=== PATIENT | female | born 2000 | race Caucasian/White ===

== ENCOUNTER 2018-11-20 09:21 | Emergency (ER) | payer SELFPAY ==
--- NOTE | 2018-11-20 09:58 | EDPHYS ---
Physician Documentation [facility] Name: Ariella Mei Age: 18 yrs Sex: Female : 2000 Arrival Date: 11/20/2018 Time: 09:23 Bed 18 Private MD: ED Physician Denis Soto HPI: 11/20 11:29 This 18 yrs old Female presents to ER via Ambulatory with complaints of Ear snw Pain. 11:29 The patient presents with pain, that is acute. The complaints affect the left ear. snw Onset: The symptoms/episode began/occurred gradually, 1 month(s) ago, and became worse yesterday, and became persistent. Associated signs and symptoms: Pertinent positives: fever. Severity of symptoms: At their worst the symptoms were moderate severe. The patient has not experienced similar symptoms in the past. The patient has not recently seen a physician. 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 - Social history:: Smoking status: . - Ebola Screening: : Patient denies travel to an Ebola-affected area in the 21 days before illness onset. ROS: 11:29 Constitutional: Negative for fever, chills, and weight loss, Eyes: Negative for injury, snw pain, redness, and discharge, Neck: Negative for injury, pain, and swelling, Cardiovascular: Negative for chest pain, palpitations, and edema, Respiratory: Negative for shortness of breath, cough, wheezing, and pleuritic chest pain, Abdomen/GI: Negative for abdominal pain, nausea, vomiting, diarrhea, and constipation, Back: Negative for injury and pain, : Negative for injury, bleeding, discharge, and swelling, MS/Extremity: Negative for injury and deformity, Skin: Negative for injury, rash, and discoloration, Neuro: Negative for headache, weakness, numbness, tingling, and seizure. 11:29 ENT: Positive for ear pain, of the left ear. Exam: 11:28 Constitutional: This is a well developed, well nourished patient who is awake, alert, snw and in no acute distress. Head/Face: Normocephalic, atraumatic. Eyes: Pupils equal round and reactive to light, extra-ocular motions intact. Lids and lashes normal. Conjunctiva and sclera are non-icteric and not injected. Cornea within normal limits. Periorbital areas with no swelling, redness, or edema. Neck: Trachea midline, no thyromegaly or masses palpated, and no cervical lymphadenopathy. Supple, full range of motion without nuchal rigidity, or vertebral point tenderness. No Meningismus. Chest/axilla: Normal chest wall appearance and motion. Nontender with no deformity. No lesions are appreciated. Cardiovascular: Regular rate and rhythm with a normal S1 and S2. No gallops, murmurs, or rubs. Normal PMI, no JVD. No pulse deficits. Respiratory: Lungs have equal breath sounds bilaterally, clear to auscultation and percussion. No rales, rhonchi or wheezes noted. No increased work of breathing, no retractions or nasal flaring. Abdomen/GI: Soft, non-tender, with normal bowel sounds. No distension or tympany. No guarding or rebound. No evidence of tenderness throughout. Back: No spinal tenderness. No costovertebral tenderness. Full range of motion. Skin: Warm, dry with normal turgor. Normal color with no rashes, no lesions, and no evidence of cellulitis. MS/ Extremity: Pulses equal, no cyanosis. Neurovascular intact. Full, normal range of motion. Neuro: Awake and alert, GCS 15, oriented to person, place, time, and situation. Cranial nerves II-XII grossly intact. Motor strength 5/5 in all extremities. Sensory grossly intact. Cerebellar exam normal. Normal gait. 11:28 ENT: External ear(s): are unremarkable, Ear canal(s): erythema, purulent discharge, that is moderate, in the left canal, swelling, TM's: not visable, because of discharge, Nose: is normal, Mouth: is normal, Posterior pharynx: is normal, erythema, that is mild, Voice: is normal. Vital Signs: 09:29 BP 122 / 65; Pulse 84; Resp 17; Temp 97.6(TE); Pulse Ox 98% on R/A; Pain 10/10; tw2 MDM: 09:41 Patient medically screened. snw 11:28 Data reviewed: vital signs, nurses notes. Data interpreted: Pulse oximetry: on room air snw is 98 %. Interpretation: normal. Counseling: I had a detailed discussion with the patient and/or guardian regarding: the historical points, exam findings, and any diagnostic results supporting the discharge/admit diagnosis, the need for outpatient follow up, to return to the emergency department if symptoms worsen or persist or if there are any questions or concerns that arise at home. Special discussion: Based on the history and exam findings, there is no indication for further emergent testing or inpatient evaluation. I discussed with the patient/guardian the need to see the ENT specialist for further evaluation of the symptoms. I discussed with the patient/guardian the need to see the primary care provider for further evaluation of the symptoms. Administered Medications: 09:59 Drug: [place] 5 mg-325 mg 1 tabs Route: PO; tw2 10:19 Follow up: Response: No adverse reaction tw2 09:59 Drug: Augmentin 875 mg Route: PO; tw2 10:20 Follow up: Response: No adverse reaction tw2 09:59 Drug: Decadron 8 mg Route: PO; tw2 10:20 Follow up: Response: No adverse reaction tw2 10:00 Drug: Cortisporin Drops 4 drops Route: Otic; Site: left ear; tw2 10:20 Follow up: Response: No adverse reaction tw2 Disposition: 12:38 Co-signature as Attending Physician, Denis Soto MD. rn Disposition: 11/20/18 09:57 Discharged to Home. Impression: Acute contact otitis externa. - Condition is Stable. - Discharge Instructions: Ibuprofen Dosage Chart, Pediatric, Otitis Externa, Heat Therapy. - Prescriptions for Polytrim 10,000 unit- 1 mg/mL Ophthalmic drops - instill 4 drop by OTIC route every 6 hours for 7 days; 1 Container. Amoxicillin 500 mg Oral Capsule - take 1 capsule by ORAL route every 8 hours for 10 days; 30 tablet. Tylenol- Codeine #3 300-30 mg Oral Tablet - take 2 tablets by ORAL route every 6 hours As needed; 20 tablet. - Medication Reconciliation Form, Thank You Letter, Antibiotic Education, Prescription Opioid Use, Work release form form. - Follow up: Private Physician; When: 2 - 3 days; Reason: Recheck today's complaints, Continuance of care, Re-evaluation by your physician. Follow up: Emergency Department; When: As needed; Reason: Worsening of condition. Signatures: Genoveva Ramos, KAREN-C DIRECTOR OF ENVIRONMENTAL SERVICES-Csnw Denis Soto MD MD rn WheatJailyn RN RN tw2 Corrections: (The following items were deleted from the chart) 10:21 09:57 11/20/2018 09:57 Discharged to Home. Impression: Acute contact otitis externa. tw2 Condition is Stable. Forms are Work release form, Medication Reconciliation Form, Thank You Letter, Antibiotic Education, Prescription Opioid Use. Follow up: Private Physician; When: 2 - 3 days; Reason: Recheck today's complaints, Continuance of care, Re-evaluation by your physician. Follow up: Emergency Department; When: As needed; Reason: Worsening of condition. snw
--- NOTE | 2018-11-20 09:58 | ER ---
Nurse's Notes [facility] Name: Ariella Mei Age: 18 yrs Sex: Female : 2000 Arrival Date: 11/20/2018 Time: 09:23 Bed 18 Private MD: Diagnosis: Acute contact otitis externa Presentation: 11/20 09:28 Presenting complaint: Patient states: i have been having LEFT ear pain for 3 weeks, i tw2 have been putting hydrogen peroxide in there and it hasnt helped. Transition of care: patient was not received from another setting of care. Onset of symptoms was November 20, 2018. Risk Assessment: Do you want to hurt yourself or someone else? Patient reports no desire to harm self or others. Initial Sepsis Screen: Does the patient meet any 2 criteria? No. Patient's initial sepsis screen is negative. Does the patient have a suspected source of infection? No. Patient's initial sepsis screen is negative. Care prior to arrival: None. 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 - Social history:: Smoking status: . - Ebola Screening: : Patient denies travel to an Ebola-affected area in the 21 days before illness onset. Screenin:36 Abuse screen: Denies threats or abuse. Nutritional screening: No deficits noted. tw2 Tuberculosis screening: No symptoms or risk factors identified. Fall Risk None identified. Assessment: 09:30 General: Appears in no apparent distress. well groomed, Behavior is calm, cooperative, tw2 appropriate for age. Pain: Complains of pain in left ear. Neuro: Level of Consciousness is awake, alert, obeys commands, Oriented to person, place, time, situation. Cardiovascular: Patient's skin is warm and dry. Respiratory: Airway is patent Respiratory effort is even, unlabored, Respiratory pattern is regular, symmetrical. GI: No signs and/or symptoms were reported involving the gastrointestinal system. : No signs and/or symptoms were reported regarding the genitourinary system. EENT: Denies drainage from ears. Derm: No signs and/or symptoms reported regarding the dermatologic system. Musculoskeletal: Range of motion: intact in all extremities. 10:20 Reassessment: Patient appears in no apparent distress at this time. No changes from tw2 previously documented assessment. Patient and/or family updated on plan of care and expected duration. Pain level reassessed. Patient is alert, oriented x 3, equal unlabored respirations, skin warm/dry/pink. Vital Signs: 09:29 BP 122 / 65; Pulse 84; Resp 17; Temp 97.6(TE); Pulse Ox 98% on R/A; Pain 10/10; tw2 ED Course: :23 Patient arrived in ED. as 09:24 Genoveva Ramos [facility]-C [facility] snw 09:24 Denis Soto MD is Attending Physician. snw 09:25 Bed in low position. Call light in reach. Adult w/ patient. Pulse ox on. NIBP on. tw2 09:28 Jailyn Wheat, NEY is Primary Nurse. tw2 09:29 Triage completed. tw2 09:30 Arm band placed on. tw2 10:20 No provider procedures requiring assistance completed. Patient did not have IV access tw2 during this emergency room visit. Administered Medications: 09:59 Drug: [place] 5 mg-325 mg 1 tabs Route: PO; tw2 10:19 Follow up: Response: No adverse reaction tw2 09:59 Drug: Augmentin 875 mg Route: PO; tw2 10:20 Follow up: Response: No adverse reaction tw2 09:59 Drug: Decadron 8 mg Route: PO; tw2 10:20 Follow up: Response: No adverse reaction tw2 10:00 Drug: Cortisporin Drops 4 drops Route: Otic; Site: left ear; tw2 10:20 Follow up: Response: No adverse reaction tw2 Outcome: 09:57 Discharge ordered by . snw 10:21 Discharged to home ambulatory, with family. tw2 10:21 Condition: stable 10:21 Discharge instructions given to patient, family, Instructed on discharge instructions, follow up and referral plans. no drinking with medication, no driving heavy equipment, medication usage, Demonstrated understanding of instructions, follow-up care, medications, Prescriptions given X 3. 10:21 Patient left the ED. tw2 Signatures: Genoveva Ramos, OVERLOCK WAISTLINE JOINER-C OVERLOCK WAISTLINE JOINER-Csnw Ena Doty Tara, RN RN tw2
[2018-11-20] MEDS ORDERED: HYDROCODONE/APAP 5/325 MG TAB ONE (10:03)
[2018-11-20] MEDS ORDERED: NEOMY/POLY/HC 1% OTIC DROPS ONE (10:03)
[2018-11-20] MEDS ORDERED: AMOX/K CLAV 875 MG TAB ONE ×2 (10:04)
[2018-11-20] MEDS ORDERED: DEXAMETHASONE 10 MG/ML VIAL ONE (10:05)
[2018-11-20 10:27] VITALS: BP 122/65; TEMP 97.6; O2SAT 98
== END 2018-11-20 10:21 | disposition home or self-care (01) ==
LOC: ER 09:21
DX: H60.532 Acute contact otitis externa, left ear (principal); D68.0 Von Willebrand disease
CPT/HCPCS: 99283; J1100

== ENCOUNTER 2018-12-19 06:56 | Emergency (ER) | payer SELFPAY ==
[2018-12-19 08:02] LABS: Absolute Lymphocytes (CBC) 1.9 K/uL (0.7-4.9); Absolute Monocytes 0.6 K/uL (0.1-1.3); Absolute Neutrophil 4.3 K/uL (1.8-8.0); Basophils % 0.5 % (0-1.3); Eosinophils % 3.5 % (0-4.4); Hematocrit 37.5 % (36.0-45.0); Lymphocytes % 26.9 % (15.3-44.8); MPV 8.7 fL (7.6-11.3); Monocytes % 8.4 % (3.3-12.3); RBC Red Blood Cell Count 4.56 M/uL (3.86-4.86)
--- NOTE | 2018-12-19 08:23 | EDPHYS ---
Physician Documentation [facility] Name: Ariella Mei Age: 18 yrs Sex: Female : 2000 Arrival Date: 12/19/2018 Time: 06:58 Bed 13 Private MD: ED Physician Yoan Stack HPI: 12/19 07:26 This 18 yrs old Female presents to ER via Ambulatory with complaints of ps1 Vaginal Bleeding. 07:35 patient states that she had a missed cycle last month and then started this morning ps1 with heavy menstruation. She has a history of VWD. She does not have PCP. States that she soaked 10-15 pads this morning since 330 am. She states that she has stopped bleeding now but is concerned because of her VWD. She does not attest to being lightheaded or short of breath. Preg negative 1+blood in UA. . 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 - Social history:: Smoking status: Patient uses tobacco products, 1 pack per week. - Ebola Screening: : Patient negative for fever greater than or equal to 101.5 degrees Fahrenheit, and additional compatible Ebola Virus Disease symptoms Patient denies exposure to infectious person Patient denies travel to an Ebola-affected area in the 21 days before illness onset No symptoms or risks identified at this time. ROS: 07:35 Constitutional: Negative for fever, chills, and weight loss, Eyes: Negative for injury, ps1 pain, redness, and discharge, Cardiovascular: Negative for chest pain, palpitations, and edema, Respiratory: Negative for shortness of breath, cough, wheezing, and pleuritic chest pain, Abdomen/GI: Negative for abdominal pain, nausea, vomiting, diarrhea, and constipation, Back: Negative for injury and pain, MS/Extremity: Negative for injury and deformity, Neuro: Negative for headache, weakness, numbness, tingling, and seizure, Psych: Negative for depression, anxiety, suicide ideation, homicidal ideation, and hallucinations. 07:35 : Positive for vaginal bleeding. Exam: 07:35 Constitutional: This is a well developed, well nourished patient who is awake, alert, ps1 and in no acute distress. Head/Face: Normocephalic, atraumatic. Eyes: Pupils equal round and reactive to light, extra-ocular motions intact. Lids and lashes normal. Conjunctiva and sclera are non-icteric and not injected. Chest/axilla: Normal chest wall appearance and motion. Nontender with no deformity. No lesions are appreciated. Cardiovascular: Regular rate and rhythm. No gallops, murmurs, or rubs. Normal PMI, no JVD. No pulse deficits. Respiratory: Lungs have equal breath sounds bilaterally, clear to auscultation and percussion. No rales, rhonchi or wheezes noted. No increased work of breathing, no retractions or nasal flaring. Skin: Warm, dry with normal turgor. Normal color with no rashes, no lesions, and no evidence of cellulitis. MS/ Extremity: Pulses equal, no cyanosis. Neurovascular intact. Full, normal range of motion. Neuro: Awake and alert, GCS 15, oriented to person, place, time, and situation. Cranial nerves II-XII grossly intact. Sensory grossly intact. Psych: Awake, alert, with orientation to person, place and time. Behavior, mood, and affect are within normal limits. Vital Signs: 07:11 BP 114 / 83; Pulse 80; Resp 16; Pulse Ox 99% on R/A; Weight 81.65 kg; Height 5 ft. 6 iw in. (167.64 cm); Pain 9/10; 08:42 BP 117 / 79; Pulse 75; Resp 14; Pulse Ox 100% ; bp 07:11 Body Mass Index 29.05 (81.65 kg, 167.64 cm) iw MDM: 07:40 Patient medically screened. ps1 08:22 Data reviewed: vital signs, nurses notes, lab test result(s), and as a result, I will ps1 discharge patient. Counseling: I had a detailed discussion with the patient and/or guardian regarding: the historical points, exam findings, and any diagnostic results supporting the discharge/admit diagnosis, the presence of at least one elevated blood pressure reading (>120/80) during this emergency department visit, lab results, the need for outpatient follow up, Hematology, to return to the emergency department if symptoms worsen or persist or if there are any questions or concerns that arise at home. ED course: Patient has stopped bleeding and has normal hemoglobin. Patient stable for discharge. Return if lightheaded or has > 10 pads in 24 hours. . 12/19 07:21 Order name: CBC with Diff; Complete Time: 08:16 ps1 12/19 07:46 Order name: Urine Dipstick--Ancillary (enter results) bd 12/19 07:21 Order name: Urine Dipstick-Ancillary (obtain specimen); Complete Time: 07:29 ps1 12/19 07:21 Order name: Urine Test (obtain specimen); Complete Time: 07:29 ps1 12/19 07:46 Order name: Urine --Ancillary (enter results) bd Administered Medications: No medications were administered Disposition: 12/19/18 08:21 Discharged to Home. Impression: Menorrhagia. - Condition is Stable. - Discharge Instructions: Menorrhagia. - Medication Reconciliation Form, Thank You Letter, Antibiotic Education, Prescription Opioid Use form. - Follow up: Private Physician; When: As needed; Reason: Further diagnostic work-up, Recheck today's complaints, Continuance of care, Re-evaluation by your physician. Follow up: Emergency Department; When: As needed; Reason: Worsening of condition, lightheaded, short of breath, continued heavy vaginal bleeding > 10 pads in next 24 hours. . - Problem is new. - Symptoms have improved. Signatures: Dispatcher [employer] EDMima Finnegan RN RN iw Peltier, Brian, RN RN bp Singer, Phillip, MD MD ps1 Corrections: (The following items were deleted from the chart) 08:44 08:21 12/19/2018 08:21 Discharged to Home. Impression: Menorrhagia. Condition is bp Stable. Forms are Medication Reconciliation Form, Thank You Letter, Antibiotic Education, Prescription Opioid Use. Follow up: Private Physician; When: As needed; Reason: Further diagnostic work-up, Recheck today's complaints, Continuance of care, Re-evaluation by your physician. Follow up: Emergency Department; When: As needed; Reason: Worsening of condition, lightheaded, short of breath, continued heavy vaginal bleeding > 10 pads in next 24 hours. . Problem is new. Symptoms have improved. ps1
--- NOTE | 2018-12-19 08:23 | ER ---
Nurse's Notes [facility] Name: Ariella Mei Age: 18 yrs Sex: Female : 2000 Arrival Date: 12/19/2018 Time: 06:58 Bed 13 Private MD: Diagnosis: Menorrhagia Presentation: 12/19 07:09 Presenting complaint: Patient states: heavy vaginal bleeding and cramping since this iw morning at 0345, LMP was late September. Transition of care: patient was not received from another setting of care. Onset of symptoms was December 19, 2018. Risk Assessment: Do you want to hurt yourself or someone else? Patient reports no desire to harm self or others. Initial Sepsis Screen: Does the patient meet any 2 criteria? No. Patient's initial sepsis screen is negative. Does the patient have a suspected source of infection? No. Patient's initial sepsis screen is negative. Care prior to arrival: None. 07:09 Method Of Arrival: Ambulatory iw 07:09 Acuity: JEFF 3 iw Triage Assessment: 07:17 General: Appears in no apparent distress. comfortable, Behavior is cooperative, bp appropriate for age, anxious. Pain: Denies pain. : Reports vaginal bleeding that is bright red, heavy flow. 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 - Social history:: Smoking status: Patient uses tobacco products, 1 pack per week. - Ebola Screening: : Patient negative for fever greater than or equal to 101.5 degrees Fahrenheit, and additional compatible Ebola Virus Disease symptoms Patient denies exposure to infectious person Patient denies travel to an Ebola-affected area in the 21 days before illness onset No symptoms or risks identified at this time. Screenin:19 Abuse screen: Denies threats or abuse. Denies injuries from another. Nutritional bp screening: No deficits noted. Tuberculosis screening: No symptoms or risk factors identified. Fall Risk None identified. Assessment: 07:18 General: Appears in no apparent distress. comfortable, Behavior is cooperative, bp appropriate for age, anxious. Pain: Denies pain. Neuro: Level of Consciousness is awake, alert, obeys commands, Oriented to person, place, time, situation, Appropriate for age. Cardiovascular: No deficits noted. Respiratory: Airway is patent Respiratory effort is even, unlabored, Respiratory pattern is regular, symmetrical. GI: No signs and/or symptoms were reported involving the gastrointestinal system. : Reports vaginal bleeding that is heavy flow. EENT: No deficits noted. Derm: No deficits noted. Musculoskeletal: Circulation, motion, and sensation intact. Range of motion: intact in all extremities. 08:42 Reassessment: PT D/C HOME AMBULATORY, DX WITH MENORRHAGIA. bp Vital Signs: 07:11 BP 114 / 83; Pulse 80; Resp 16; Pulse Ox 99% on R/A; Weight 81.65 kg; Height 5 ft. 6 iw in. (167.64 cm); Pain 9/10; 08:42 BP 117 / 79; Pulse 75; Resp 14; Pulse Ox 100% ; bp 07:11 Body Mass Index 29.05 (81.65 kg, 167.64 cm) ED Course: 06:58 Patient arrived in ED. ag3 07:08 Yoan Stack MD is Attending Physician. ps1 07:10 Triage completed. iw 07:10 Duran Nascimento, RN is Primary Nurse. bp 07:12 Arm band placed on. iw 07:19 Patient has correct armband on for positive identification. Bed in low position. Call bp light in reach. Side rails up X2. Adult w/ patient. 07:29 Urine collected: clean catch specimen, cloudy, nathaly colored. jb1 08:42 No provider procedures requiring assistance completed. Patient did not have IV access bp during this emergency room visit. Administered Medications: No medications were administered Outcome: 08:21 Discharge ordered by . ps1 08:43 Discharged to home ambulatory. bp 08:43 Condition: stable 08:43 Discharge instructions given to patient, Instructed on discharge instructions, follow up and referral plans. Demonstrated understanding of instructions, follow-up care. 08:44 Patient left the ED. bp Signatures: You Boucher jb1 Mima Sinha RN RN iw Duran Nascimento RN RN bp Yoan Stack MD MD ps1 Bee Dunn ag3
[2018-12-19 08:52] VITALS: BP 117/79; O2SAT 100
[2018-12-19 10:43] LABS: Urine Blood 1+ (NEG); Urine Glucose NEGATIVE (NEG); Urine Protein NEGATIVE (NEG); Urine pH 6.5 (5.0-7.0)
== END 2018-12-19 08:44 | disposition home or self-care (01) ==
LOC: ER 06:56
DX: N92.0 Excessive and frequent menstruation with regular cycle (principal); J45.909 Unspecified asthma, uncomplicated; F17.200 Nicotine dependence, unspecified, uncomplicated
CPT/HCPCS: 36415; 81003; 81025; 85025; 99283

== ENCOUNTER 2019-01-31 11:36 | Emergency (ER) | payer SELFPAY ==
--- NOTE | 2019-01-31 12:30 | RAD REPORT ---
EXAM DESCRIPTION: RAD - Chest Single View - 01/31/2019 12:24 pm CLINICAL HISTORY: COUGH Chest pain. COMPARISON: Chest Pa And Lat (2 Views) dated 12/23/2016; CHEST SINGLE VIEW dated 08/12/2012; CHEST PA AND LAT 2 VIEW dated 09/17/2009; CHEST PA AND LAT 2 VIEW dated 12/13/2008 FINDINGS: Portable technique limits examination quality. The lungs are grossly clear. The heart is normal in size. No displaced fractures. IMPRESSION: No acute intrathoracic process suspected.
[2019-01-31 12:32] LABS: Absolute Monocytes 0.7 K/uL (0.1-1.3); Absolute Neutrophil 6.3 K/uL (1.8-8.0); Basophils % 0.3 % (0-1.3); Eosinophils % 0.9 % (0-4.4); Hematocrit 37.2 % (36.0-45.0); Lymphocytes % 22.3 % (15.3-44.8); MPV 8.6 fL (7.6-11.3); Monocytes % 8.1 % (3.3-12.3); RBC Red Blood Cell Count 4.47 M/uL (3.86-4.86)
[2019-01-31 12:34] LABS: Urine Blood NEGATIVE (NEG); Urine Glucose NEGATIVE (NEG); Urine Protein NEGATIVE (NEG); Urine Specific Gravity 1.025 (1.005-1.030)
[2019-01-31 12:45] LABS: ALT/SGPT 13 U/L (12-78); AST/SGOT 10 U/L (15-37); Albumin 3.6 g/dL (3.4-5.0); Alkaline Phosphatase 120 U/L (45-117); BUN Blood Urea Nitrogen 12 mg/dL (7-18); Bicarbonate 24 mmol/L (21-32); Bilirubin Direct < 0.1 mg/dL (0-0.2); Bilirubin Total 0.3 mg/dL (0.2-1.0); Glucose Level 89 mg/dL (74-106); Lipase 66 U/L (73-393); Protein, Total 7.8 g/dL (6.4-8.2); Sodium Level 140 mmol/L (136-145)
--- NOTE | 2019-01-31 13:11 | EDPHYS ---
Physician Documentation [facility] Name: Ariella Mei Age: 18 yrs Sex: Female : 2000 Arrival Date: 01/31/2019 Time: 11:38 Bed 14 Private MD: ED Physician Denis Soto HPI: 01/31 12:23 This 18 yrs old Female presents to ER via Ambulatory with complaints of jr8 Vomiting, Cough. 12:23 Possible causes: unknown. The symptoms are aggravated by nothing. The symptoms are jr8 alleviated by nothing. Associated signs and symptoms: Pertinent positives: fever. Severity of symptoms: At their worst the symptoms were mild in the emergency department the symptoms are unchanged. The patient has not experienced similar symptoms in the past. The patient has not recently seen a physician. Patient stated that she has had a continued dry cough for the past month. Starting to feel better but now having vomiting and occasional fevers. 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 - Social history:: Smoking status: Patient/guardian denies using tobacco. - Ebola Screening: : Patient negative for fever greater than or equal to 101.5 degrees Fahrenheit, and additional compatible Ebola Virus Disease symptoms Patient denies exposure to infectious person Patient denies travel to an Ebola-affected area in the 21 days before illness onset. ROS: 12:23 Eyes: Negative for injury, pain, redness, and discharge, ENT: Negative for injury, jr8 pain, and discharge, Neck: Negative for injury, pain, and swelling, Cardiovascular: Negative for chest pain, palpitations, and edema, Back: Negative for injury and pain, MS/Extremity: Negative for injury and deformity, Skin: Negative for injury, rash, and discoloration, Neuro: Negative for headache, weakness, numbness, tingling, and seizure. 12:23 Constitutional: Positive for fever. 12:23 Respiratory: Positive for cough, Negative for dyspnea on exertion, shortness of breath, sputum production, wheezing. 12:23 Abdomen/GI: Positive for abdominal pain, nausea and vomiting, Negative for diarrhea, constipation, abdominal cramps, abdominal distension, anorexia, dysphagia, hematemesis, black/tarry stool, rectal pain, rectal bleeding, bowel incontinence, flatulence. Exam: 12:23 Eyes: Pupils equal round and reactive to light, extra-ocular motions intact. Lids and jr8 lashes normal. Conjunctiva and sclera are non-icteric and not injected. Cornea within normal limits. Periorbital areas with no swelling, redness, or edema. Neck: Trachea midline, no thyromegaly or masses palpated, and no cervical lymphadenopathy. Supple, full range of motion without nuchal rigidity, or vertebral point tenderness. No Meningismus. Cardiovascular: Regular rate and rhythm with a normal S1 and S2. No gallops, murmurs, or rubs. Normal PMI, no JVD. No pulse deficits. Respiratory: Lungs have equal breath sounds bilaterally, clear to auscultation and percussion. No rales, rhonchi or wheezes noted. No increased work of breathing, no retractions or nasal flaring. Back: No spinal tenderness. No costovertebral tenderness. Full range of motion. Skin: Warm, dry with normal turgor. Normal color with no rashes, no lesions, and no evidence of cellulitis. MS/ Extremity: Pulses equal, no cyanosis. Neurovascular intact. Full, normal range of motion. Neuro: Awake and alert, GCS 15, oriented to person, place, time, and situation. Cranial nerves II-XII grossly intact. Motor strength 5/5 in all extremities. Sensory grossly intact. Cerebellar exam normal. Normal gait. 12:23 ENT: External ear(s): are unremarkable, Ear canal(s): are normal, clear, TM's: are normal, no evidence of bulging, no dullness, no erythema, no fluid levels, no hemotympanum, no rupture, normal bony landmarks, normal mobility, Nose: External nose: no obvious acute abnormality, Nasal septum: is midline, Nasal mucosa: moist, Turbinates: are normal, Mouth: Lips: moist, Oral mucosa: pink and intact, moist, Gums: pink, Tongue: is moist, Posterior pharynx: Airway: patent, Tonsils: with erythema, no enlargement, no exudate, no ulcerations, Uvula: midline, non-edematous, no erythema, swelling, is not appreciated. 12:23 Abdomen/GI: Inspection: abdomen appears normal, Bowel sounds: active, all quadrants, Palpation: soft, in all quadrants, mild abdominal tenderness, in the suprapubic area and left lower quadrant, mass, is not appreciated, rebound tenderness, is not appreciated, voluntary guarding, is not appreciated, involuntary guarding, is not appreciated, no appreciated organomegaly, Indicators: McBurney's point is not tender, Rivas's sign is negative, Rovsing's sign is negative, Liver: tenderness, is not appreciated. Vital Signs: 11:54 BP 123 / 87 LA; Pulse 85; Resp 18 S; Temp 98.1(O); Pulse Ox 100% on R/A; Weight 77.11 rv kg; Height 5 ft. 6 in. (167.64 cm); Pain 0/10; 13:02 BP 105 / 77 LA Supine; Pulse 66; Resp 16 S; Pulse Ox 100% on R/A; rv 11:54 Body Mass Index 27.44 (77.11 kg, 167.64 cm) rv MDM: 11:49 Patient medically screened. [facility] 13:06 Differential diagnosis: Nonspecific abd pain, gastritis, diverticulitis, viral jr8 gastroenteritis, pneumonia, acute upper respiratory infection, , influenza. Data reviewed: vital signs, nurses notes, lab test result(s), radiologic studies, plain films. Data interpreted: Pulse oximetry: on room air is 100 %. Interpretation: normal. Counseling: I had a detailed discussion with the patient and/or guardian regarding: the historical points, exam findings, and any diagnostic results supporting the discharge/admit diagnosis, lab results, radiology results, the need for outpatient follow up, a family practitioner, to return to the emergency department if symptoms worsen or persist or if there are any questions or concerns that arise at home. ED course: Discussed with patient no acute findings on labs and imaging. VS stable. Would recommend nausea medicine for now and would give her short course of steroids for persistent cough. Patient good with this and would f/u . 01/31 11:59 Order name: Strep; Complete Time: 12:36 jr8 01/31 11:59 Order name: Basic Metabolic Panel; Complete Time: 12:49 jr8 01/31 11:59 Order name: CBC with Diff; Complete Time: 12:43 01/31 11:59 Order name: Creatinine for Radiology; Complete Time: 12:43 01/31 11:59 Order name: Hepatic Function; Complete Time: 12:49 01/31 11:59 Order name: Lipase; Complete Time: 12:49 01/31 11:59 Order name: Urine Test (obtain specimen); Complete Time: 12:09 [facility] 01/31 11:59 Order name: Urine Dipstick-Ancillary (obtain specimen); Complete Time: 12:09 01/31 11:59 Order name: XRAY Chest (1 view); Complete Time: 12:36 01/31 11:59 Order name: IV Saline Lock; Complete Time: 12:32 01/31 11:59 Order name: Labs collected and sent; Complete Time: 12:32 [facility] 01/31 12:12 Order name: Urine Dipstick--Ancillary (enter results); Complete Time: 12:36 01/31 12:12 Order name: Urine --Ancillary (enter results); Complete Time: 12:36 01/31 12:36 Order name: Throat Culture EDMS Administered Medications: No medications were administered Disposition: 17:48 Co-signature as Attending Physician, Denis Soto MD. rn Disposition: 01/31/19 13:10 Discharged to Home. Impression: Cough, Nausea. - Condition is Stable. - Discharge Instructions: Nausea, Adult, Cough, Adult, Form - Return To Work. - Prescriptions for Prednisone 20 mg Oral Tablet - take 1 tablet by ORAL route once daily for 5 days; 5 tablet. - Medication Reconciliation Form, Thank You Letter, Antibiotic Education, Prescription Opioid Use, Work release form form. - Follow up: Private Physician; When: 1 week; Reason: If symptoms return, Recheck today's complaints, Continuance of care, Re-evaluation by your physician. - Problem is new. - Symptoms have improved. Signatures: Dispatcher [employer] EDMS Denis Soto MD MD rn Roszak, Josh, PA PA jr8 Tyler Almendarez RN RN rv Corrections: (The following items were deleted from the chart) 13:22 13:10 01/31/2019 13:10 Discharged to Home. Impression: Cough; Nausea. Condition is rv Stable. Discharge Instructions: Form - Return To Work. Forms are Work release form, Medication Reconciliation Form, Thank You Letter, Antibiotic Education, Prescription Opioid Use. Follow up: Private Physician; When: 1 week; Reason: If symptoms return, Recheck today's complaints, Continuance of care, Re-evaluation by your physician. Problem is new. Symptoms have improved. jr8
--- NOTE | 2019-01-31 13:11 | ER ---
Nurse's Notes [facility] Name: Ariella Mei Age: 18 yrs Sex: Female : 2000 Arrival Date: 01/31/2019 Time: 11:38 Bed 14 Private MD: Diagnosis: Cough;Nausea Presentation: 01/31 11:51 Presenting complaint: Patient states: I HAVE A BAD COUGH FOR A MONTH NOW AND I STARTED rv THROWING UP SINCE LAST WEEK. MY COUGH IS GETTING BETTER NOW BUT I STILL THROWING UP. I HAD FEVER EARLY THIS MORNING. Transition of care: patient was not received from another setting of care. Onset of symptoms was January 31, 2019 at 06:00. Risk Assessment: Do you want to hurt yourself or someone else? Patient reports no desire to harm self or others. Initial Sepsis Screen: Does the patient meet any 2 criteria? No. Patient's initial sepsis screen is negative. Does the patient have a suspected source of infection? No. Patient's initial sepsis screen is negative. Care prior to arrival: None. 11:51 Method Of Arrival: Ambulatory rv 11:51 Acuity: JEFF 3 rv Triage Assessment: 11:55 General: Appears in no apparent distress. comfortable, Behavior is calm, cooperative. rv Pain: Denies pain. EENT: No signs and/or symptoms were reported regarding the EENT system. Neuro: Level of Consciousness is awake, alert, obeys commands, Oriented to person, place, time, situation. Cardiovascular: Capillary refill < 3 seconds. Respiratory: Airway is patent. GI: Reports nausea, vomiting. : No signs and/or symptoms were reported regarding the genitourinary system. Derm: Skin is intact. Musculoskeletal: No signs and/or symptoms reported regarding the musculoskeletal system. 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 - Social history:: Smoking status: Patient/guardian denies using tobacco. - Ebola Screening: : Patient negative for fever greater than or equal to 101.5 degrees Fahrenheit, and additional compatible Ebola Virus Disease symptoms Patient denies exposure to infectious person Patient denies travel to an Ebola-affected area in the 21 days before illness onset. Screenin:56 Abuse screen: Denies threats or abuse. Denies injuries from another. Nutritional rv screening: No deficits noted. Tuberculosis screening: No symptoms or risk factors identified. Fall Risk None identified. Assessment: 12:28 General: Appears in no apparent distress. comfortable, Behavior is calm, cooperative. rv Pain: Denies pain. Neuro: Level of Consciousness is awake, alert, obeys commands, Oriented to person, place, time, situation. Cardiovascular: Capillary refill < 3 seconds. Respiratory: Airway is patent. GI: Reports nausea, vomiting. GI: Abdomen is flat. : No signs and/or symptoms were reported regarding the genitourinary system. EENT: No signs and/or symptoms were reported regarding the EENT system. Derm: Skin is intact. Musculoskeletal: No signs and/or symptoms reported regarding the musculoskeletal system. Vital Signs: 11:54 BP 123 / 87 LA; Pulse 85; Resp 18 S; Temp 98.1(O); Pulse Ox 100% on R/A; Weight 77.11 rv kg; Height 5 ft. 6 in. (167.64 cm); Pain 0/10; 13:02 BP 105 / 77 LA Supine; Pulse 66; Resp 16 S; Pulse Ox 100% on R/A; rv 11:54 Body Mass Index 27.44 (77.11 kg, 167.64 cm) rv ED Course: 11:38 Patient arrived in ED. rg4 11:49 Tony Espinosa PA is PHCP. jr8 11:49 Denis Soto MD is Attending Physician. jr8 11:53 Triage completed. rv 11:56 Patient has correct armband on for positive identification. Bed in low position. Call rv light in reach. Side rails up X 1. Adult w/ patient. Pulse ox on. NIBP on. 11:56 Patient placed in an exam room, on a stretcher, on pulse oximetry. rv 12:15 Inserted saline lock: 22 gauge in right antecubital area, using aseptic technique. rv Blood collected. 12:24 XRAY Chest (1 view) In Process Unspecified. EDMS 13:01 Erickson, Tyler, RN is Primary Nurse. rv 13:02 No provider procedures requiring assistance completed. IV discontinued, bleeding rv controlled, No redness/swelling at site. Pressure dressing applied. 13:35 Throat Culture Sent. rv Administered Medications: No medications were administered Outcome: 13: Discharged to home ambulatory. rv 13:02 Condition: good 13:10 Discharge ordered by MD. sesay 13:22 Discharge instructions given to patient, Instructed on discharge instructions, follow rv up and referral plans. medication usage, Demonstrated understanding of instructions, follow-up care, medications, Prescriptions given X 1. 13:22 Patient left the ED. rv Signatures: Dispatcher [employer] EDMS Tony Espinosa PA PA jr8 Garcia, Rubi rg4 Tyler Almendarez, RN RN rv
[2019-01-31 13:32] VITALS: TEMP 98.1; O2SAT 100
[2019-01-31 13:33] VITALS: BP 105/77
== END 2019-01-31 13:22 | disposition home or self-care (01) ==
LOC: ER 11:36
DX: R05 Cough (principal); R11.0 Nausea
CPT/HCPCS: 36415; 71045; 80048; 80076; 81003; 81025; 83690; 85025; 87070; 87081; 99284

== ENCOUNTER 2019-03-22 16:37 | Emergency (ER) | payer SELFPAY ==
--- OUTSIDE RECORDS SUMMARY | 2019-03-22 16:39 | XMS REPORT ---
:2000 Author Organization [facility] Address [address] [place] [address] Dr. Brandt [address] [place] [id number] Care Team Providers Name Role Phone Unavailable Unavailable Unavailable Problems This patient has no known problems. Allergies, Adverse Reactions, Alerts This patient has no known allergies or adverse reactions. Medications This patient has no known medications.
--- NOTE | 2019-03-22 17:23 | RAD REPORT ---
EXAM DESCRIPTION: CT - Head Brain Wo Cont - 03/22/2019 5:17 pm CLINICAL HISTORY: left sided headache Headache, drowsiness COMPARISON: <Comparisons> TECHNIQUE: All CT scans are performed using dose optimization technique as appropriate and may inclu de automated exposure control or mA/KV adjustment according to patient size. FINDINGS: No intracranial hemorrhage, hydrocephalus or extra-axial fluid collection.No areas of brai n edema or evidence of midline shift. The paranasal sinuses and mastoids are clear. Soft tissue of the left external ear are quite thickene d. Fluid is seen within the middle and inner ear structures on the left as well. The calvarium is int act. IMPRESSION: No acute intracranial abnormality. Infection of left external, middle and inner ear structures are suspected. No mastoiditis findings.
[2019-03-22] MEDS ORDERED: NA CHLORIDE 0.9% 1,000 ML ONE (17:34)
[2019-03-22] MEDS ORDERED: MORPHINE 4 MG/ML SYR ONE (17:34)
[2019-03-22] MEDS ORDERED: ONDANSETRON 4 MG/2 ML VIAL ONE (17:34)
[2019-03-22 17:48] LABS: Absolute Neutrophil 10.1 K/uL (1.8-8.0); Basophils % 1.9 % (0-1.3); Eosinophils % 1.3 % (0-4.4); Hematocrit 39.2 % (36.0-45.0); Lymphocytes % 7.8 % (15.3-44.8); MPV 8.5 fL (7.6-11.3); Monocytes % 7.7 % (3.3-12.3); RBC Red Blood Cell Count 4.65 M/uL (3.86-4.86)
[2019-03-22 18:05] LABS: Albumin 3.5 g/dL (3.4-5.0); Bilirubin Total 0.3 mg/dL (0.2-1.0); Potassium 4.1 mmol/L (3.5-5.1); Protein, Total 8.1 g/dL (6.4-8.2)
[2019-03-22] MEDS ORDERED: CEFTRIAXONE/SWI 1gm 1 GM/10 ML SYR ONE (18:39)
[2019-03-22] MEDS ORDERED: FENTANYL CITR 100 MCG/2 ML ONE (18:56)
--- NOTE | 2019-03-22 19:03 | EDPHYS ---
Physician Documentation [facility] Name: Ariella Mei Age: 19 yrs Sex: Female : 2000 Arrival Date: 03/22/2019 Time: 16:39 Bed 18 Private MD: ED Physician Dallas Yoder HPI: 03/22 16:51 This 19 yrs old Female presents to ER via Ambulatory with complaints of jmm Headache, Neck Problem. 16:51 The patient presents with pain, swelling. Onset: The symptoms/episode began/occurred jmm gradually, 2 day(s) ago. Modifying factors: The symptoms are alleviated by nothing, the symptoms are aggravated by pulling on ears. Associated signs and symptoms: Pertinent positives: Pertinent negatives: fever. This is a 19 year old female with a history of von willebrands presents to the ED with complaints of left earache. Patient was seen at [facility] and prescribed oral and topic antibiotics. Patient states there has been no relief since beginning medication. Patient states prescribed tylenol with codeine has no helped with pain. Patient states the pain radiates to her head. . 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 - Social history:: Smoking status: Patient uses tobacco products, denies chronic smoking, but will smoke occasionally. - Ebola Screening: : No symptoms or risks identified at this time. ROS: 16:51 Constitutional: Negative for fever, chills, and weight loss. jmm 16:51 Neck: Negative for injury, pain, and swelling, Cardiovascular: Negative for chest pain, palpitations, and edema, Respiratory: Negative for shortness of breath, cough, wheezing, and pleuritic chest pain, Abdomen/GI: Negative for abdominal pain, nausea, vomiting, diarrhea, and constipation, Back: Negative for injury and pain. 16:51 ENT: Positive for ear pain. 16:51 Neuro: Positive for headache. 16:51 All other systems are negative. Exam: 16:51 Constitutional: This is a well developed, well nourished patient who is awake, alert, jmm and in no acute distress. Head/Face: atraumatic. Eyes: EOMI, no conjunctival erythema appreciated 16:51 Chest/axilla: Normal chest wall appearance and motion. Cardiovascular: Regular rate and rhythm. No edema appreciated Respiratory: Normal respirations, no respiratory distress appreciated Abdomen/GI: Non distended, soft Back: Normal ROM 16:51 ENT: TM's: not visable, because of discharge, erythema noted to the posterior auricular region. 16:51 Neck: ROM/movement: is normal, is supple. 16:51 Skin: erythema noted to the posterior auricular region. 16:51 Neuro: Orientation: is normal, Mentation: is normal, Memory: is normal, Gait: is steady. 16:51 Psych: Behavior/mood is pleasant, cooperative. Vital Signs: 16:48 BP 125 / 76; Pulse 103; Resp 18; Temp 97.8(TE); Pulse Ox 97% on R/A; Weight 77.11 kg; ph Height 5 ft. 6 in. (167.64 cm); Pain 10/10; 18:00 BP 100 / 75; Pulse 79; Resp 18; Pulse Ox 99% on R/A; em 19:20 BP 113 / 72; Pulse 85; Resp 16 S; Pulse Ox 100% on R/A; jd3 16:48 Body Mass Index 27.44 (77.11 kg, 167.64 cm) ph MDM: 16:51 Patient medically screened. [facility] 19:00 Data reviewed: vital signs, nurses notes. Counseling: I had a detailed discussion with flaca the patient and/or guardian regarding: the historical points, exam findings, and any diagnostic results supporting the discharge/admit diagnosis, lab results, radiology results, the need for outpatient follow up, to return to the emergency department if symptoms worsen or persist or if there are any questions or concerns that arise at home. 19:00 ED course: Pain is partially relieved in the ED. CT negative for mastoiditis . Patient [facility] advised to closely follow up with pcp. Ear wick was placed in the ED. Family was given strict return precautions for increased pain, fever, or any other concerning symptoms. Family and patient understood and agrees with the plan of care. . 03/22 17:02 Order name: CBC with Diff; Complete Time: 18:03 [facility] 03/22 17:02 Order name: CMP; Complete Time: 18:12 [facility] 03/22 17:02 Order name: CT Head Brain wo Cont; Complete Time: 17:42 [facility] 03/22 17:02 Order name: Saline Lock; Complete Time: 17:47 [facility] Administered Medications: 17:35 Drug: Zofran 4 mg Route: IVP; Site: right antecubital; ss 18:16 Follow up: Response: No adverse reaction; Nausea is decreased em 17:37 Drug: NS 0.9% 1000 ml Route: IV; Rate: 1 bolus; Site: right antecubital; ss 19:25 Follow up: Response: No adverse reaction; IV Status: Completed infusion; IV Intake: jd3 1000ml 17:37 Drug: morphine 2 mg Route: IVP; Site: right antecubital; ss 18:17 Follow up: Response: No adverse reaction; Pain is decreased em 17:49 Not Given (Other Intervention Used; pt request half the dosage): morphine 4 mg IVP once ss 18:25 Drug: morphine 2 mg Route: IVP; Site: right antecubital; em 19:25 Follow up: Response: No adverse reaction jd3 18:27 Drug: Rocephin - (cefTRIAXone) 1 grams Route: IVPB; Infused Over: 30 mins; Site: right tw2 antecubital; 19:00 Follow up: Response: No adverse reaction; IV Status: Completed infusion jd3 18:31 Not Given (Physician Discretion): morphine 4 mg IVP once em 18:49 Drug: fentaNYL (PF) 25 mcg Route: IVP; Site: right antecubital; ss 19:25 Follow up: Response: No adverse reaction jd3 Disposition: 03/22/19 19:01 Discharged to Home. Impression: Cellulitis, Otitis Externa, Otitis media. - Condition is Stable. - Prescriptions for Ultram 50 mg Oral Tablet - take 1 tablet by ORAL route every 6 hours As needed; 30 tablet. - Medication Reconciliation Form, Thank You Letter, Antibiotic Education, Prescription Opioid Use form. - Follow up: Lynn Card MD; When: 2 - 3 days; Reason: Recheck today's complaints, Continuance of care, Re-evaluation by your physician. Addendum: 03/26/2019 08:24 Co-signature as Attending Physician, Dallas Yoder MD I agree with the assessment and c montanez plan of care. Signatures: Dispatcher [employer] EDDallas Solis MD MD cha Mickail, Joel, PA PA jmm Munoz, Edgar, CLERICAL AIDE TEACHER CLERICAL AIDE TEACHER Grisel Shell, RN RN ss Renetta Kc RN RN Jailyn Wheat RN RN tw2 Jus Farley RN RN jd3 Corrections: (The following items were deleted from the chart) 03/22 19:27 19:01 03/22/2019 19:01 Discharged to Home. Impression: Cellulitis; Otitis Externa; jd3 Otitis media. Condition is Stable. Forms are Medication Reconciliation Form, Thank You Letter, Antibiotic Education, Prescription Opioid Use. Follow up: Lynn Card; When: 2 - 3 days; Reason: Recheck today's complaints, Continuance of care, Re-evaluation by your physician. flaca
--- NOTE | 2019-03-22 19:03 | ER ---
Nurse's Notes [facility] [place] Name: Ariella Mei Age: 19 yrs Sex: Female : 2000 Arrival Date: 03/22/2019 Time: 16:39 Bed 18 Private MD: Diagnosis: Cellulitis;Otitis Externa;Otitis media Presentation: 03/22 16:46 Presenting complaint: Patient states: L ear pain and headache x 5-6 days, seen at [place] last night and dx w/ inner, middle, and outer ear infection and prescribed Augmentin and Tylenol #3 but states that pain has gotten worse and now radiates to jaw and L side of face, denies N/V. Transition of care: patient was not received from another setting of care. Onset of symptoms was March 22, 2019. Risk Assessment: Do you want to hurt yourself or someone else? Patient reports no desire to harm self or others. Initial Sepsis Screen: Does the patient meet any 2 criteria? No. Patient's initial sepsis screen is negative. Care prior to arrival: Medication(s) given: Tylenol #3 at 1400. 16:46 Method Of Arrival: Ambulatory 16:46 Acuity: JEFF 4 ph 19:20 Initial Sepsis Screen: Does the patient have a suspected source of infection? No. jd3 Patient's initial sepsis screen is negative. Triage Assessment: 19:20 Headache History: Denies prior headaches. Pain: Pain at worst was 10 out of 10 on a jd3 pain scale. Pain began gradually, Also complains of no other associated symptoms. 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 - Social history:: Smoking status: Patient uses tobacco products, denies chronic smoking, but will smoke occasionally. - Ebola Screening: : No symptoms or risks identified at this time. Screenin:33 Abuse screen: Denies threats or abuse. Nutritional screening: No deficits noted. tw2 Tuberculosis screening: No symptoms or risk factors identified. Fall Risk None identified. Assessment: 17:30 General: Appears in no apparent distress. comfortable, Behavior is calm, cooperative, em Reports fever for 1-2 days. Pain: Complains of pain in left ear. Neuro: Level of Consciousness is awake, alert, obeys commands, Oriented to person, place, time, situation. Cardiovascular: Capillary refill < 3 seconds Patient's skin is warm and dry. Respiratory: Airway is patent Respiratory effort is even, unlabored, Respiratory pattern is regular, symmetrical, Denies cough. GI: Abdomen is flat, Reports nausea, vomiting. Derm: Skin is intact, is healthy with good turgor, Skin is pink, warm \T\ dry. Musculoskeletal: Capillary refill < 3 seconds, Range of motion: intact in all extremities. 17:45 Reassessment: The previous assessment is accurate. call light remains within reach. ss 18:01 Reassessment: provider notified. Patient states symptoms have not improved. tw2 18:55 Reassessment: Patient appears in no apparent distress at this time. Patient and/or em family updated on plan of care and expected duration. Pain level reassessed. Patient is alert, oriented x 3, equal unlabored respirations, skin warm/dry/pink. 19:10 Reassessment: Patient appears in no apparent distress at this time. Patient and/or jd3 family updated on plan of care and expected duration. Pain level reassessed. Patient is alert, oriented x 3, equal unlabored respirations, skin warm/dry/pink. Patient states feeling better. Vital Signs: 16:48 BP 125 / 76; Pulse 103; Resp 18; Temp 97.8(TE); Pulse Ox 97% on R/A; Weight 77.11 kg; ph Height 5 ft. 6 in. (167.64 cm); Pain 10/10; 18:00 BP 100 / 75; Pulse 79; Resp 18; Pulse Ox 99% on R/A; em 19:20 BP 113 / 72; Pulse 85; Resp 16 S; Pulse Ox 100% on R/A; jd3 16:48 Body Mass Index 27.44 (77.11 kg, 167.64 cm) ED Course: 16:39 Patient arrived in ED. mr 16:40 Bed in low position. Call light in reach. Adult w/ patient. tw2 16:46 Cosmo Garzon PA is PHCP. [facility] 16:46 [place] Yoder MD is Attending Physician. jmm 16:48 Triage completed. ph 16:50 Arm band placed on. ph 16:59 New Fajardo LVN is Primary Nurse. em 17:18 CT Head Brain wo Cont In Process Unspecified. EDMS 17:30 Initial lab(s) drawn, by me, sent to lab. Inserted saline lock: 22 gauge in right em antecubital area, using aseptic technique. Blood collected. 19:01 Lynn Card MD is Referral Physician. jmm 19:26 No provider procedures requiring assistance completed. IV discontinued, intact, jd3 bleeding controlled, No redness/swelling at site. Pressure dressing applied. Administered Medications: 17:35 Drug: Zofran 4 mg Route: IVP; Site: right antecubital; ss 18:16 Follow up: Response: No adverse reaction; Nausea is decreased em 17:37 Drug: NS 0.9% 1000 ml Route: IV; Rate: 1 bolus; Site: right antecubital; ss 19:25 Follow up: Response: No adverse reaction; IV Status: Completed infusion; IV Intake: jd3 1000ml 17:37 Drug: morphine 2 mg Route: IVP; Site: right antecubital; ss 18:17 Follow up: Response: No adverse reaction; Pain is decreased em 17:49 Not Given (Other Intervention Used; pt request half the dosage): morphine 4 mg IVP once ss 18:25 Drug: morphine 2 mg Route: IVP; Site: right antecubital; em 19:25 Follow up: Response: No adverse reaction jd3 18:27 Drug: Rocephin - (cefTRIAXone) 1 grams Route: IVPB; Infused Over: 30 mins; Site: right tw2 antecubital; 19:00 Follow up: Response: No adverse reaction; IV Status: Completed infusion jd3 18:31 Not Given (Physician Discretion): morphine 4 mg IVP once em 18:49 Drug: fentaNYL (PF) 25 mcg Route: IVP; Site: right antecubital; ss 19:25 Follow up: Response: No adverse reaction jd3 Intake: 19:25 IV: 1000ml; Total: 1000ml. jd3 Outcome: 19:01 Discharge ordered by . jmm 19:26 Discharged to home ambulatory, with family. jd3 19:26 Condition: stable 19:26 Discharge instructions given to patient, family, Instructed on discharge instructions, follow up and referral plans. medication usage, Demonstrated understanding of instructions, follow-up care, medications, Prescriptions given X 1. 19:27 Patient left the ED. jd3 Signatures: Dispatcher [employer] EDCosmo Benítez PA PA jmm Rivera, Mary mr Scotty, New, AXMINSTER RUG SETTER AXMINSTER RUG SETTER Grisel Shell, RN RN ss Renetta Kc RN RN Jailyn Wheat RN RN tw2 Jus Farley RN RN jd3
[2019-03-22 19:50] VITALS: TEMP 97.8
[2019-03-22 19:53] VITALS: BP 113/72; O2SAT 100
== END 2019-03-22 19:27 | disposition home or self-care (01) ==
LOC: ER 16:37
DX: H60.92 Unspecified otitis externa, left ear (principal); H66.92 Otitis media, unspecified, left ear; Z72.0 Tobacco use
CPT/HCPCS: 36415; 70450; 80053; 85025; 96361; 96365; 96375; 99284; J0696; J2405; J3010; J7030

== ENCOUNTER 2019-04-09 08:37 | Emergency (ER) | payer SELFPAY ==
--- OUTSIDE RECORDS SUMMARY | 2019-04-09 08:40 | XMS REPORT ---
:2000 [facility] Address [address] [place] [address] Dr. Brandt [address] [place] [id number] Care Team Providers Name Role Phone Unavailable Unavailable Unavailable Problems This patient has no known problems. Allergies, Adverse Reactions, Alerts This patient has no known allergies or adverse reactions. Medications This patient has no known medications.
[2019-04-09 10:13] LABS: Absolute Lymphocytes (CBC) 2.3 K/uL (0.7-4.9); Absolute Monocytes 0.7 K/uL (0.1-1.3); Absolute Neutrophil 5.7 K/uL (1.8-8.0); Basophils % 0.7 % (0-1.3); Eosinophils % 2.3 % (0-4.4); Hematocrit 37.6 % (36.0-45.0); Lymphocytes % 25.6 % (15.3-44.8); MPV 8.5 fL (7.6-11.3); Monocytes % 7.7 % (3.3-12.3); RBC Red Blood Cell Count 4.52 M/uL (3.86-4.86)
[2019-04-09 11:08] LABS: Potassium 4.1 mmol/L (3.5-5.1)
[2019-04-09 11:25] LABS: Urine Blood NEGATIVE (NEG); Urine Glucose NEGATIVE (NEG); Urine Protein NEGATIVE (NEG); Urine Specific Gravity >1.030 (1.005-1.030)
--- NOTE | 2019-04-09 12:04 | RAD REPORT ---
EXAM DESCRIPTION: US - Transvaginal OB - 04/09/2019 11:53 am CLINICAL HISTORY: with abdominal pain COMPARISON: None. FINDINGS: The uterus 9 x 4 x 5 centimeters. A gestational sac is present within the endometrium twyla suring 8 x 6 x 10 millimeters. Within this is a yolk sac. A pole is not seen 1.8 centimeter right ovarian cyst. Right ovary is normal size. Left ovary is not seen An adnexal mass is not noted. No significant free fluid is seen. IMPRESSION: Intrauterine with an estimated gestational age 5 weeks 3 days JOVITA 12/07/2019. This may be a viable in which the pole is not yet seen secondary to the early gestati on. This should be correlated clinically and with serial beta HCG levels. Follow up ultrasound in 1 w [place] recommended
--- NOTE | 2019-04-09 12:31 | ER ---
Nurse's Notes [facility] Name: Ariella Mei Age: 19 yrs Sex: Female : 2000 Arrival Date: 04/09/2019 Time: 08:43 Bed 15 Private MD: Diagnosis: Urinary tract infection, site not specified Presentation: 04/09 09:17 Presenting complaint: Patient states: intermittent lower pelvic pain, fever, denies iw pain with urination, UPT done at [facility], is approx 5 weeks , also has cough, runny nose, denies vaginal bleeding. Transition of care: patient was not received from another setting of care. Onset of symptoms was April 09, 2019. Risk Assessment: Do you want to hurt yourself or someone else? Patient reports no desire to harm self or others. Initial Sepsis Screen: Does the patient meet any 2 criteria? No. Patient's initial sepsis screen is negative. Does the patient have a suspected source of infection? No. Patient's initial sepsis screen is negative. Care prior to arrival: None. 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 - Social history:: Smoking status: Patient/guardian denies using tobacco. - Ebola Screening: : Patient negative for fever greater than or equal to 101.5 degrees Fahrenheit, and additional compatible Ebola Virus Disease symptoms Patient denies exposure to infectious person Patient denies travel to an Ebola-affected area in the 21 days before illness onset No symptoms or risks identified at this time. Screenin:25 Abuse screen: Denies threats or abuse. Nutritional screening: No deficits noted. rb1 Tuberculosis screening: No symptoms or risk factors identified. Fall Risk None identified. Assessment: 09:25 General: Appears in no apparent distress. comfortable, Behavior is calm, cooperative, rb1 Reports fever for. Pain: Complains of pain in suprapubic area Pain currently is 5 out of 10 on a pain scale. Quality of pain is described as crampy. Neuro: Level of Consciousness is awake, alert, obeys commands, Oriented to person, place, time, situation. Cardiovascular: Capillary refill < 3 seconds is brisk in bilateral fingers. Respiratory: Airway is patent Respiratory effort is even, unlabored, Respiratory pattern is regular, symmetrical. GI: Bowel sounds present X 4 quads. Abd is soft X 4 quads. : Denies burning with urination. : Denies vaginal bleeding. Derm: Skin is pink, warm \T\ dry. Musculoskeletal: No deficits noted. 09:25 Respiratory: Reports cough that is. EENT: Reports nasal discharge that is watery. rb1 10:15 Reassessment: Patient appears in no apparent distress at this time. No changes from rb1 previously documented assessment. Family at bedside. 11:00 Reassessment: Left a voicemail for [facility] letting them know that Dr. Barnett gave the ok to rb1 do the US now. 11:15 Reassessment: Patient appears in no apparent distress at this time. Patient and/or rb1 family updated on plan of care and expected duration. Pain level reassessed. Patient is alert, oriented x 3, equal unlabored respirations, skin warm/dry/pink. Mother at bedside. Patient denies pain at this time. 11:20 Reassessment: Called US again to see if they are coming for the pt. They will be rb1 bringing a pt. back and will take this pt. at that time. 11:28 Reassessment: Pt. is going to US. rb1 12:15 Reassessment: Patient appears in no apparent distress at this time. No changes from rb1 previously documented assessment. Informed Dr. Barnett that the pt. needs to be at work at 1500 and is wanting to leave as soon as possible. 12:55 Reassessment: Patient appears in no apparent distress at this time. Patient and/or rb1 family updated on plan of care and expected duration. Pain level reassessed. Patient is alert, oriented x 3, equal unlabored respirations, skin warm/dry/pink. Patient denies pain at this time. Vital Signs: 09:19 BP 137 / 69; Pulse 81; Resp 16; Pulse Ox 100% on R/A; Weight 84.82 kg; Height 5 ft. 6 iw in. (167.64 cm); Pain 0/10; 10:15 BP 114 / 76; Pulse 78; Resp 16; Temp 98.1(TE); Pulse Ox 98% on R/A; Pain 4/10; rb1 11:03 BP 115 / 72; Pulse 80; Resp 17; Temp 97.8(TE); Pulse Ox 99% on R/A; Pain 0/10; rb1 11:28 rb1 12:00 BP 103 / 88; Pulse 83; Resp 16; Temp 97.9(TE); Pulse Ox 100% on R/A; Pain 0/10; rb1 12:55 BP 103 / 88; Pulse 78; Resp 16; Temp 98.0(TE); Pulse Ox 100% ; Pain 0/10; rb1 09:19 Body Mass Index 30.18 (84.82 kg, 167.64 cm) iw 11:28 pt. went to US. rb1 ED Course: 08:43 Patient arrived in ED. mr 09:19 Triage completed. iw 09:20 Arm band placed on. iw 09:25 Patient has correct armband on for positive identification. rb1 09:31 Rickey Barnett MD is Attending Physician. tw4 09:32 Cathy Casper, RN is Primary Nurse. rb1 09:55 Inserted saline lock: 22 gauge in right antecubital area, using aseptic technique. rb1 Blood collected. 11:52 Ultrasound completed. Patient tolerated well. Patient moved back from ultrasound. aa4 11:54 Transvaginal OB In Process Unspecified. EDMS 12:56 No provider procedures requiring assistance completed. IV discontinued, intact, rb1 bleeding controlled, No redness/swelling at site. Pressure dressing applied. Administered Medications: No medications were administered Outcome: 12:30 Discharge ordered by . tw4 12:56 Discharged to home ambulatory, with family. rb1 12:56 Condition: stable 12:56 Discharge instructions given to patient, Instructed on discharge instructions, follow up and referral plans. medication usage, Demonstrated understanding of instructions, follow-up care, medications, Prescriptions given X 1. 12:57 Patient left the ED. rb1 Signatures: Dispatcher [employer] [facility] Barb Scanlon Mima Sinha RN RN iw Marcela Lofton aa4 Cathy Casper, NEY RN rb1 Rickey Barnett MD MD tw4 Corrections: (The following items were deleted from the chart) 11:28 11:00 Reassessment: Pt. is going to US. rb1 rb1
--- NOTE | 2019-04-09 12:31 | EDPHYS ---
Physician Documentation [facility] Name: Ariella Mei Age: 19 yrs Sex: Female : 2000 Arrival Date: 04/09/2019 Time: 08:43 Bed 15 Private MD: ED Physician Rickey Barnett HPI: 04/09 13:54 This 19 yrs old Female presents to ER via Ambulatory with complaints of 6wks tw4 , Abdominal Cramping, Cough. 13:54 The patient presents to the emergency department with abdominal pain, of the suprapubic tw4 area. The estimated gestational age is 8 weeks. course: care: none. Previous pregnancies: the patient has never been . The patient has not experienced similar symptoms in the past. 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 - Social history:: Smoking status: Patient/guardian denies using tobacco. - Ebola Screening: : Patient negative for fever greater than or equal to 101.5 degrees Fahrenheit, and additional compatible Ebola Virus Disease symptoms Patient denies exposure to infectious person Patient denies travel to an Ebola-affected area in the 21 days before illness onset No symptoms or risks identified at this time. ROS: 13:54 Constitutional: Negative for fever, chills, and weight loss, Eyes: Negative for injury, tw4 pain, redness, and discharge, Cardiovascular: Negative for chest pain, palpitations, and edema, Respiratory: Negative for shortness of breath, cough, wheezing, and pleuritic chest pain, Back: Negative for injury and pain, MS/Extremity: Negative for injury and deformity, Skin: Negative for injury, rash, and discoloration. 13:54 : Negative for injury, bleeding, discharge, and swelling. 13:54 Abdomen/GI: Positive for abdominal pain, Negative for nausea and vomiting. 13:54 : Exam: 13:54 Constitutional: This is a well developed, well nourished patient who is awake, alert, tw4 and in no acute distress. Head/Face: Normocephalic, atraumatic. Chest/axilla: Normal chest wall appearance and motion. Nontender with no deformity. No lesions are appreciated. Cardiovascular: Regular rate and rhythm with a normal S1 and S2. No gallops, murmurs, or rubs. Normal PMI, no JVD. No pulse deficits. Respiratory: Lungs have equal breath sounds bilaterally, clear to auscultation and percussion. No rales, rhonchi or wheezes noted. No increased work of breathing, no retractions or nasal flaring. Back: No spinal tenderness. No costovertebral tenderness. Full range of motion. MS/ Extremity: Pulses equal, no cyanosis. Neurovascular intact. Full, normal range of motion. Neuro: Awake and alert, GCS 15, oriented to person, place, time, and situation. Cranial nerves II-XII grossly intact. Motor strength 5/5 in all extremities. Sensory grossly intact. Cerebellar exam normal. Normal gait. 13:54 Abdomen/GI: Inspection: abdomen appears normal, Bowel sounds: normal, Palpation: mild abdominal tenderness, in the epigastric area. Vital Signs: 09:19 BP 137 / 69; Pulse 81; Resp 16; Pulse Ox 100% on R/A; Weight 84.82 kg; Height 5 ft. 6 iw in. (167.64 cm); Pain 0/10; 10:15 BP 114 / 76; Pulse 78; Resp 16; Temp 98.1(TE); Pulse Ox 98% on R/A; Pain 4/10; rb1 11:03 BP 115 / 72; Pulse 80; Resp 17; Temp 97.8(TE); Pulse Ox 99% on R/A; Pain 0/10; rb1 11:28 rb1 12:00 BP 103 / 88; Pulse 83; Resp 16; Temp 97.9(TE); Pulse Ox 100% on R/A; Pain 0/10; rb1 12:55 BP 103 / 88; Pulse 78; Resp 16; Temp 98.0(TE); Pulse Ox 100% ; Pain 0/10; rb1 09:19 Body Mass Index 30.18 (84.82 kg, 167.64 cm) iw 11:28 pt. went to [facility]. rb1 MDM: 09:31 Patient medically screened. tw4 13:54 Data reviewed: vital signs, nurses notes. Counseling: I had a detailed discussion with [facility] the patient and/or guardian regarding: the historical points, exam findings, and any diagnostic results supporting the discharge/admit diagnosis. Special discussion: I discussed with the patient/guardian in detail that at this point there is no indication for admission to the hospital. It is understood, however, that if the symptoms persist or worsen the patient needs to return immediately for re-evaluation. 04/09 09:32 Order name: Quantitative Hcg; Complete Time: 12:29 [facility] 04/09 09:32 Order name: Abo/rh Typing; Complete Time: 12:29 [facility] 04/09 09:32 Order name: Basic Metabolic Panel; Complete Time: 12:29 [facility] 04/09 09:32 Order name: CBC with Diff; Complete Time: 12:29 [facility] 04/09 10:51 Order name: Urine Dipstick--Ancillary (enter results); Complete Time: 12:29 04/09 10:51 Order name: Urine --Ancillary (enter results); Complete Time: 12:29 04/09 09:32 Order name: IV Saline Lock; Complete Time: 10:33 [facility] 04/09 09:32 Order name: Labs collected and sent; Complete Time: 10:33 [facility] 04/09 09:53 Order name: Transvaginal OB; Complete Time: 12:29 [facility] 04/09 10:54 Order name: Urine Culture rb1 04/09 10:54 Order name: Urine Microscopic Only rb1 04/09 12:30 Order name: ABO/RH no charge [facility] 04/09 09:32 Order name: NPO; Complete Time: 10:33 [facility] 04/09 09:32 Order name: Urine Dipstick-Ancillary (obtain specimen); Complete Time: 10:56 tw4 Administered Medications: No medications were administered Disposition: 04/09/19 12:30 Discharged to Home. Impression: Urinary tract infection, site not specified. - Condition is Stable. - Discharge Instructions: Urinary Tract Infection, Adult, and Urinary Tract Infection. - Prescriptions for Macrobid 100 mg Oral Capsule - take 1 capsule by ORAL route every 12 hours for 10 days; 20 capsule. - Medication Reconciliation Form, Thank You Letter, Antibiotic Education, Prescription Opioid Use form. - Follow up: Private Physician; When: Upon discharge from the Emergency Department; Reason: If symptoms return, Recheck today's complaints, Continuance of care. - Problem is new. - Symptoms have improved. Signatures: Dispatcher [employer] [facility] Mima Sinha, RN RN iw Cathy Casper, RN RN rb1 Rickey Barnett MD MD tw4 Corrections: (The following items were deleted from the chart) 09:50 09:36 OB Complete+US.RAD.BRZ ordered. [facility] EDNC 09:53 09:50 OB Limited ordered. [facility] 12:57 12:30 04/09/2019 12:30 Discharged to Home. Impression: Urinary tract infection, site rb1 not specified. Condition is Stable. Forms are Medication Reconciliation Form, Thank You Letter, Antibiotic Education, Prescription Opioid Use. Follow up: Private Physician; When: Upon discharge from the Emergency Department; Reason: If symptoms return, Recheck today's complaints, Continuance of care. Problem is new. Symptoms have improved. tw4
[2019-04-09 13:07] VITALS: BP 103/88; O2SAT 100
[2019-04-09 13:08] VITALS: TEMP 98
[2019-04-09 13:27] LABS: Urine Bacteria 20-50 /HPF (<20); Urine Culture Reflex Order NOT NEEDED; Urine RBC <5 /HPF (NONE SEEN)
== END 2019-04-09 12:57 | disposition home or self-care (01) ==
LOC: ER 08:37
DX: O23.41 Unspecified infection of urinary tract in pregnancy, first trimester (principal); Z3A.08 8 weeks gestation of pregnancy
CPT/HCPCS: 36415; 76817; 80048; 81003; 81015; 81025; 84702; 85025; 86900; 86901; 87086; 87088; 99284

== ENCOUNTER 2019-04-11 13:45 | Emergency (ER) | payer SELFPAY ==
--- OUTSIDE RECORDS SUMMARY | 2019-04-11 13:57 | XMS REPORT ---
:2000 [facility] Address [address] [place] [address] Dr. Brandt [address] [place] [id number] Care Team Providers Name Role Phone Unavailable Unavailable Unavailable Problems This patient has no known problems. Allergies, Adverse Reactions, Alerts This patient has no known allergies or adverse reactions. Medications This patient has no known medications.
[2019-04-11 14:36] LABS: Urine Blood NEGATIVE (NEG); Urine Glucose NEGATIVE (NEG); Urine Protein NEGATIVE (NEG); Urine Specific Gravity 1.015 (1.005-1.030)
[2019-04-11 15:11] LABS: Absolute Lymphocytes (CBC) 2.5 K/uL (0.7-4.9); Absolute Monocytes 0.8 K/uL (0.1-1.3); Absolute Neutrophil 6.6 K/uL (1.8-8.0); Basophils % 0.6 % (0-1.3); Hematocrit 36.7 % (36.0-45.0); Lymphocytes % 24.9 % (15.3-44.8); MPV 8.5 fL (7.6-11.3); Monocytes % 7.6 % (3.3-12.3); RBC Red Blood Cell Count 4.44 M/uL (3.86-4.86)
[2019-04-11] MEDS ORDERED: ACETAMINOPHEN 500 MG TAB ONE (15:11)
[2019-04-11] MEDS ORDERED: NA CHLORIDE 0.9% 1,000 ML ONE (15:11)
[2019-04-11 15:25] LABS: Potassium 3.9 mmol/L (3.5-5.1)
--- NOTE | 2019-04-11 15:57 | ER ---
Nurse's Notes [facility] Name: Ariella Mei Age: 19 yrs Sex: Female : 2000 Arrival Date: 04/11/2019 Time: 13:48 Bed 26 Private MD: Diagnosis: Lower abdominal pain, unspecified Presentation: 04/11 13:55 Presenting complaint: Patient states: dx 3 days ago here, c/o abdominal pain, ch "unnormal pain" super low in my stomach, fevers all day long, took tylenol at 0600. fever t max 102.4vomiting and productive cough as well. dry cough for 3 months. Transition of care: patient was not received from another setting of care. Onset of symptoms was April 04, 2019. Risk Assessment: Do you want to hurt yourself or someone else? Patient reports no desire to harm self or others. Initial Sepsis Screen: Does the patient meet any 2 criteria? No. Patient's initial sepsis screen is negative. Does the patient have a suspected source of infection? No. Patient's initial sepsis screen is negative. Care prior to arrival: None. 13:55 Method Of Arrival: Ambulatory 13:55 Acuity: JEFF 3 Triage Assessment: 13:57 General: Appears in no apparent distress. comfortable, Behavior is calm, cooperative, ch appropriate for age. Pain: Complains of pain in abdomen and pelvis Pain currently is 6 out of 10 on a pain scale. GI: Reports lower abdominal pain, nausea, vomiting. [employer] WORKER: 13:57 LMP 02/27/2019 Historical: - Allergies: 13:57 NKDA; - Home Meds: 13:57 None [Active]; - PMHx: 13:57 Asthma; bleeding disorder; Von Willebrand disease; - PSHx: 13:57 Knee surgery; bone extraction- bone tumor; - Immunization history:: Adult Immunizations up to date. - Social history:: Smoking status: Patient/guardian denies using tobacco, Patient/guardian denies using alcohol, street drugs. - Ebola Screening: : Patient negative for fever greater than or equal to 101.5 degrees Fahrenheit, and additional compatible Ebola Virus Disease symptoms Patient denies exposure to infectious person Patient denies travel to an Ebola-affected area in the 21 days before illness onset No symptoms or risks identified at this time. Screenin:18 Abuse screen: Denies threats or abuse. Denies injuries from another. Nutritional ca1 screening: No deficits noted. Tuberculosis screening: No symptoms or risk factors identified. Fall Risk None identified. Assessment: 14:18 General: Appears in no apparent distress. comfortable, Behavior is calm, cooperative, ca1 appropriate for age. General: Reports fever for 12-24 hours. Pain: Complains of pain in suprapubic area Pain does not radiate. Pain currently is 6 out of 10 on a pain scale. at worst was 10 out of 10 on a pain scale. Quality of pain is described as crampy, stabbing, Pain began 2-3 days ago. Is intermittent. Neuro: Level of Consciousness is awake, alert, obeys commands, Oriented to person, place, time, situation. Cardiovascular: Heart tones S1 S2 present Capillary refill < 3 seconds Patient's skin is warm and dry. Respiratory: Airway is patent Respiratory effort is even, unlabored, Respiratory pattern is regular, symmetrical, Breath sounds are clear bilaterally. Respiratory: Reports cough that is productive. GI: Abdomen is round non-distended, Bowel sounds present X 4 quads. Abd is soft X 4 quads Abdomen is tender to palpation in suprapubic area, right lower quadrant and left lower quadrant Reports nausea, vomiting. : No deficits noted. No signs and/or symptoms were reported regarding the genitourinary system. EENT: Reports nasal congestion since for months now. Used to take Zyrtec prior to knowledge of . Derm: Skin is intact, is healthy with good turgor, Skin is pink, warm \\T\\ dry. Musculoskeletal: Circulation, motion, and sensation intact. Capillary refill < 3 seconds, Range of motion: intact in all extremities. 15:13 Reassessment: Patient appears in no apparent distress at this time. Patient and/or ca1 family updated on plan of care and expected duration. Pain level reassessed. Patient is alert, oriented x 3, equal unlabored respirations, skin warm/dry/pink. 16:29 Reassessment: Patient appears in no apparent distress at this time. Patient and/or em family updated on plan of care and expected duration. Pain level reassessed. Patient is alert, oriented x 3, equal unlabored respirations, skin warm/dry/pink. Vital Signs: 13:57 BP 138 / 71; Pulse 88; Resp 16; Temp 97.9; Pulse Ox 98% ; Weight 81.65 kg; Height 5 ft. ch 6 in. (167.64 cm); Pain 5/10; 15:13 BP 99 / 65; Pulse 80; Resp 17 S; Pulse Ox 100% on R/A; ca1 16:29 BP 108 / 66; Pulse 82; Resp 18; Pulse Ox 100% on R/A; em 13:57 Body Mass Index 29.05 (81.65 kg, 167.64 cm) ED Course: 13:48 Patient arrived in ED. mr 13:57 Triage completed. ch 13:57 Arm band placed on left wrist. Patient placed in an exam room, on a stretcher. ch 14:08 Frances Graf, NEY is Primary Nurse. ca1 14:18 Tony Espinosa PA is PHCP. jr8 14:18 Patient has correct armband on for positive identification. Placed in gown. Bed in low ca1 position. Call light in reach. Side rails up X 1. Pulse ox on. NIBP on. Warm blanket given. 14:18 No provider procedures requiring assistance completed. ca1 14:19 Dallas Yoder MD is Attending Physician. jr8 14:57 Initial lab(s) drawn, by me, sent to lab. Inserted saline lock: 20 gauge in right lt1 antecubital area, using aseptic technique. Missed attempt(s): 22 gauge in left antecubital area. 16:28 IV discontinued, intact, bleeding controlled, No redness/swelling at site. Pressure em dressing applied. Administered Medications: 14:57 Drug: NS 0.9% 1000 ml Route: IV; Rate: 1000 ml; Site: right antecubital; ca1 16:29 Follow up: IV Status: Completed infusion; IV Intake: 1000ml em 14:57 Drug: Tylenol 1000 mg Route: PO; ca1 16:30 Follow up: Response: No adverse reaction em Intake: 16:29 IV: 1000ml; Total: 1000ml. em Outcome: 15:56 Discharge ordered by . jr8 16:28 Discharged to home ambulatory, with family. em 16:28 Condition: good 16:28 Discharge instructions given to patient, family, Instructed on discharge instructions, follow up and referral plans. Demonstrated understanding of instructions, follow-up care. 16:30 Patient left the ED. em Signatures: Connie Pena, RN RN Scanlon, [facility] mr [place], [place], INFORMATION AND REFERRAL DIRECTOR INFORMATION AND REFERRAL DIRECTOR em Tony Espinosa, ABHISHEK WEISS jr8 Frances Graf RN RN [facility] Radha Vaca lt1
--- NOTE | 2019-04-11 15:57 | EDPHYS ---
Physician Documentation [facility] Name: Ariella Mei Age: 19 yrs Sex: Female : 2000 Arrival Date: 04/11/2019 Time: 13:48 Bed 26 Private MD: ED Physician Dallas Yoder HPI: 04/11 15:25 This 19 yrs old Female presents to ER via Ambulatory with complaints of jr8 Abdominal Pain, 6 wks . 15:25 The patient presents with abdominal pain in the lower abdomen. Onset: The jr8 symptoms/episode began/occurred gradually, 3 day(s) ago. The symptoms do not radiate. Associated signs and symptoms: none. The symptoms are described as burning, dull. Modifying factors: The symptoms are alleviated by nothing, the symptoms are aggravated by nothing. Severity of pain: At its worst the pain was mild in the emergency department the pain is unchanged. The patient has not experienced similar symptoms in the past. The patient has been recently seen by a physician:. Patient stated that she is about 6 weeks . Stated that she was seen a few days ago for similar symptoms. Has not been able to get antibiotics yet due to the pharmacy not having it on hand. Was diagnosed with UTI. Ultrasound completed along with blood work. Early IUP noted without any other acute finding. Stated that she has also had cough for past three months and has not been able to get rid of it . 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 - Social history:: Smoking status: Patient/guardian denies using tobacco, Patient/guardian denies using alcohol, street drugs. - Ebola Screening: : Patient negative for fever greater than or equal to 101.5 degrees Fahrenheit, and additional compatible Ebola Virus Disease symptoms Patient denies exposure to infectious person Patient denies travel to an Ebola-affected area in the 21 days before illness onset No symptoms or risks identified at this time. ROS: 15:25 Eyes: Negative for injury, pain, redness, and discharge, ENT: Negative for injury, jr8 pain, and discharge, Neck: Negative for injury, pain, and swelling, Cardiovascular: Negative for chest pain, palpitations, and edema, Abdomen/GI: Negative for abdominal pain, nausea, vomiting, diarrhea, and constipation, Back: Negative for injury and pain, MS/Extremity: Negative for injury and deformity, Skin: Negative for injury, rash, and discoloration, Neuro: Negative for headache, weakness, numbness, tingling, and seizure. 15:25 Respiratory: Positive for cough, Negative for dyspnea on exertion, shortness of breath, sputum production, wheezing. 15:25 : Positive for pelvic pain, Negative for vaginal bleeding, vaginal discharge, vaginal itching. Exam: 15:25 Eyes: Pupils equal round and reactive to light, extra-ocular motions intact. Lids and jr8 lashes normal. Conjunctiva and sclera are non-icteric and not injected. Cornea within normal limits. Periorbital areas with no swelling, redness, or edema. ENT: Nares patent. No nasal discharge, no septal abnormalities noted. Tympanic membranes are normal and external auditory canals are clear. Oropharynx with no redness, swelling, or masses, exudates, or evidence of obstruction, uvula midline. Mucous membranes moist. Neck: Trachea midline, no thyromegaly or masses palpated, and no cervical lymphadenopathy. Supple, full range of motion without nuchal rigidity, or vertebral point tenderness. No Meningismus. Cardiovascular: Regular rate and rhythm with a normal S1 and S2. No gallops, murmurs, or rubs. Normal PMI, no JVD. No pulse deficits. Respiratory: Lungs have equal breath sounds bilaterally, clear to auscultation and percussion. No rales, rhonchi or wheezes noted. No increased work of breathing, no retractions or nasal flaring. Back: No spinal tenderness. No costovertebral tenderness. Full range of motion. Skin: Warm, dry with normal turgor. Normal color with no rashes, no lesions, and no evidence of cellulitis. MS/ Extremity: Pulses equal, no cyanosis. Neurovascular intact. Full, normal range of motion. Neuro: Awake and alert, GCS 15, oriented to person, place, time, and situation. Cranial nerves II-XII grossly intact. Motor strength 5/5 in all extremities. Sensory grossly intact. Cerebellar exam normal. Normal gait. 15:25 Abdomen/GI: Inspection: abdomen appears normal, Bowel sounds: active, all quadrants, Palpation: soft, in all quadrants, mild abdominal tenderness, in the suprapubic area, mass, is not appreciated, rebound tenderness, is not appreciated, voluntary guarding, is not appreciated, involuntary guarding, is not appreciated, no appreciated organomegaly, Indicators: McBurney's point is not tender, Rivas's sign is negative, Rovsing's sign is negative, Liver: tenderness, is not appreciated. Vital Signs: 13:57 BP 138 / 71; Pulse 88; Resp 16; Temp 97.9; Pulse Ox 98% ; Weight 81.65 kg; Height 5 ft. ch 6 in. (167.64 cm); Pain 5/10; 15:13 BP 99 / 65; Pulse 80; Resp 17 S; Pulse Ox 100% on R/A; ca1 16:29 BP 108 / 66; Pulse 82; Resp 18; Pulse Ox 100% on R/A; em 13:57 Body Mass Index 29.05 (81.65 kg, 167.64 cm) ch MDM: 14:20 Patient medically screened. tez 15:54 Data reviewed: vital signs, nurses notes, old medical records, lab test result(s), and jr8 as a result, I will discharge patient. Data interpreted: Pulse oximetry: on room air is 100 %. Interpretation: normal. Counseling: I had a detailed discussion with the patient and/or guardian regarding: the historical points, exam findings, and any diagnostic results supporting the discharge/admit diagnosis, lab results, radiology results, the need for outpatient follow up, an OB/Gyne specialist, to return to the emergency department if symptoms worsen or persist or if there are any questions or concerns that arise at home. Response to treatment: the patient's symptoms have resolved after treatment, patient is well hydrated. 15:56 Differential diagnosis: appendicitis, diverticulitis, Ectopic , non-specific jr8 abd pain, Ovarian Torsion, Pyelonephritis, Tubal Ovarian Abcess, Ureterolithiasis, urinary tract infection, broad ligament pain. 04/11 14:31 Order name: Urine Dipstick--Ancillary (enter results); Complete Time: 14:39 ms 04/11 14:31 Order name: Urine --Ancillary (enter results); Complete Time: 14:39 ms 04/11 14:37 Order name: CBC with Diff; Complete Time: 15:17 jr8 04/11 14:37 Order name: Basic Metabolic Panel; Complete Time: 15:28 jr8 04/11 14:37 Order name: IV; Complete Time: 14:53 jr8 Administered Medications: 14:57 Drug: NS 0.9% 1000 ml Route: IV; Rate: 1000 ml; Site: right antecubital; ca1 16:29 Follow up: IV Status: Completed infusion; IV Intake: 1000ml em 14:57 Drug: Tylenol 1000 mg Route: PO; ca1 16:30 Follow up: Response: No adverse reaction em Disposition: 04/11/19 15:56 Discharged to Home. Impression: Lower abdominal pain, unspecified. - Condition is Stable. - Discharge Instructions: Abdominal Pain, Adult, Abdominal Pain During . - Medication Reconciliation Form, Thank You Letter, Antibiotic Education, Prescription Opioid Use form. - Follow up: Private Physician; When: 2 - 3 days; Reason: Recheck today's complaints, Continuance of care, Re-evaluation by your physician. - Problem is new. - Symptoms have improved. Addendum: 04/15/2019 09:15 Co-signature as Attending Physician, Dallas Yoder MD I agree with the assessment and c montanez plan of care. Signatures: Dispatcher [employer] Connie Mendiola, RN Dallas Johnson ch, MD MD cha Munoz, Edgar, APPLICATION SERVICES MANAGER APPLICATION SERVICES MANAGER em Tony Espinosa, PA PA jr8 Frances Graf RN RN ca1 Corrections: (The following items were deleted from the chart) 04/11 16:30 15:56 04/11/2019 15:56 Discharged to Home. Impression: Lower abdominal pain, em unspecified. Condition is Stable. Forms are Medication Reconciliation Form, Thank You Letter, Antibiotic Education, Prescription Opioid Use. Follow up: Private Physician; When: 2 - 3 days; Reason: Recheck today's complaints, Continuance of care, Re-evaluation by your physician. Problem is new. Symptoms have improved. jr8
[2019-04-11 17:17] VITALS: TEMP 97.9
[2019-04-11 17:19] VITALS: O2SAT 100
[2019-04-11 17:20] VITALS: BP 108/66
== END 2019-04-11 16:30 | disposition home or self-care (01) ==
LOC: ER 13:45
DX: O26.891 Other specified pregnancy related conditions, first trimester (principal); R10.9 Unspecified abdominal pain; O99.511 Diseases of the respiratory system complicating pregnancy, first trimester; J45.909 Unspecified asthma, uncomplicated; Z3A.01 Less than 8 weeks gestation of pregnancy
CPT/HCPCS: 36415; 80048; 81003; 81025; 85025; 96360; 96361; 99284; J7030

== ENCOUNTER 2019-05-17 12:34 | Emergency (ER) | payer OTHER ==
--- OUTSIDE RECORDS SUMMARY | 2019-05-17 12:37 | XMS REPORT ---
:2000 [facility] Address [address] [place] [address] Care Team Providers Name Role Phone Unavailable Unavailable Unavailable Payers Payer Name Policy Type Policy Number Effective Date Expiration Date Problems This patient has no known problems. Allergies, Adverse Reactions, Alerts Allergy Allergy Status Severity Reaction(s) Onset Inactive Treating Comments Name Type Date Date Clinician No Known DA Active U 2019-04 Allergies - 00:00:0 0 No Known DA Active U 2016-03 Allergies - 00:00:0 0 Medications This patient has no known medications. Results Test Description Test Time Test Comments Text Results Atomic Results Result Comments GLUBED 2019-05-01 14:27:00 Test Item Value Reference Range Comments GLUBED (test code=GLUBED) 79 mg/dL 65-110 PROTHROMBIN [id number] 14:20:00 Test Item Value Reference Range Comments PROTHROMBIN TIME PATIENT (test code=PTP) 12.6 secs 10.4-12.4 THROMBOPLASTIN TIME [id number] 14:20:00 Test Item Value Reference Range Comments THROMBOPLASTIN TIME PARTIAL (test code=PTT) 29.8 secs 22-38 COMPREHENSIVE METABOLIC [id number] 14:09:00 Test Item Value Reference Range Comments SODIUM (test code=NA) 135 mEq/L 135-145 POTASSIUM (test code=K) 4.1 mEq/L 3.5-5.0 CHLORIDE (test code=CL) 102 mEq/L 100-115 CARBON DIOXIDE (test code=CO2) 25 mEq/L 22-31 ANION GAP (test code=GAP) 11.70 10-20 GLUCOSE (test code=GLU) 86 mg/dL 65-110 BLOOD UREA NITROGEN (test code=BUN) 9 mg/dL 7-18 GLOMERULAR FILTRATION RATE (test code=GFR) 106 ml/min >60 CREATININE (test code=CREAT) 0.7 mg/dL 0.5-1.0 TOTAL PROTEIN (test code=PROT) 7.3 gm/dL 6.3-8.2 ALBUMIN (test code=ALB) 3.5 gm/dL 3.4-4.8 CALCIUM (test code=CA) 8.8 mg/dL 8.4-10.2 BILIRUBIN TOTAL (test code=BILT) 0.2 mg/dL 0.2-1.0 SGOT/AST (test code=AST) 12 units/L 15-37 SGPT/ALT (test code=ALT) 15 units/L 12-78 ALKALINE PHOSPHATASE TOTAL (test code=ALKP) 79 units/L 46-116 CREATINE KINASE (CK)2019-05-01 14:09:00 Test Item Value Reference Range Comments CREATINE KINASE (CK) (test code=CK) 50 Units/L 26-192 [id number] 14:09:00 Test Item Value Reference Range Comments TROPONIN-I (test code=TROPI) <0.017 ng/mL <0.056 UA RFLX MICR CULT IF [id number] 13:52:00 Test Item Value Reference Range Comments UA COLOR (test code=COLU) YELLOW YELLOW UA APPEARANCE (test code=APPU) Slightly-Cloudy CLEAR UA GLUCOSE DIPSTICK (test code=DGLUU) NEGATIVE NEG UA BILIRUBIN DIPSTICK (test code=BILU) NEGATIVE NEG UA KETONE DIPSTICK (test code=KETU) NEGATIVE NEG UA SPECIFIC GRAVITY (test code=SGU) 1.012 1.001-1.035 UA BLOOD DIPSTICK (test code=MARY) NEG NEG UA PH DIPSTICK (test code=PREMA) 8.0 5-9 UA PROTEIN DIPSTICK (test code=PROU) NEGATIVE NEG UA UROBILINIOGEN DIPSTICK (test code=URO) NEGATIVE mg/dL NEG UA NITRITE DIPSTICK (test code=ANDREZ) NEG NEG UA LEUKOCYTE ESTERASE DIPSTICK (test NEG NEG code=LEUU) UA WBC (test code=WBCU) 0-2 #/hpf NONE SEEN UA RBC (test code=RBCU) 0-2 #/hpf NONE SEEN UA EPITHELIAL CELLS (test code=EPIU) RARE #/HPF RARE-FEW UA MUCUS (test code=MUCU) RARE NONE SEEN Indication for culture: Dysuria/FrequencyCBC W/AUTO [id number] 13:46:00 Test Item Value Reference Range Comments WHITE BLOOD CELL (test code=WBC) 8.8 K/mm3 6.6-12.1 RED BLOOD CELL (test code=RBC) 3.99 M/mm3 3.45-5.01 HEMOGLOBIN (test code=HGB) 11.2 g/dL 10.7-13.9 HEMATOCRIT (test code=HCT) 34.3 % 32.1-42.1 MEAN CELL VOLUME (test code=MCV) 86 fL 84.1-94.8 MEAN CELL HGB (test code=MCH) 28.1 pg 27-35 MEAN CELL HGB CONCETRATION (test code=MCHC) 32.7 gm/dL 32.2-34.1 RED CELL DISTRIBUTION WIDTH (test code=RDW) 17.3 % 12.4-16.5 PLATELET COUNT (test code=PLT) 329 K/mm3 133-385 IMMATURE PLATELET FRACTION (test code=IPF) 0.0 % 0.0-10.8 MEAN PLATELET VOLUME (test code=MPV) 10.5 fl 9.1-12.7 NEUTROPHIL % (test code=NT%) 61.7 % 56.5-79.4 LYMPHOCYTE % (test code=LY%) 27.5 % 14.3-34.3 MONOCYTE % (test code=MO%) 7.5 % 5.1-10.4 EOSINOPHIL % (test code=EO%) 2.6 % 0.1-3.0 BASOPHIL % (test code=BA%) 0.5 % 0.1-1.0 NEUTROPHIL # (test code=NT#) 5.4 K/mm3 LYMPHOCYTE # (test code=LY#) 2.4 K/mm3 MONOCYTE # (test code=MO#) 0.7 K/mm3 EOSINOPHIL # (test code=EO#) 0.23 K/mm3 BASOPHIL # (test code=BA#) 0.0 K/mm3 RBC MORPHOLOGY REQUIRED (test code=RBCM) NORMAL NORMAL PLATELET MORPHOLOGY REQUIRED (test code=PLTMR) NORMAL NORMAL - CT HEAD/BRAIN W/O [id number] 13:33:00 Patient Name: YUMIKO TERAN Unit No: [id number] EXAMS: CPT CODE : [id number] CT HEAD/BRAIN W/O CONT 57755 CT HEAD WITHOUT CONTRAST: 05/01/2019 COMPARISON: None CLINICAL HISTORY : fall One or more of the following dose techniques were utilized; automated exposure control, adjustment of the mA and/or kV according to patient size, and /or utilization of iterative reconstruction technique. DLP: 641.50 mGy-cm. Examination was performed on an emergency basis. The ventricles were normal in size, shape and position. No evidence of extra-axial fluid collection or midline shift. No areas of abnormal attenuation or acute intracranial hemorrhage were identified.Small amount of fluid/mucosal thickening identified in the posterior left maxillary sinus. No acute calvarial abnormality was seen. CONCLUSION: No evidence of acute intracranial abnormality. at 1333 Reported and signed by: Doe Serrano MD CC: Susan Fajardo MD; [facility] Technologist: RT [place], CT CTDI: 40.09 DLP: 641.50 Trnscrbd D/ (1403) [email or web address] [facility] NAME: YUMIKO TERAN SCRANTON Radiology Department PHYS: CANAL.02 - Susan Fajardo MD [address] : 2000 AGE: 19 SEX: F [place], [place] [address] LOC: FAidanERS PHONE #: EXAM DATE: 05/01/2019 STATUS: REG ER FAX #: [phone] RAD NO: Page 1 Signed Report 1 Patient Name: YUMIKO TERAN Unit No: [id number] EXAMS: CPT CODE: [id number] CT HEAD/BRAIN W/O CONT 11845 < Continued> Orig Print D/T: S: 05/01/2019 (1336) [facility] NAME: YUMIKO TERAN SCRANTON Radiology Department PHYS: Susan Mackey MD [address] : 1999 AGE: 19SEX: F [place], [place] [address] LOC: [email or web address].ERS PHONE #: [phone] EXAM DATE: 05/01/2019 STATUS: REG ER FAX #: [phone] RAD NO: Page 2 Signed Report 1- XR CHEST 1 [id number] 13:05:00 Patient Name: YUMIKO TERAN Unit No: [id number] EXAMS: CPT CODE: [id number] XR CHEST 1 V 55605 CHEST 1 VIEW: 05/01/2019 COMPARISON: NONE CLINICAL HISTORY: WEAKNESS FINDINGS: The cardiovascular silhouette is normal in size. No infiltrates or pulmonary edema is present. No pleural effusions are seen. IMPRESSION: No acute pulmonary disease. Electronically Signed by Doe Serrano MD on 12/2018 at 1305 Reported and signed by: Doe Serrano MD CC: Susan Fajardo MD; Marcelina Browneman Technologist: RT Nithya Trnscrbd D/ (1305)[id number] Orig Print D/T: S: 05/01/2019 (1309) [facility] NAME: YUMIKO TEARN SYBIL Radiology Department PHYS: VIOLET.Susan Leblanc MD [address] : 2000 AGE: 19 SEX: F [place], [place] [address] LOC: Miko.ERS PHONE #: [phone] EXAM DATE: 05/01/2019 STATUS: REG ER FAX #: [phone] RAD NO: Page 1 Signed Report
[2019-05-17] MEDS ORDERED: IPRATROPIUM BROM 0.5MG/2.5ML ONE (14:32)
[2019-05-17] MEDS ORDERED: ALBUTEROL 2.5 MG/3 ML NEB SOL ONE (14:32)
[2019-05-17] MEDS ORDERED: predniSONE 20 MG TAB ONE ×2 (14:39→14:41)
--- NOTE | 2019-05-17 15:21 | EDPHYS ---
Physician Documentation [facility] Name: Ariella Mei Age: 19 yrs Sex: Female : 2000 Arrival Date: 05/17/2019 Time: 12:35 Bed 30 Private MD: ED Physician Jose Miguel Mcclure HPI: 05/17 15:18 This 19 yrs old Female presents to ER via Wheelchair with complaints of gs Shortness Of Breath. 15:18 Onset: The symptoms/episode began/occurred 1 week(s) ago, and became worse and became gs persistent. Duration: The symptoms are continuous. The patient's shortness of breath is aggravated by coughing, exertion, is alleviated by inhaler. Associated signs and symptoms: Pertinent positives: non-productive cough, Pertinent negatives: chest pain, fever, hemoptysis. Severity of symptoms: At their worst the symptoms were severe in the emergency department the symptoms are unchanged. The patient has experienced similar episodes in the past, multiple times. 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 - Social history:: Smoking status: Patient/guardian denies using tobacco. - Ebola Screening: : No symptoms or risks identified at this time. ROS: 15:18 All other systems are negative. gs Exam: 15:18 Head/Face: Normocephalic, atraumatic. Eyes: Pupils equal round and reactive to light, gs extra-ocular motions intact. Lids and lashes normal. Conjunctiva and sclera are non-icteric and not injected. Cornea within normal limits. Periorbital areas with no swelling, redness, or edema. ENT: Nares patent. No nasal discharge, no septal abnormalities noted. Tympanic membranes are normal and external auditory canals are clear. Oropharynx with no redness, swelling, or masses, exudates, or evidence of obstruction, uvula midline. Mucous membranes moist. Neck: Trachea midline, no thyromegaly or masses palpated, and no cervical lymphadenopathy. Supple, full range of motion without nuchal rigidity, or vertebral point tenderness. No Meningismus. Chest/axilla: Normal chest wall appearance and motion. Nontender with no deformity. No lesions are appreciated. Cardiovascular: Regular rate and rhythm with a normal S1 and S2. No gallops, murmurs, or rubs. Normal PMI, no JVD. No pulse deficits. Abdomen/GI: Soft, non-tender, with normal bowel sounds. No distension or tympany. No guarding or rebound. No evidence of tenderness throughout. Back: No spinal tenderness. No costovertebral tenderness. Full range of motion. Skin: Warm, dry with normal turgor. Normal color with no rashes, no lesions, and no evidence of cellulitis. MS/ Extremity: Pulses equal, no cyanosis. Neurovascular intact. Full, normal range of motion. Neuro: Awake and alert, GCS 15, oriented to person, place, time, and situation. Cranial nerves II-XII grossly intact. Motor strength 5/5 in all extremities. Sensory grossly intact. Cerebellar exam normal. Normal gait. 15:18 Constitutional: The patient appears alert, awake. 15:18 Respiratory: the patient does not display signs of respiratory distress, Respirations: normal, no use of accessory muscles, no grunting, no retractions, Breath sounds: decreased breath sounds, that are moderate, are located in both bases. Vital Signs: 12:41 BP 118 / 57; Pulse 100; Resp 18 S; Temp 98.9(O); Pulse Ox 100% on R/A; Weight 84.37 kg aa5 (R); Height 5 ft. 6 in. (167.64 cm) (R); Pain 3/10; 14:00 BP 111 / 58; Pulse 87; Resp 20 S; Pulse Ox 98% on R/A; ca1 14:37 BP 102 / 63; Pulse 99; Resp 16 S; Temp 98.7(O); Pulse Ox 100% on R/A; ca1 15:31 BP 107 / 69; Pulse 99; Resp 16 S; Temp 98.5(O); Pulse Ox 100% on R/A; ca1 12:41 Body Mass Index 30.02 (84.37 kg, 167.64 cm) aa5 MDM: 14:05 Patient medically screened. 15:18 Differential diagnosis: asthma, Bronchitis reactive airway disease. Data reviewed: vital signs, nurses notes. Counseling: I had a detailed discussion with the patient and/or guardian regarding: the historical points, exam findings, and any diagnostic results supporting the discharge/admit diagnosis, the need for outpatient follow up. 05/17 13:01 Order name: EKG; Complete Time: 13:02 ms 05/17 13:01 Order name: EKG - Nurse/Tech; Complete Time: 13:01 ms Administered Medications: 14:15 Drug: Albuterol 2.5 mg Route: Inhalation; ca1 14:15 Drug: AtroVENT Aerosol 0.5 mg Route: Inhalation; ca1 14:19 Drug: predniSONE 40 mg Route: PO; ca1 15:33 Follow up: Response: No adverse reaction; Marked relief of symptoms ca1 Disposition: 05/17/19 15:20 Discharged to Home. Impression: Acute bronchitis, Acute bronchospasm. - Condition is Stable. - Discharge Instructions: Acute Bronchitis, Adult, Bronchospasm, Adult. - Prescriptions for Prednisone 20 mg Oral Tablet - take 2 tablet by ORAL route once daily for 5 days; 10 tablet. Albuterol Sulfate 90 mcg/actuation Inhalation - inhale 1-2 puff by INHALATION route every 4-6 hours; 1 Inhaler. - Medication Reconciliation Form, Thank You Letter, Antibiotic Education, Prescription Opioid Use form. - Follow up: Private Physician; When: 2 - 3 days; Reason: Re-evaluation by your physician. Signatures: Janay Tavares ms, Audri, RN RN aa5 Jose Miguel Mcclure MD MD gs Acsara, NEY Daniels RN ca1 Corrections: (The following items were deleted from the chart) 15:32 15:20 05/17/2019 15:20 Discharged to Home. Impression: Acute bronchitis; Acute ca1 bronchospasm. Condition is Stable. Forms are Medication Reconciliation Form, Thank You Letter, Antibiotic Education, Prescription Opioid Use. Follow up: Private Physician; When: 2 - 3 days; Reason: Re-evaluation by your physician. nir
--- NOTE | 2019-05-17 15:21 | ER ---
Nurse's Notes [facility] Name: Ariella Mei Age: 19 yrs Sex: Female : 2000 Arrival Date: 05/17/2019 Time: 12:35 Bed 30 Private MD: Diagnosis: Acute bronchitis;Acute bronchospasm Presentation: 05/17 12:37 Presenting complaint: Patient states: "My breathing problem started a few days ago so aa5 my doctor called me in an inhaler but I took it almost 3 hours ago and it hasn't helped". Pt states "my chest hurts when I breath". Pt reports being 11 weeks . 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 Transition of care: patient was not received from another setting of care. Onset of symptoms was April 2019. Risk Assessment: Do you want to hurt yourself or someone else? Patient reports no desire to harm self or others. Initial Sepsis Screen: Does the patient meet any 2 criteria? No. Patient's initial sepsis screen is negative. Does the patient have a suspected source of infection? No. Patient's initial sepsis screen is negative. Care prior to arrival: None. 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 - Social history:: Smoking status: Patient/guardian denies using tobacco. - Ebola Screening: : No symptoms or risks identified at this time. Screenin:10 Abuse screen: Denies threats or abuse. Denies injuries from another. Nutritional ca1 screening: No deficits noted. Tuberculosis screening: No symptoms or risk factors identified. 13:10 Fall Risk None identified. ca1 Assessment: 13:10 General: Appears in no apparent distress. comfortable, Behavior is calm, cooperative, ca1 appropriate for age. Pain: Complains of pain in chest Pain does not radiate. Pain currently is 2 out of 10 on a pain scale. Quality of pain is described as tightness Pain began 1 day ago. Is intermittent. Neuro: Level of Consciousness is awake, alert, obeys commands, Oriented to person, place, time, situation. Cardiovascular: Heart tones S1 S2 present Capillary refill < 3 seconds Patient's skin is warm and dry. Pulses are all present. Edema is absent. Rhythm is sinus rhythm. Respiratory: Reports cough that is non-productive, dry, since 6 months ago Airway is patent Respiratory effort is even, unlabored, Respiratory pattern is regular, symmetrical, Breath sounds are clear bilaterally. GI: Abdomen is round non-distended, Bowel sounds present X 4 quads. Abd is soft and non tender X 4 quads. : No deficits noted. No signs and/or symptoms were reported regarding the genitourinary system. EENT: Reports nasal congestion. Derm: Skin is intact, is healthy with good turgor, Skin is pink, warm \\T\\ dry. Musculoskeletal: Circulation, motion, and sensation intact. Capillary refill < 3 seconds, Range of motion: intact in all extremities. 14:37 Reassessment: Patient appears in no apparent distress at this time. Patient and/or ca1 family updated on plan of care and expected duration. Pain level reassessed. Patient is alert, oriented x 3, equal unlabored respirations, skin warm/dry/pink. 15:31 Reassessment: Patient appears in no apparent distress at this time. Patient is alert, ca1 oriented x 3, equal unlabored respirations, skin warm/dry/pink. Patient states feeling better. Vital Signs: 12:41 BP 118 / 57; Pulse 100; Resp 18 S; Temp 98.9(O); Pulse Ox 100% on R/A; Weight 84.37 kg aa5 (R); Height 5 ft. 6 in. (167.64 cm) (R); Pain 3/10; 14:00 BP 111 / 58; Pulse 87; Resp 20 S; Pulse Ox 98% on R/A; ca1 14:37 BP 102 / 63; Pulse 99; Resp 16 S; Temp 98.7(O); Pulse Ox 100% on R/A; ca1 15:31 BP 107 / 69; Pulse 99; Resp 16 S; Temp 98.5(O); Pulse Ox 100% on R/A; ca1 12:41 Body Mass Index 30.02 (84.37 kg, 167.64 cm) aa5 ED Course: 12:35 Patient arrived in ED. rg4 12:37 Arm band placed on. aa5 12:39 Triage completed. aa5 12:40 EKG completed in triage. Results shown to MD. aa5 13:10 Patient has correct armband on for positive identification. Placed in gown. Bed in low ca1 position. Call light in reach. Side rails up X 1. pvc monitor on. Pulse ox on. NIBP on. Warm blanket given. 13:10 No provider procedures requiring assistance completed. Patient maintains SpO2 ca1 saturation greater than 95% on room air. 13:11 Frances Graf, NEY is Primary Nurse. ca1 13:15 Jose Mgiuel Mcclure MD is Attending Physician. 15:32 Patient did not have IV access during this emergency room visit. ca1 Administered Medications: 14:15 Drug: Albuterol 2.5 mg Route: Inhalation; ca1 14:15 Drug: AtroVENT Aerosol 0.5 mg Route: Inhalation; ca1 14:19 Drug: predniSONE 40 mg Route: PO; ca1 15:33 Follow up: Response: No adverse reaction; Marked relief of symptoms ca1 Outcome: 15:20 Discharge ordered by MD. 15:32 Discharged to home ambulatory. ca1 15:32 Condition: stable 15:32 Discharge instructions given to patient, Instructed on discharge instructions, follow up and referral plans. medication usage, Demonstrated understanding of instructions, follow-up care, medications, Prescriptions given X 2. 15:32 Patient left the ED. ca1 Signatures: Omaira Ham RN RN aa5 Karen Henriquez rg4 Jose Miguel Mcclure MD MD Frances Graf RN RN ca1 Corrections: (The following items were deleted from the chart) 12:39 12:37 Presenting complaint: Patient states: "My breathing problem started a few days aa5 ago so my doctor called me in an inhaler but I took it almost 3 hours ago and it hasn't helped". Pt states "my chest hurts when I breath" aa5 12:41 12:37 Presenting complaint: Patient states: "My breathing problem started a few days aa5 ago so my doctor called me in an inhaler but I took it almost 3 hours ago and it hasn't helped". Pt states "my chest hurts when I breath". Pt reports being 11 weeks . aa5
[2019-05-17 16:22] VITALS: O2SAT 100
[2019-05-17 16:23] VITALS: BP 107/69; TEMP 98.5
--- NOTE | 2019-05-18 09:37 | EKG ---
Test Date: 2019-05-17 Test Time: 12:39:31 Registration Clerk: JONH MEASUREMENT RESULTS: Intervals: Rate: 97 MS: 114 QRSD: 78 QT: 340 QTc: 431 [place]: P: 72 MS: 114 QRS: 81 T: 42 INTERPRETIVE STATEMENTS: Normal sinus rhythm Normal ECG No previous ECG available for comparison Electronically Signed On 05-18-19 09:35:53 CDT by Cordell Lau
== END 2019-05-17 15:32 | disposition home or self-care (01) ==
LOC: ER 12:34
DX: J20.9 Acute bronchitis, unspecified (principal)
CPT/HCPCS: 93005; 99285; J7512

== ENCOUNTER 2020-07-22 11:57 | Emergency (ER) | payer OTHER ==
--- OUTSIDE RECORDS SUMMARY | 2020-07-22 12:15 | XMS REPORT | Continuity of Care Document ---
:2000 Author Organization [facility] t Address [address] [place] [address] Care Team Providers Name Role Phone Leonora RN, L Attending Clinician Unavailable Payers Payer Name Policy Type Policy Number Effective Date Expiration Date S ource Problems This patient has no known problems. Allergies, Adverse Reactions, Alerts Allergy Allergy Status Severity Reaction(s) Onset Inactive Treating Comm ents Source Name Type Date Date Clinician No Known DA Active U 2019-1 [facility] 0-18 [facility] 00:[facility]: e 00 [facility] No Known DA Active U 2019-0 [facility] 00 [facility] No Known DA Active U 2016-0 [facility] 6[facility] 00 [facility] Medications This patient has no known medications. Procedures This patient has no known procedures. Encounters Start End Encounter Admission Attending Care Care Encounter Source Date/Time Date/Time Type Type Clinicians Facility Department ID 2019-11-27 2019-11-27 Transition Leonora Sammi [id number] 00:00:00 00:00:00 of Care Mery Hunter [id number] [place] [id number] Results Test Description Test Time Test Comments Results Result Comments Source [facility] FACTOR PANEL 2019-12-16 14:36:00 Test Item Value Reference Range Interpretation Comme nts PLATELET COUNT (test code = 312 x10 3/uL 130-408 PLT) THROMBOPLASTIN TIME PARTIAL 25 SECONDS 25-37 (test code = PTT) VW FACTOR ACTIVITY (test code 194 % () Patient's blood type: O = VWACT) Reference range specific for blood types:Typ e O: 40-126%Types A, B, and AB: 4 9-163% FACTOR VIII (test code = FAC8) 330 % 50-200 H FACTOR VIII ANTIGEN (test code 218 % () Patient's blood type: O = FAC8AG) Reference range specific for blood types:Typ e O: 42-141%Types A, B, and AB: 6 6-176% RISTOCETIN 0.5 MG (test code = 2 % 0-10 RIS0.5) RISTOCETIN 1.5MG (test code = 65 % 59-93 RIS1.5) VON WILLERBRAND INTERPRETATION SEE COMMENT () NO EVIDENCE of von Willebrand's (test code = VWFINT) disease . This interpretationis based on the te st results. To differentiate b etween the types of vWD, a vWF a ntigen,vWF activity and a Factor VIII activity should be performed.If all three value s are within the normal range, v WD andHeomphilia A may be exclud ed. If at least one parameter i sabnormally low, it is necessary to calculate ratiosvWF:ACT/v WF:Ag and FVIII/vWF:Ag. U sing 0.7 as a cutoff, ifboth ratios are equal to or >0.7, vWD type 1 may bediagnosed. If the vWF:ACT/vWF:Ag is <0.7, types 2A. 2B or 2Mmay be diagnosed. Additional test ing such as RistocetinInduc ed Platelet Aggregation, Mu ltimeric Analysis andBinding Assa ys are required for differentia tion of vWD.Also, when the FVIII/ vWF:Ag is <0.7, a type 2N or Hemo philiaA may be diagnosed and a FVIII Binding assay is necess dave todiscriminate. Conversely, vWF is an acute pha se reactant that rises duringphy sical stress, , hemo rrhage, acute infection,estro gen therapy, and exercise. IS PATIENT ON ANTICOAGULANTS ? NIS PATIENT ON ANTICOAGULANTS ? NDIAGNOSIS: INDUCTIONIS PATIENT ON ANTICOAGULANTS ? NDIAGNOSIS: INDUCTIONIS PATIENT ON ANTICOAGULANTS ? NDIAGNOSIS: INDUCTIONIS PATIENT ONANTICOAGULANTS ? NDIAGNOSIS: INDUCTIONIS PATIENT ON ANTICOAGULANTS ? NDIAGNOSIS: INDUCTIONCBC W/AUTO DIFF 2019-11-15 05:15:00 Test Item Value Reference Range Interpretation Comments WHITE BLOOD CELL (test 17.2 K/mm3 6.6-12.1 H Resul ts verified by code = WBC) repeat analysis RED BLOOD CELL (test 3.30 M/mm3 3.45-5.01 L code = RBC) HEMOGLOBIN (test code = 9.5 g/dL 10.7-13.9 L HGB) HEMATOCRIT (test code = 30.0 % 32.1-42.1 L HCT) MEAN CELL VOLUME (test 91 fL 84.1-94.8 N code = MCV) MEAN CELL HGB (test code 28.8 pg 27-35 N = MCH) MEAN CELL HGB 31.7 gm/dL 32.2-34.1 L CONCETRATION (test code = MCHC) RED CELL DISTRIBUTION 13.8 % 12.4-16.5 N WIDTH (test code = RDW) PLATELET COUNT (test 276 K/mm3 133-385 N code = PLT) IMMATURE PLATELET 0.0 % 0.0-10.8 N FRACTION (test code = IPF) MEAN PLATELET VOLUME 11.5 fl 9.1-12.7 N (test code = MPV) NEUTROPHIL % (test code 78.3 % 56.5-79.4 N = NT%) LYMPHOCYTE % (test code 12.3 % 14.3-34.3 L = LY%) MONOCYTE % (test code = 8.3 % 5.1-10.4 N MO%) EOSINOPHIL % (test code 0.4 % 0.1-3.0 N = EO%) BASOPHIL % (test code = 0.2 % 0.1-1.0 N BA%) NEUTROPHIL # (test code 13.5 K/mm3 = NT#) LYMPHOCYTE # (test code 2.1 K/mm3 = LY#) MONOCYTE # (test code = 1.4 K/mm3 MO#) EOSINOPHIL # (test code 0.07 K/mm3 = EO#) BASOPHIL # (test code = 0.0 K/mm3 BA#) RBC MORPHOLOGY REQUIRED NORMAL NORMAL (test code = RBCM) PLATELET MORPHOLOGY NORMAL NORMAL REQUIRED (test code = PLTMR) AG HEPATITIS B [id number] 16:07:00 Test Item Value Reference Range Interpretation Comments AG HEPATITIS B SURFACE (test code NONREACTIVE NONREACTIVE = HBSAG) IS CONSENT FORM SIGNED FOR HIV TESTING? KELSY HEPATITIS C [id number] 16:07:00 Test Item Value Reference Range Interpretation Comments AB HEPATITIS C (test code = NONREACTIVE NONREACTIVE HCVAB) SIGNAL TO CUTOFF (test code = 0.02 <0.80 N CUTOFF) IS CONSENT FORM SIGNED FOR HIV TESTING? KELSY [id number] 16:07:00 Test Item Value Reference Range Interpretation Comments AB TREPONEMA (test code = TREPAB) NONREACTIVE NONREACTIVE IS CONSENT FORM SIGNED FOR HIV TESTING? KELSY HIV 1 16:07:00 Test Item Value Reference Range Interpretation Comments AB HIV 1 2 Nonreactive NonReactive It is recognize d that (test code = currently avail able [id number]) assays for thed etection of antibodies t o HIV-1 and/or HIV-2 ma y notdetect all i nfected individuals. A negative test result boss snot exclude the pos sibility of exposure to or infection withH IV. HIV antibodies may be undetectable in some stages ofthe in fection and in some cli nical conditions. IS CONSENT FORM SIGNED FOR HIV TESTING? KELSY HIV 1 16:06:00 Test Item Value Reference Range Interpretation Comments AB HIV 1 2 Nonreactive NonReactive It is recognize d that (test code = currently avail able [id number]) assays for thed etection of antibodies t o HIV-1 and/or HIV-2 ma y notdetect all i nfected individuals. A negative test result boss snot exclude the pos sibility of exposure to or infection withH IV. HIV antibodies may be undetectable in some stages ofthe in fection and in some cli nical conditions. IS CONSENT FORM SIGNED FOR HIV TESTING? YVONWILLIBRAND FACTOR [id number] 10:18:00 Test Item Value Reference Range Interpretation Comments PLATELET COUNT (test 312 x10 3/uL 130-408 code = PLT) THROMBOPLASTIN TIME 25 SECONDS 25-37 PARTIAL (test code = PTT) PLATELET FUNCTION ANALYSIS (test code = PFA) VW FACTOR ACTIVITY 194 % () Patient's blood type: (test code = VWACT) O Refere nce range specific for bl ood types:Type O: 40-126%Types A, B, and AB: 49-163% PFA COLLAGEN/ADP (test code = COLADP) RISTOCETIN COFACTOR (test code = RIST) FACTOR VIII (test 330 % 50-200 H code = FAC8) FACTOR VIII ANTIGEN 218 % () Patient' s blood type: (test code = FAC8AG) O Refer ence range specific for bl ood types:Type O: 42-141%Types A, B, and AB: 66-176% RISTOCETIN 0.5 MG 2 % 0-10 (test code = RIS0.5) RISTOCETIN 1.5MG 65 % 59-93 (test code = RIS1.5) VON WILLERBRAND SEE COMMENT () NO EVIDENCE of von INTERPRETATION (test Willebr and's disease. code = VWFINT) This interpre tationis based on the te st results. To differentiate b etween the types of vW D, a vWF antigen,vWF activity and a Factor VIII activity s hould be performed.If all three values ar e within the norm al range, vWD andHeomphilia A may be excluded. If at least one parameter isabnormally lo w, it is necessary to calculate ratiosvWF:ACT/v WF:Ag and FVIII/vWF:A g. Using 0.7 as a cutoff, ifboth ratios a re equal to or >0. 7, vWD type 1 may bediagnosed. If the vWF:ACT/vWF:Ag is <0.7, types 2A. 2B or 2Mmay be diagno sed. Additional test ing such as RistocetinInduc ed Platelet Aggreg ation, Multimeric Anal ysis andBinding Assa ys are required for differentiation of vWD.Also, when the FVIII/vWF:Ag is <0.7, a type 2N or HemophiliaA may be diagnosed and a FVIII Binding assay i s necessary todiscriminate. Conversely, vWF is an acute phase sammie ctant that rises duringphysical stress, , hemo rrhage, acute infection,estro gen therapy, and ex ercise. IS PATIENT ON ANTICOAGULANTS ? NIS PATIENT ON ANTICOAGULANTS ? NDIAGNOSIS: INDUCTIONIS PATIENT ON ANTICOAGULANTS ? NDIAGNOSIS: INDUCTIONIS PATIENT ON ANTICOAGULANTS ? NDIAGNOSIS: INDUCTIONIS PATIENT ONANTICOAGULANTS ? NDIAGNOSIS: INDUCTIONIS PATIENT ON ANTICOAGULANTS ? NDIAGNOSIS: INDUCTIONVONWILLIBRAND FACTOR [id number] 10:15:00 Test Item Value Reference Range Interpretation Comments PLATELET COUNT (test 312 x10 3/uL 130-408 code = PLT) THROMBOPLASTIN TIME PARTIAL (test code = PTT) PLATELET FUNCTION ANALYSIS (test code = PFA) VW FACTOR ACTIVITY 194 % () Patient's blood (test code = VWACT) type: O Reference range specific for blood types:Typ e O: 40-126%Types A, B, and AB: 49-1 63% PFA COLLAGEN/ADP (test code = COLADP) RISTOCETIN COFACTOR (test code = RIST) FACTOR VIII (test code 330 % 50-200 H = FAC8) FACTOR VIII ANTIGEN 218 % () Patient' s blood (test code = FAC8AG) type: O Reference range specific for blood types:Typ e O: 42-141%Types A, B, and AB: 66-1 76% RISTOCETIN 0.5 MG (test 2 % 0-10 code = RIS0.5) RISTOCETIN 1.5MG (test 65 % 59-93 code = RIS1.5) VON WILLERBRAND INTERPRETATION (test code = VWFINT) IS PATIENT ON ANTICOAGULANTS ? NIS PATIENT ON ANTICOAGULANTS ? NDIAGNOSIS: INDUCTIONIS PATIENT ON ANTICOAGULANTS ? NDIAGNOSIS: INDUCTIONIS PATIENT ON ANTICOAGULANTS ? NDIAGNOSIS: INDUCTIONIS PATIENT ONANTICOAGULANTS ? NDIAGNOSIS: INDUCTIONVONWILLIBRAND FACTOR [id number] 10:14:00 Test Item Value Reference Range Interpretation Comments PLATELET COUNT (test code = PLT) 312 x10 3/uL 130-408 THROMBOPLASTIN TIME PARTIAL (test code = PTT) PLATELET FUNCTION ANALYSIS (test code = PFA) VW FACTOR ACTIVITY (test code = % VWACT) PFA COLLAGEN/ADP (test code = COLADP) RISTOCETIN COFACTOR (test code = RIST) FACTOR VIII (test code = FAC8) 330 % 50-200 H FACTOR VIII ANTIGEN (test code = FAC8AG) RISTOCETIN 0.5 MG (test code = 2 % 0-10 RIS0.5) RISTOCETIN 1.5MG (test code = 65 % 59-93 RIS1.5) VON WILLERBRAND INTERPRETATION (test code = VWFINT) IS PATIENT ON ANTICOAGULANTS ? NIS PATIENT ON ANTICOAGULANTS ? NDIAGNOSIS: INDUCTIONIS PATIENT ON ANTICOAGULANTS ? NDIAGNOSIS: INDUCTIONIS PATIENT ON ANTICOAGULANTS ? NDIAGNOSIS: INDUCTIONVONWILLIBRAND FACTOR [id number] 09:38:00 Test Item Value Reference Range Interpretation Comments PLATELET COUNT (test code = PLT) 312 x10 3/uL 130-408 THROMBOPLASTIN TIME PARTIAL (test code = PTT) PLATELET FUNCTION ANALYSIS (test code = PFA) VW FACTOR ACTIVITY (test code = % VWACT) PFA COLLAGEN/ADP (test code = COLADP) RISTOCETIN COFACTOR (test code = RIST) FACTOR VIII (test code = FAC8) FACTOR VIII ANTIGEN (test code = FAC8AG) RISTOCETIN 0.5 MG (test code = 2 % 0-10 RIS0.5) RISTOCETIN 1.5MG (test code = 65 % 59-93 RIS1.5) VON WILLERBRAND INTERPRETATION (test code = VWFINT) IS PATIENT ON ANTICOAGULANTS ? NIS PATIENT ON ANTICOAGULANTS ? NDIAGNOSIS: INDUCTIONIS PATIENT ON ANTICOAGULANTS ? NDIAGNOSIS: INDUCTIONVONWILLIBRAND FACTOR [id number] 09:16:00 Test Item Value Reference Range Interpretation Comments PLATELET COUNT (test code = PLT) 312 x10 3/uL 130-408 THROMBOPLASTIN TIME PARTIAL (test code = PTT) PLATELET FUNCTION ANALYSIS (test code = PFA) VW FACTOR ACTIVITY (test code = % VWACT) PFA COLLAGEN/ADP (test code = COLADP) RISTOCETIN COFACTOR (test code = RIST) FACTOR VIII (test code = FAC8) FACTOR VIII ANTIGEN (test code = FAC8AG) RISTOCETIN 0.5 MG (test code = RIS0.5) RISTOCETIN 1.5MG (test code = RIS1.5) VON WILLERBRAND INTERPRETATION (test code = VWFINT) IS PATIENT ON ANTICOAGULANTS ? NIS PATIENT ON ANTICOAGULANTS ? NDIAGNOSIS: INDUCTIONPROTHROMBIN [id number] 03:12:00 Test Item Value Reference Range Interpretation Comments PROTHROMBIN TIME PATIENT (test code 11.0 secs 10.4-12.4 N = PTP) THROMBOPLASTIN TIME [id number] 03:12:00 Test Item Value Reference Range Interpretation Comments THROMBOPLASTIN TIME PARTIAL (test 27.1 secs 22-38 N code = PTT) [id number] 03:12:00 Test Item Value Reference Range Interpretation Comments FIBRINOGEN (test code = FIB) 708 mg/dL 309-518 H CBC W/AUTO [id number] 21:07:00 Test Item Value Reference Range Interpretation Comments WHITE BLOOD CELL (test code = WBC) 11.5 K/mm3 6.6-12.1 N RED BLOOD CELL (test code = RBC) 3.31 M/mm3 3.45-5.01 L HEMOGLOBIN (test code = HGB) 9.4 g/dL 10.7-13.9 L HEMATOCRIT (test code = HCT) 29.5 % 32.1-42.1 L MEAN CELL VOLUME (test code = MCV) 89 fL 84.1-94.8 N MEAN CELL HGB (test code = MCH) 28.4 pg 27-35 N MEAN CELL HGB CONCETRATION (test 31.9 gm/dL 32.2-34.1 L code = MCHC) RED CELL DISTRIBUTION WIDTH (test 13.9 % 12.4-16.5 N code = RDW) PLATELET COUNT (test code = PLT) 306 K/mm3 133-385 N IMMATURE PLATELET FRACTION (test 0.0 % 0.0-10.8 N code = IPF) MEAN PLATELET VOLUME (test code = 11.0 fl 9.1-12.7 N MPV) NEUTROPHIL % (test code = NT%) 63.5 % 56.5-79.4 N LYMPHOCYTE % (test code = LY%) 24.7 % 14.3-34.3 N MONOCYTE % (test code = MO%) 8.3 % 5.1-10.4 N EOSINOPHIL % (test code = EO%) 2.4 % 0.1-3.0 N BASOPHIL % (test code = BA%) 0.3 % 0.1-1.0 N NEUTROPHIL # (test code = NT#) 7.3 K/mm3 LYMPHOCYTE # (test code = LY#) 2.8 K/mm3 MONOCYTE # (test code = MO#) 1.0 K/mm3 EOSINOPHIL # (test code = EO#) 0.28 K/mm3 BASOPHIL # (test code = BA#) 0.0 K/mm3 RBC MORPHOLOGY REQUIRED (test code NORMAL NORMAL = RBCM) PLATELET MORPHOLOGY REQUIRED (test NORMAL NORMAL code = PLTMR) AG HEPATITIS B [id number] 19:20:00 Test Item Value Reference Range Interpretation Comments AG HEPATITIS B SURFACE (test code NONREACTIVE NONREACTIVE = HBSAG) IS CONSENT FORM SIGNED FOR HIV TESTING? YAB HEPATITIS C [id number] 19:20:00 Test Item Value Reference Range Interpretation Comments AB HEPATITIS C (test code = NONREACTIVE NONREACTIVE HCVAB) SIGNAL TO CUTOFF (test code = 0.02 <0.80 N CUTOFF) IS CONSENT FORM SIGNED FOR HIV TESTING? YAB [id number] 19:20:00 Test Item Value Reference Range Interpretation Comments AB TREPONEMA (test code = TREPAB) NONREACTIVE NONREACTIVE IS CONSENT FORM SIGNED FOR HIV TESTING? YAB HIV 1 19:20:00 Test Item Value Reference Range Interpretation Comments AB HIV 1 2 (test code = [id number]) NONREACTIVE IS CONSENT FORM SIGNED FOR HIV TESTING? YAG HEPATITIS B [id number] 18:55:00 Test Item Value Reference Range Interpretation Comments AG HEPATITIS B SURFACE (test code NONREACTIVE NONREACTIVE = HBSAG) IS CONSENT FORM SIGNED FOR HIV TESTING? YAB HEPATITIS C [id number] 18:55:00 Test Item Value Reference Range Interpretation Comments AB HEPATITIS C (test code = HCVAB) NONREACTIVE SIGNAL TO CUTOFF (test code = CUTOFF) <0.80 IS CONSENT FORM SIGNED FOR HIV TESTING? YAB [id number] 18:55:00 Test Item Value Reference Range Interpretation Comments AB TREPONEMA (test code = TREPAB) NONREACTIVE NONREACTIVE IS CONSENT FORM SIGNED FOR HIV TESTING? YAB HIV 1 18:55:00 Test Item Value Reference Range Interpretation Comments AB HIV 1 2 (test code = MTI95PC) NONREACTIVE IS CONSENT FORM SIGNED FOR HIV TESTING? YCBC W/AUTO [id number] 18:14:00 Test Item Value Reference Range Interpretation Comments WHITE BLOOD CELL (test code = WBC) 11.0 K/mm3 6.6-12.1 N RED BLOOD CELL (test code = RBC) 3.38 M/mm3 3.45-5.01 L HEMOGLOBIN (test code = HGB) 9.6 g/dL 10.7-13.9 L HEMATOCRIT (test code = HCT) 30.2 % 32.1-42.1 L MEAN CELL VOLUME (test code = MCV) 89 fL 84.1-94.8 N MEAN CELL HGB (test code = MCH) 28.4 pg 27-35 N MEAN CELL HGB CONCETRATION (test 31.8 gm/dL 32.2-34.1 L code = MCHC) RED CELL DISTRIBUTION WIDTH (test 13.9 % 12.4-16.5 N code = RDW) PLATELET COUNT (test code = PLT) 300 K/mm3 133-385 N IMMATURE PLATELET FRACTION (test 0.0 % 0.0-10.8 N code = IPF) MEAN PLATELET VOLUME (test code = 11.2 fl 9.1-12.7 N MPV) NEUTROPHIL % (test code = NT%) 68.4 % 56.5-79.4 N LYMPHOCYTE % (test code = LY%) 20.8 % 14.3-34.3 N MONOCYTE % (test code = MO%) 7.9 % 5.1-10.4 N EOSINOPHIL % (test code = EO%) 2.0 % 0.1-3.0 N BASOPHIL % (test code = BA%) 0.4 % 0.1-1.0 N NEUTROPHIL # (test code = NT#) 7.5 K/mm3 LYMPHOCYTE # (test code = LY#) 2.3 K/mm3 MONOCYTE # (test code = MO#) 0.9 K/mm3 EOSINOPHIL # (test code = EO#) 0.22 K/mm3 BASOPHIL # (test code = BA#) 0.0 K/mm3 RBC MORPHOLOGY REQUIRED (test code NORMAL NORMAL = RBCM) PLATELET MORPHOLOGY REQUIRED (test NORMAL NORMAL code = PLTMR) [id number] 13:24:00 Test Item Value Reference Range Interpretation Comments FIBRONECTIN NEGATIVE Among symp tomatic (test code = FFN) women, ender vated levels (>0.05 ug/mL) o ffFN between 24 week s and 34 weeks, 6 days i ndicate increasedrisk o f delivery in <= 7 or <= 14 days from samplecollectio n. Similarly, eva g asymptomatic wo men, elevated levels of fFNbetween 22 w eeks and 30 weeks, 6 day s indicate increa sedrisk of delivery in <= 34 weeks, 6 days o f gestation. - US [id number] 11:54:00 Patient Name: YUMIKO TERAN Unit No: [id number] EXAMS: CPT CODE: [id number] [place] LTD [address] [facility] [address] [place], [place] [address] LIMITED OBSTETRICAL ULTRASOUND REPORT Pat. Name: YUMIKO TERAN Pat. No: [id number] Study Date: 10/07/2019 11:11am , Age: 05 2000, 19 Pregnancies: 1 LMP: Unknown GA Selected: 31w5d (From Known E) JOVITA:12/04/2019 Referring MD: BONNIE SIDHU Inspector Watch Assembly: Jenniffer Vaca RDMS CPT4: USPREGLTD Admitting MD: BONNIE SIDHU Hist/Ind: 2ND SCAN: CX LENGHT AND HUA Cervical Length: 2.3 cm Heart Rate: 130 bpm Amniotic Fluid Index: 11.4cm (08.7- 24.1) Q1: 2.7cm Q2: 2.5cm Q3: 2.9cm Q4: 3.3cm MATERNAL ANATOMY Ovaries LxHxW (cm) Right 2.5 x 1.8 x 2.0 Vol: 4.7ccLeft 2.5 x 1.8 x 1.6 Vol: 3.8cc CLINICAL SUMMARY Type of Gestation: Taylor Intrauterine in vertex presentation. motion and organs seen: heart motion seen Placental location: Anterior Placental maturity :Grade 2 There is no evidence of placenta previa. Amniotic fluid volume is normal. Uterus and adnexa: No significant abnormality is seen. Cervix length 2.3 cm TL. Tamela Soriano M.D. Electronic Signature 10/07/2019 11:54am at 1154 Reported and signed by: Tamela Soriano MD [facility] NAME: YUMIKO TERAN SYBIL Radiology Department PHYS: Bonnie Garg DO [address] : 2000 AGE: 19 SEX: F [place], [place] [address] LOC: QuentinDOMINIC PHONE #: [phone] EXAM DATE: 10/07/2019 STATUS: REG ER FAX #: [phone] RAD NO: Page 1 Signed Report (CONTINUED) Patient Name: YUMIKO TERAN Unit No: [id number] EXAMS: CPT CODE: [id number] US [id number] <Continued> CC: Bonnie Sidhu DO Technologist: Jenniffer Vaca RDMS Probe: Trnscrbd D/ (115) t.ROBLESR.NMG Orig Print D/T: S: 10/07/2019 (1154) [facility] NAME: YUMIKO TERAN Radiology Department PHYS: Bonnie Garg DO [address] : 2000 AGE: 19 SEX: F [place] [address] LOC: QuentinDOMINIC PHONE #: [phone] EXAM DATE: 10/07/2019 STATUS: REG ER FAX #: [phone] RAD NO: Page 2 Signed Report Patient Name: YUMIKO TERAN Unit No: [id number] EXAMS: CPT CODE: [id number] [place] LTD [address] <Continued> [facility] NAME: YUMIKO TERAN SYBIL Radiology Department PHYS: Bonnie Garg DO [address] : 2000 AGE: 19 SEX: F [place] [address] LOC: QuentinDOMINIC PHONE #: [phone] EXAM DATE: 10/07/2019 STATUS: REG ER FAX #: [phone] RAD NO: Page 3 Signed Report- US LTD 2019-08-16 21:34:00 Patient Name: YUMIKO TERAN Unit No: [id number] EXAMS: CPT CODE: [id number] [place] LTD [address] ULTRASOUND; LIMITED EVALUATION: HISTORY: Second trimester with decreased movement. Vaginal bleeding. Evaluate placenta. COMPARISON EXAMS: None available. TECHNIQUE: Sonographic evaluation was performed using high resolution B-mode, pulse and colorDoppler imaging. FINDINGS: A single living fetus is identified in cephalic presentation with cardiac activity documented at 137 bpm. The placenta is positioned anteriorly, is grade 1, with no evidence of placenta previa or marginal extra chorionic fluid collections. Amniotic fluid volume issubjectively normal. The cervix is closed and measures 4.2 cm in length. IMPRESSION: 1. Single living intrauterine gestation. 2. Anterior placenta without evidence of placenta previa or subchorionic fluid collections. SL:01 at 2134 Reported and signed by: Franklin Loius MD CC: Bonnie Sidhu DO Technologist: Manuela Dougherty RDMS Probe: Trnscrbd D/ (2133) IvetteAJJ Orig Print D/T: S: 08/16/2019 (2136) [facility] NAME: YUMIKO TERAN SYBIL Radiology Department PHYS: Bonnie Garg DO [address] : 2000 AGE: 19 SEX: F [place], [place] [address]IEIL NO: [id number] LOC: QuentinDOMINIC PHONE #: [phone] EXAM DATE: 08/16/2019 STATUS: REG ER FAX #: [phone] RAD NO: Page 1 Signed Report Patient Name: YUMIKO TERAN Unit No: [id number] EXAMS: CPT CODE: [id number] LTD [address] <Continued> [facility] NAME: YUMIKO TERAN Radiology Department PHYS: Bonnie Garg DO [address] : 2000 AGE: 19 SEX: F [place], [place] [address] LOC: QuentinDOMINIC PHONE #: [phone] EXAM DATE: 08/16/2019 STATUS: REG ER FAX #:[phone] RAD NO: Page 2 Signed [id number] 14:27:00 Test Item Value Reference Range Interpretation Comments GLUBED (test code = GLUBED) 79 mg/dL 65-110 N PROTHROMBIN [id number] 14:20:00 Test Item Value Reference Range Interpretation Comments PROTHROMBIN TIME PATIENT (test code 12.6 secs 10.4-12.4 H = PTP) THROMBOPLASTIN TIME [id number] 14:20:00 Test Item Value Reference Range Interpretation Comments THROMBOPLASTIN TIME PARTIAL (test 29.8 secs 22-38 N code = PTT) COMPREHENSIVE METABOLIC [id number] 14:09:00 Test Item Value Reference Range Interpretation Comments SODIUM (test code = NA) 135 mEq/L 135-145 N POTASSIUM (test code = K) 4.1 mEq/L 3.5-5.0 N CHLORIDE (test code = CL) 102 mEq/L 100-115 N CARBON DIOXIDE (test code = CO2) 25 mEq/L 22-31 N ANION GAP (test code = GAP) 11.70 10-20 N GLUCOSE (test code = GLU) 86 mg/dL 65-110 N BLOOD UREA NITROGEN (test code = 9 mg/dL 7-18 N BUN) GLOMERULAR FILTRATION RATE (test 106 ml/min >60 N code = GFR) CREATININE (test code = CREAT) 0.7 mg/dL 0.5-1.0 N TOTAL PROTEIN (test code = PROT) 7.3 gm/dL 6.3-8.2 N ALBUMIN (test code = ALB) 3.5 gm/dL 3.4-4.8 N CALCIUM (test code = CA) 8.8 mg/dL 8.4-10.2 N BILIRUBIN TOTAL (test code = BILT) 0.2 mg/dL 0.2-1.0 N SGOT/AST (test code = AST) 12 units/L 15-37 L SGPT/ALT (test code = ALT) 15 units/L 12-78 N ALKALINE PHOSPHATASE TOTAL (test 79 units/L 46-116 N code = ALKP) CREATINE KINASE (CK)2019-05-01 14:09:00 Test Item Value Reference Range Interpretation Comments CREATINE KINASE (CK) (test code = 50 Units/L 26-192 N CK) [id number] 14:09:00 Test Item Value Reference Range Interpretation Comments TROPONIN-I (test code = TROPI) <0.017 ng/mL <0.056 N UA RFLX MICR CULT IF [id number] 13:52:00 Test Item Value Reference Range Interpretation Comments UA COLOR (test code = COLU) YELLOW YELLOW UA APPEARANCE (test code = Slightly-Cloudy CLEAR APPU) UA GLUCOSE DIPSTICK (test NEGATIVE NEG code = DGLUU) UA BILIRUBIN DIPSTICK (test NEGATIVE NEG code = BILU) UA KETONE DIPSTICK (test code NEGATIVE NEG = KETU) UA SPECIFIC GRAVITY (test 1.012 1.001-1.035 N code = SGU) UA BLOOD DIPSTICK (test code NEG NEG = MARY) UA PH DIPSTICK (test code = 8.0 5-9 PREMA) UA PROTEIN DIPSTICK (test NEGATIVE NEG code = PROU) UA UROBILINIOGEN DIPSTICK NEGATIVE mg/dL NEG (test code = URO) UA NITRITE DIPSTICK (test NEG NEG code = ANDREZ) UA LEUKOCYTE ESTERASE NEG NEG DIPSTICK (test code = LEUU) UA WBC (test code = WBCU) 0-2 #/hpf NONE SEEN UA RBC (test code = RBCU) 0-2 #/hpf NONE SEEN UA EPITHELIAL CELLS (test RARE #/HPF RARE-FEW code = EPIU) UA MUCUS (test code = MUCU) RARE NONE SEEN Indication for culture: Dysuria/FrequencyCBC W/AUTO [id number] 13:46:00 Test Item Value Reference Range Interpretation Comments WHITE BLOOD CELL (test code = WBC) 8.8 K/mm3 6.6-12.1 N RED BLOOD CELL (test code = RBC) 3.99 M/mm3 3.45-5.01 N HEMOGLOBIN (test code = HGB) 11.2 g/dL 10.7-13.9 N HEMATOCRIT (test code = HCT) 34.3 % 32.1-42.1 N MEAN CELL VOLUME (test code = MCV) 86 fL 84.1-94.8 N MEAN CELL HGB (test code = MCH) 28.1 pg 27-35 N MEAN CELL HGB CONCETRATION (test 32.7 gm/dL 32.2-34.1 N code = MCHC) RED CELL DISTRIBUTION WIDTH (test 17.3 % 12.4-16.5 H code = RDW) PLATELET COUNT (test code = PLT) 329 K/mm3 133-385 N IMMATURE PLATELET FRACTION (test 0.0 % 0.0-10.8 N code = IPF) MEAN PLATELET VOLUME (test code = 10.5 fl 9.1-12.7 N MPV) NEUTROPHIL % (test code = NT%) 61.7 % 56.5-79.4 N LYMPHOCYTE % (test code = LY%) 27.5 % 14.3-34.3 N MONOCYTE % (test code = MO%) 7.5 % 5.1-10.4 N EOSINOPHIL % (test code = EO%) 2.6 % 0.1-3.0 N BASOPHIL % (test code = BA%) 0.5 % 0.1-1.0 N NEUTROPHIL # (test code = NT#) 5.4 K/mm3 LYMPHOCYTE # (test code = LY#) 2.4 K/mm3 MONOCYTE # (test code = MO#) 0.7 K/mm3 EOSINOPHIL # (test code = EO#) 0.23 K/mm3 BASOPHIL # (test code = BA#) 0.0 K/mm3 RBC MORPHOLOGY REQUIRED (test code NORMAL NORMAL = RBCM) PLATELET MORPHOLOGY REQUIRED (test NORMAL NORMAL code = PLTMR) - CT HEAD/BRAIN W/O [id number] 13:33:00 Patient Name: YUMIKO TERAN Unit No: [id number] EXAMS: CPT CODE: [id number] CT HEAD/BRAIN W/O CONT 86812 CT HEAD WITHOUT CONTRAST: 05/01/2019 COMPARISON: None CLINICAL HISTORY: fall One or more of the following dose techniques were utilized; automated exposure control, adjustment of the mA and/or kV according to patient size, and/or utilization of iterative reconstruction technique. DLP: 641.50 [...] Doe Serrano MD CC: Susan Fajardo MD; [facility] Technologist: RT [place], CT CTDI: 40.09 DLP: 641.50 Trnscrbd D/ (1333) [id number] [facility] NAME: YUMIKO TERAN [place] Radiology Department PHYS: CANALAidan Susan Pryor MD [address] : 2000 AGE: 19 SEX: F [place], [place] [address] LOC: F.ERS PHONE #: [phone] EXAM DATE: 05/01/2019 STATUS: REG ER FAX #: [phone] RAD NO: Page 1 Signed Report 1 Patient Name: YUMIKO TERAN Unit No: [id number] EXAMS: CPT CODE: [id number] CT HEAD/BRAIN W/O CONT 13846 <Continued> Orig Print D/T: S: 05/01/2019 (1336) [facility] NAME: YUMIKO TERAN [place] Radiology Department PHYS: CANAL.Susan Leblanc MD [address] : 2000 AGE: 19SEX: F [place] [address] LOC: F.ERS PHONE #: EXAM DATE: 05/01/2019 STATUS: REG ER FAX #: [phone] RAD NO: Page 2 Signed Report 1- XR CHEST 1 [id number] 13:05:00 Patient Name: YUMIKO TERAN Unit No: [id number] EXAMS: CPT CODE: [id number] XR CHEST 1 V 14074 CHEST 1 VIEW: 05/01/2019 COMPARISON: NONE CLINICAL HISTORY: WEAKNESS FINDINGS: The cardiovascular silhouette is normal in size. No infiltrates or pulmonary edema is present. No pleural effusions are seen. IMPRESSION: No acute pulmonary disease. at 1305 Reported and signed by: Doe Serrano MD CC: Susan Fajardo MD; [facility] Technologist: RT Nithya Trnscrbd D/ ([id number])[id number] Orig Print D/T: S: 05/01/2019 (1309) [facility] NAME: YUMIKO TERAN SYBIL Radiology Department PHYS: CANAL.Susan Leblanc MD [address] : 2000 AGE: 19 SEX: F [place], [place] [address] LOC: F.ERS PHONE #: [phone] EXAM DATE: 05/01/2019 STATUS: REG ER FAX #: [phone] RAD NO: Page 1 Signed Report
--- NOTE | 2020-07-22 13:05 | RAD REPORT ---
EXAM DESCRIPTION: RAD - Chest Single View - 07/22/2020 12:58 pm CLINICAL HISTORY: Congestion;Cough Chest pain. COMPARISON: Chest Single View dated 01/31/2019; Chest Pa And Lat (2 Views) dated 12/23/2016; CHEST SING LE VIEW dated 08/12/2012 FINDINGS: Portable technique limits examination quality. The lungs are grossly clear. The heart is normal in size. No displaced fractures. IMPRESSION: No acute intrathoracic process suspected.
--- NOTE | 2020-07-22 13:30 | ER ---
Nurse's Notes [facility] Name: Ariella Mei Age: 20 yrs Sex: Female : 2000 Arrival Date: 07/22/2020 Time: 12:00 Bed 16 Private MD: Diagnosis: Acute upper respiratory infection, unspecified Presentation: 07/22 12:07 Chief complaint: Patient states: Fever, cough and congestion, fatigue, abdominal ca1 cramps, N/V/diarrhea, headache, can't taste much x 4 days. Coronavirus screen: Client denies travel out of the [place] in the last 14 days. congestion, cough unrelated to allergies, diarrhea, fatigue, fever, headache, nausea, runny nose, sore throat, loss of taste or smell, vomiting. Client presents with at least one sign or symptom that may indicate coronavirus-19. Standard/surgical mask placed on the client. Provider contacted for isolation considerations. Ebola Screen: Patient negative for fever greater than or equal to 101.5 degrees Fahrenheit, and additional compatible Ebola Virus Disease symptoms Patient denies exposure to infectious person. Patient denies travel to an Ebola-affected area in the 21 days before illness onset. No symptoms or risks identified at this time. Initial Sepsis Screen: Does the patient meet any 2 criteria? No. Patient's initial sepsis screen is negative. Does the patient have a suspected source of infection? No. Patient's initial sepsis screen is negative. Risk Assessment: Do you want to hurt yourself or someone else? Patient reports no desire to harm self or others. Onset of symptoms was July 22, 2020. 12:07 Method Of Arrival: Ambulatory ca1 12:07 Acuity: JEFF 4 ca1 STAFF PSYCHIATRIST: 12:26 LMP 07/08/2020 ca1 Historical: - Allergies: 12:26 NKDA; ca1 - Home Meds: 12:26 None [Active]; ca1 - PMHx: 12:26 Asthma; Von Willebrand disease; bleeding disorder; ca1 - PSHx: 12:26 Knee surgery; bone extraction- bone tumor; ca1 - Immunization history:: Adult Immunizations up to date. - Social history:: Smoking status: Reported history of juuling and/or vaping. Screenin:47 Abuse screen: Denies threats or abuse. Nutritional screening: No deficits noted. ll2 Tuberculosis screening: No symptoms or risk factors identified. Fall Risk None identified. Assessment: 12:32 General: Appears in no apparent distress. Behavior is calm, cooperative, appropriate ll2 for age. Pain: Complains of pain in throat Pain currently is 7 out of 10 on a pain scale. Quality of pain is described as tender, Pain began 2-3 days ago. Neuro: Level of Consciousness is awake, alert, obeys commands, Oriented to person, place, time, situation. Cardiovascular: Capillary refill < 3 seconds Patient's skin is warm and dry. Respiratory: Airway is patent Respiratory effort is even, unlabored, Breath sounds are clear bilaterally. GI: No signs and/or symptoms were reported involving the gastrointestinal system. : No signs and/or symptoms were reported regarding the genitourinary system. EENT: Throat is pink. Derm: Skin is intact, is healthy with good turgor, Skin is dry, Skin is pink, warm \T\ dry. Skin temperature is warm. Musculoskeletal: Circulation, motion, and sensation intact. Range of motion: intact in all extremities. 12:37 Reassessment: pt states she has had a sore throat and runny nose for the past 3-4 days. ll2 13:18 Reassessment: Patient and/or family updated on plan of care and expected duration. Pain ll2 level reassessed. Patient is alert, oriented x 3, equal unlabored respirations, skin warm/dry/pink. Vital Signs: 12:07 BP 129 / 73; Pulse 106; Resp 19; Temp 98.3(O); Pulse Ox 100% on R/A; Weight 86.18 kg ca1 (R); Height 5 ft. 6 in. (167.64 cm) (R); Pain 7/10; 12:43 BP 126 / 94; Pulse 95; Resp 16; Pulse Ox 97% on R/A; Pain 7/10; ll2 12:07 Body Mass Index 30.67 (86.18 kg, 167.64 cm) ca1 ED Course: 12:00 Patient arrived in ED. ag5 12:01 Mendy Banks FNP-C is [facility]. kb 12:01 Gianluca Davidson MD is Attending Physician. kb 12:06 Mena Sears RN is Primary Nurse. ll2 12:25 Triage completed. ca1 12:26 Arm band placed on right wrist. ca1 12:43 Flu and/or RSV swab sent to lab. Strep swab sent to lab. ll2 12:47 No provider procedures requiring assistance completed. ll2 12:58 Chest Single View XRAY In Process Unspecified. EDMS 13:49 Patient has correct armband on for positive identification. Bed in low position. Call ll2 light in reach. Side rails up X 1. 13:49 Patient did not have IV access during this emergency room visit. ll2 Administered Medications: No medications were administered Outcome: 13:30 Discharge ordered by . reid 13:49 Discharged to home ambulatory. ll2 13:49 Condition: stable 13:49 Discharge instructions given to patient, Instructed on discharge instructions, follow up and referral plans. Demonstrated understanding of instructions, follow-up care. 13:49 Patient left the ED. ll2 Addendum: 07/24/2020 14:23 Addendum: COVID-19 Result: Negative result given to RN to notify pt. Contacted by: missy Johnson RN . Notified pt of negative COVID 19 swab results. Pt advised that even with a negative test result they should remain in isolation until symptom free for 3 days without medication. Pt also advised to return to the ED for worsening symptoms. Signatures: Dispatcher [employer] EDNV Mendy Banks, SHOPPING INVESTIGATOR-C SHOPPING INVESTIGATOR-Lynn Serra, Frances Boland RN, RN RN ca1 Kiara Mansfield ag5 Mena Sears RN RN ll2
--- NOTE | 2020-07-22 13:31 | EDPHYS ---
Physician Documentation [facility] Name: Ariella Mei Age: 20 yrs Sex: Female : 2000 Arrival Date: 07/22/2020 Time: 12:00 Bed 16 Private MD: ED Physician Gianluca Davidson HPI: 07/22 13:38 This 20 yrs old Female presents to ER via Ambulatory with complaints of kb Fever, Sore Throat, Runny Nose, Shortness Of Breath. 13:38 Pt reports fever, cough, congestion, sore throat, headache, malaise and diarrhea for 4 kb days. . 13:38 The patient or guardian reports cough, that is intermittent, described as mild, with no kb sputum, flu symptoms, low-grade fever, myalgias. Onset: The symptoms/episode began/occurred 4 day(s) ago. Severity of symptoms: At their worst the symptoms were mild, moderate, in the emergency department the symptoms are unchanged. Modifying factors: The symptoms are alleviated by nothing, the symptoms are aggravated by nothing. Associated signs and symptoms: Pertinent positives: diarrhea, fever, rhinorrhea, sore throat. The patient has not experienced similar symptoms in the past. The patient has not recently seen a physician. 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 - Social history:: Smoking status: Reported history of juuling and/or vaping. ROS: 13:37 Cardiovascular: Negative for chest pain, palpitations, and edema, Back: Negative for kb injury and pain, MS/Extremity: Negative for injury and deformity, Skin: Negative for injury, rash, and discoloration. 13:37 Constitutional: Positive for body aches, chills, fatigue, fever, malaise. 13:37 ENT: Positive for rhinorrhea, sinus congestion, sore throat. 13:37 Respiratory: Positive for cough, Negative for dyspnea on exertion, hemoptysis, orthopnea, pleurisy, shortness of breath, sputum production, wheezing. 13:37 Abdomen/GI: Positive for diarrhea, Negative for abdominal pain, nausea and vomiting. 13:37 Neuro: Positive for headache. Exam: 13:38 Constitutional: This is a well developed, well nourished patient who is awake, alert, kb and in no acute distress. Head/Face: Normocephalic, atraumatic. ENT: Nares patent. No nasal discharge, no septal abnormalities noted. Tympanic membranes are normal and external auditory canals are clear. Oropharynx with no redness, swelling, or masses, exudates, or evidence of obstruction, uvula midline. Mucous membranes moist. Neck: Trachea midline, no thyromegaly or masses palpated, and no cervical lymphadenopathy. Supple, full range of motion without nuchal rigidity, or vertebral point tenderness. No Meningismus. Chest/axilla: Normal chest wall appearance and motion. Nontender with no deformity. No lesions are appreciated. Cardiovascular: Regular rate and rhythm with a normal S1 and S2. No gallops, murmurs, or rubs. Normal PMI, no JVD. No pulse deficits. Respiratory: Lungs have equal breath sounds bilaterally, clear to auscultation and percussion. No rales, rhonchi or wheezes noted. No increased work of breathing, no retractions or nasal flaring. Abdomen/GI: Soft, non-tender, with normal bowel sounds. No distension or tympany. No guarding or rebound. No evidence of tenderness throughout. Skin: Warm, dry with normal turgor. Normal color with no rashes, no lesions, and no evidence of cellulitis. MS/ Extremity: Pulses equal, no cyanosis. Neurovascular intact. Full, normal range of motion. Neuro: Awake and alert, GCS 15, oriented to person, place, time, and situation. Cranial nerves II-XII grossly intact. Motor strength 5/5 in all extremities. Sensory grossly intact. Cerebellar exam normal. Normal gait. Vital Signs: 12:07 BP 129 / 73; Pulse 106; Resp 19; Temp 98.3(O); Pulse Ox 100% on R/A; Weight 86.18 kg ca1 (R); Height 5 ft. 6 in. (167.64 cm) (R); Pain 7/10; 12:43 BP 126 / 94; Pulse 95; Resp 16; Pulse Ox 97% on R/A; Pain 7/10; ll2 12:07 Body Mass Index 30.67 (86.18 kg, 167.64 cm) ca1 MDM: 12:06 Patient medically screened. kb 13:36 Data reviewed: vital signs, nurses notes. Data interpreted: Pulse oximetry: on room air kb is 97 %. Interpretation: normal. Counseling: I had a detailed discussion with the patient and/or guardian regarding: the historical points, exam findings, and any diagnostic results supporting the discharge/admit diagnosis, lab results, radiology results, the need for outpatient follow up, a family practitioner, to return to the emergency department if symptoms worsen or persist or if there are any questions or concerns that arise at home. 07/22 12:24 Order name: Flu; Complete Time: 13:18 kb 07/22 12:24 Order name: Strep; Complete Time: 13:18 kb 07/22 12:24 Order name: Chest Single View XRAY; Complete Time: 13:07 kb 07/22 13:14 Order name: Throat Culture EDTN 07/22 13:26 Order name: COVID-19 kb Administered Medications: No medications were administered Disposition: 14:41 Co-signature as Attending Physician, Gianluca Davidson MD I agree with the assessment and kdr plan of care. Disposition: 07/22/20 13:30 Discharged to Home. Impression: Acute upper respiratory infection, unspecified. - Condition is Stable. - Discharge Instructions: Viral Respiratory Infection, Ltlf-Kz-Peey, COVID-19. - Medication Reconciliation Form, Thank You Letter, Antibiotic Education, Prescription Opioid Use form. - Follow up: Emergency Department; When: As needed; Reason: Worsening of condition. Follow up: Private Physician; When: 2 - 3 days; Reason: Recheck today's complaints, Continuance of care, Re-evaluation by your physician. Signatures: Dispatcher [employer] EDTN Mendy Banks, KATE JONES-Gianluca Berger MD MD [facility] Frances Graf RN RN ca1 Mena Sears RN RN ll2 Corrections: (The following items were deleted from the chart) 13:49 13:30 07/22/2020 13:30 Discharged to Home. Impression: Acute upper respiratory ll2 infection, unspecified. Condition is Stable. Discharge Instructions: Viral Respiratory Infection, Mrpv-Rz-Khtn, COVID-19. Forms are Medication Reconciliation Form, Thank You Letter, Antibiotic Education, Prescription Opioid Use. Follow up: Emergency Department; When: As needed; Reason: Worsening of condition. Follow up: Private Physician; When: 2 - 3 days; Reason: Recheck today's complaints, Continuance of care, Re-evaluation by your physician. kb
[2020-07-22 13:57] VITALS: TEMP 98.3
[2020-07-22 13:58] VITALS: BP 126/94; O2SAT 97
== END 2020-07-22 13:49 | disposition home or self-care (01) ==
LOC: ER 11:57
DX: J06.9 Acute upper respiratory infection, unspecified (principal); Z20.828 Contact with and (suspected) exposure to other viral communicable diseases; D68.0 Von Willebrand disease; Z87.891 Personal history of nicotine dependence
CPT/HCPCS: 87070; 87081; 87804 ×2; 71045; 99283; U0002

== ENCOUNTER 2024-02-19 11:51 | Emergency (ER) | payer OTHER ==
--- OUTSIDE RECORDS SUMMARY | 2024-02-19 11:57 | XMS REPORT | Continuity of Care Document ---
Author Name Unknown Address [address] [facility]. [address] [place] [address] [facility] Address [address] [facility] [address] [place] [address] Care Team Providers Care Animation Artist Name Role Phone Pcp, Patient Does Not Have A Primary Care Physic cindy Bonnie Kaba Attending Clinician Unavailable MARILYN SANDOVAL Attending Clinician Unavailable DEANDRE RAMIREZ Attending Clinician Unavail able Jaime GRAVES, Marilyn Attending Clinician [phone] Anna Aparicio CNM Attending Clinician [phone] Doctor Unassigned, [place] Attending Clinician U navailable [facility]ending [facility]ician Chitra vailajaycee Ramirez Deandre LIMA Attending Clinician + Kendra BREWSTER, Dahlia Singletary Attending Clinician Unavailab SUKHI Day Attending Clinician Unavailable Isaac Mcmanus MD Attending Clinician [phone] EbSukhi Grullon Attending Clinician [phone] SAW OSHEA Attending Clinician Unavailable Saw Contreras Attending Clinician [phone] Elodia Kay Attending Clinician [phone] BING GONZALEZ Attending Clinician Micaela Lea RN, Mery Hay Attending Clinician Unavail able Juli JONES, Gianluca Singletary Attending Clinician [phone] Josué Bello MD Attending Clinician [phone] UNKNOWN Attending Clinician Unavailable Sanjeev JONES, Brooke Attending Clinician [phone] HteaBonnie Admitting Clinician Unavailable Josué Bello MD Admitting Clinician [phone] Payers Payer Name Policy Type Policy Number Effective Date Expirati on Date Source [employer] [id number] 2019 00:00:00 Problems Condition Name Condition Details Condition Category Status Onset Date Resolution Date Last Treatment Date Treating Clinician Comments Source Complicate d UTI (urinary tract infection) Complicate d UTI (urinary tract infection) Disease Active 11-26 00:00: 00 [facility] examinatio n or test, positive result examinatio n or test, positive result Disease Active 04-23 00:00: 00 Overview: Formattin g of this note might be different from the original. 04/09/19 - HCG of 4,443; pelvic US on that day revealed an intrauter ine gestation al sac and yolk sac, measuring 5.3 weeks. No pole was seen. There was a 1.8 cm right ovarian cyst and the left ovary was not seen.04/22 - Single live IUP of 6 weeks and 6 days size confirmed with approxima te JOVITA of 12/10/2019 . [facility] Von Willebrand disease Von Willebrand disease Disease Active 06-27 00:00: 00 [facility] Vaginitis and vulvovagin itis, unspecifie d Vaginitis and vulvovagin itis, unspecifie d Disease Active 02-02 00:00: 00 Overview: Formattin g of this note might be different from the original. 04/19/19 - BV positive. [facility] Allergies, Adverse Reactions, Alerts Allergy Name Allergy Type Status Severity Reaction(s) Onset Date Inactive Date Treating Clinician Comments Source No Known Allergie s DA Active U 2018-10 00:00: 00 [facility] No Known Allergie s DA Active U 2018-1 0-18 00:00: 00 [facility] No Known Allergie s DA Active U 0 7-03 00:00: 00 [facility] Nsaids (Non-Krzysztof roidal Anti-Inf lammator y Drug) Propensi ty to adverse reaction s Active Other - See comments 02-08 00:00: 00 Coag problem [facility] NSAIDS (NON-KRZYSZTOF ROIDAL ANTI-INF LAMMATOR Y DRUG) Drug Class Active Other-Cmnt 02-08 00:00: 00 [facility] Nsaids (Non-Krzysztof roidal Anti-Inf lammator y Drug) Propensi ty to adverse reaction s Active Other - See comments 02-08 00:00: 00 Coag problem [facility] Aspirin Propensi ty to adverse reaction s Active Other - See comments 06-30 00:00: 00 Pt has coag problem [facility] ASPIRIN DRUG INGREDI Active Other-Cmnt 06-30 00:00: 00 [facility] No Known Allergie s DA Active U 608 00:00: 00 [facility] Social History Social Habit Start Date Stop Date Quantity Comments Source ASSERTION 2019-03-13 00:00:00 [facility] History of tobacco use Cigarette Smoker [facility] Exposure to SARS-CoV-2 (event) Yes [facility] Gender identity [facility] Sexual orientation U [facility] Alcohol intake 2023-06-19 00:00:00 2023-06-19 00:00:00 Current drinker of alcohol (finding) [facility] Tobacco Comment 2023-06-19 00:00:00 2023-06-19 00:00:00 Daily vaping Smokes cigarettes some days x 4 years [facility] Tobacco use and exposure 2023-06-19 00:00:00 2023-06-19 00:00:00 User of smokeless tobacco [facility] History of Social function 2023-06-19 00:00:00 2023-06-19 00:00:00 [facility] Alcohol Comment 2023-06-19 00:00:00 2023-06-19 00:00:00 rarely [facility] History SDOH Financial 2019-11-26 00:00:00 2019-11-26 00:00:00 5 [facility] History SDOH Food Worry 2019-11-26 00:00:00 2019-11-26 00:00:00 1 [facility] History SDOH Food Scarcity 2019-11-26 00:00:00 2019-11-26 00:00:00 1 [facility] History SDOH Transport Med 2019-11-26 00:00:00 2019-11-26 00:00:00 2 [facility] History SDOH Transport Non-Med 2019-11-26 00:00:00 2019-11-26 00:00:00 2 [facility] Sex Assigned At 2000 00:00:00 2000 00:00:00 [facility] Smoking Status Start Date Stop Date Source Occasional tobacco smoker 2023-06-19 00:00:00 [facility] Ex-smoker 2019-04-15 00:00:00 2019-04-15 00:00:00 [facility] Medications Ordered Medication Name Filled Medication Name Start Date Stop Date Current Medication? Ordering Clinician Indication Dosage Frequency Signature (SIG) Comments Components Source vit calc,iron,f olic ( VITAMIN ORAL) 06-19 09:23: 05 Yes Take by mouth. Indication s: not taking [facility] ibuprofen 600 mg tablet 06-19 09:23: 05 Yes 600mg Take 1 tablet by mouth every 8 (eight) hours as needed. [facility] aspirin 81 mg Cap 06-19 09:23: 05 Yes Take by mouth. [facility] ondansetron (ZOFRAN ODT) 4 mg disintegrat ing tablet 05-28 00:00: 00 Yes [id number] 4mg Take 1 tablet by mouth every 8 (eight) hours as needed for Nausea and Vomiting (N/V). [facility] benzonatate 100 mg capsule 05-28 00:00: 00 Yes [id number] 100mg Take 1 capsule by mouth 3 (three) times daily as needed for Cough. [facility] vit calc,iron,f olic ( VITAMIN ORAL) 11-26 19:45: 07 Yes Take by mouth. Indication s: not taking [facility] ibuprofen 600 mg tablet 11-26 19:45: 07 Yes 600mg Take 600 mg by mouth every 8 (eight) hours as needed. [facility] cefTRIAXone (ROCEPHIN) 1,000 mg in NaCl 0.9% (NS) 50 mL MINI-BAG 11-26 17:00: 00 Yes 1000mg 1,000 mg, IV Piggyback, Q12H ABX, First dose on Mon11/26/19 at 1100, Until Discontinu ed, 50 mL
Reas on for Anti-Infec tive: Documented Infection< br>Documen kingsley Infection Site: Urine
D uration of Therapy: 7 days [facility] vit calc,iron,f olic ( VITAMIN ORAL) 11-26 13:45: 07 Yes Take by mouth. Indication s: not taking [facility] ibuprofen 600 mg tablet 11-26 13:45: 07 Yes 600mg Take 600 mg by mouth every 8 (eight) hours as needed. [facility] NaCl 0.9% (NS) IV infusion 1,000 mL 11-26 08:15: 00 Yes 1000mL at 100 mL/hr, IV Infusion, CONTINUOUS , Starting Mon11/26/19 at 0215, Until Discontinu ed, Routine [facility] dicyclomine (BENTYL) capsule 20 mg 11-26 07:45: 00 Yes 20mg 20 mg, Oral, TID, First dose on Mon11/26/19 at 0145, Until Discontinu ed, Routine [facility] ketorolac (TORADOL) injection 30 mg 11-26 07:38: 40 11-26 17:50 :00 No 30mg 30 mg, Slow IV Push, Q8HPRN, 2 doses, Starting Mon11/26/19 at 0138, Until Discontinu ed, Routine, Pain (scale 7-10)
F aculty member approving [facility] acetaminoph [facility] (TYLENOL) tablet 650 mg 11-26 07:38: 24 Yes 650mg 650 mg, Oral, Q8HPRN, Starting Mon11/26/19 at 0138, Until Discontinu ed, Routine, Pain (scale 1-3), Pain (scale 4-6) [facility] ibuprofen (IBU) tablet 600 mg 11-26 07:38: 16 Yes 600mg 600 mg, Oral, Q8HPRN, Starting Mon11/26/19 at 013, Until Discontinu ed, Routine, Pain (scale 1-3), Pain (scale 4-6) [facility] cefTRIAXone (ROCEPHIN) 1,000 mg in NaCl 0.9% (NS) 50 mL MINI-BAG 11-26 07:30: 00 11-26 07:17 :00 No 1000mg 1,000 mg, IV Piggyback, ONCE, 1 dose, Mon11/26/19 at 0130, 50 mL
Reas on for Anti-Infec tive: Documented Infection< br>Documen kingsley Infection Site: Urine
D uration of Therapy: 7 days [facility] fluticasone propion-alexandr meterol (ADVAIR) 250-50 mcg/dose inhalation disk 1 Puff 11-26 07:15: 00 Yes 1{puff} 1 Puff, Inhalation , Q12H, First dose on Mon11/26/19 at 0115, Until Discontinu ed, Routine
Use approved by (Faculty and pager): ADC PROVIDER [facility] lactobacill us acidophilus (ACIDOPHILL US) 25 million cell -100 mg captab 1 tablet 11-26 07:15: 00 Yes 1{tbl} 1 tablet, Oral, BID, First dose on Mon11/26/19 at 0115, Until Discontinu ed, Routine [facility] albuterol (PROVENTIL) 2.5 mg /3 mL (0.083 %) nebulizer solution 2.5 mg 11-26 07:10: 01 Yes 2.5mg 2.5 mg, Inhalation , Q6HPRN, Starting Mon11/26/19 at 0110, Until Discontinu ed, Routine, Shortness of Breath, Wheezing, Bronchospa sm [facility] ondansetron (ZOFRAN (PF)) injection 4 mg 11-26 07:07: 37 Yes 4mg 4 mg, Slow IV Push, Q6HPRN, Starting Mon11/26/19 at 0107, Until Discontinu ed, Routine, Nausea and Vomiting (N/V) [facility] iohexol (OMNIPAQUE 350 BULK-150 mL) injection 120 mL 11-26 05:15: 00 11-26 04:57 :00 No 120mL 120 mL, Intravenou s, ONCE, 1 dose, 11/25/19 at 2315, Routine [facility] NaCl 0.9% (NS) bolus infusion 500 mL 11-26 05:15: 00 11-26 07:03 :00 No 500mL at 999 mL/hr, 500 mL, IV Infusion, ONCE, 1 dose, 11/25/19 at 2315, STAT [facility] NaCl 0.9% (NS) bolus infusion 1,000 mL 11-26 03:45: 00 11-26 06:52 :00 No 1000mL at 999 mL/hr, 1,000 mL, IV Infusion, ONCE, 1 dose, Mon11/25/19 at 2145, BAHMAN [facility] traMADol 50 mg tablet 11-26 00:00: 00 Yes [id number] 50mg Take 1 tablet by mouth every 6 (six) hours as needed for Pain (scale 7-10). [facility] cefdinir 300 mg capsule 11-26 00:00: 00 12-04 05:59 :00 No [id number] 600mg Take 2 capsules by mouth daily for 7 days. [facility] NaCl 0.9% (NS) bolus infusion 1,000 mL 06-12 04:00: 00 06-12 05:14 :00 No 1000mL at 999 mL/hr, 1,000 mL, IV Infusion, ONCE, 1 dose, Mon06/11/19 at 2300, STAT [facility] proMETHazin e (PHENERGAN) 12.5 mg in NaCl 0.9% (NS) 50 mL piggyback 06-12 04:00: 00 06-12 02:58 :00 No 12.5mg 12.5 mg, IV Piggyback, ONCE, 1 dose, Mon06/11/19 at 2300, 50 mL [facility] proMETHazin e (PHENERGAN) 25 mg suppository 06-11 00:00: 00 Yes [id number] 25mg Insert 1 Suppositor y into rectum every 6 (six) hours as needed for Nausea and Vomiting (N/V). [facility] vit calc,iron,f olic ( VITAMIN ORAL) 04-15 15:47: 19 Yes Take by mouth. [facility] Immunizations Ordered Immunization Name Filled Immunization Name Date Status Comments Source HPV 2015-07-02 00:00:00 Completed [facility] HPV 2015-07-02 00:00:00 Completed [facility] HPV 2015-07-02 00:00:00 Completed [facility] HPV 2015-07-02 00:00:00 Completed [facility] HPV 2015-07-02 00:00:00 Completed [facility] HPV 2015-07-02 00:00:00 Completed [facility] HPV 2015-07-02 00:00:00 Completed [facility] HPV 2015-07-02 00:00:00 Completed [facility] HPV 2015-07-02 00:00:00 Completed [facility] HPV 2015-07-02 00:00:00 Completed [facility] HPV 2015-07-02 00:00:00 Completed [facility] HPV 2015-07-02 00:00:00 Completed [facility] HPV 2015-07-02 00:00:00 Completed [facility] HPV 2015-07-02 00:00:00 Completed [facility] HPV 2015-07-02 00:00:00 Completed [facility] HPV 2015-07-02 00:00:00 Completed [facility] HPV 2015-07-02 00:00:00 Completed [facility] HEPATITIS A 2015-01-28 00:00:00 Completed [facility] HPV 2015-01-28 00:00:00 Completed [facility] Meningococcal Vaccine 2015-01-28 00:00:00 Completed [facility] HEPATITIS A 2015-01-28 00:00:00 Completed [facility] HPV 2015-01-28 00:00:00 Completed [facility] Meningococcal Vaccine 2015-01-28 00:00:00 Completed [facility] HEPATITIS A 2015-01-28 00:00:00 Completed [facility] HPV 2015-01-28 00:00:00 Completed [facility] Meningococcal Vaccine 2015-01-28 00:00:00 Completed [facility] HEPATITIS A 2015-01-28 00:00:00 Completed [facility] HPV 2015-01-28 00:00:00 Completed [facility] Meningococcal Vaccine 2015-01-28 00:00:00 Completed [facility] HEPATITIS A 2015-01-28 00:00:00 Completed [facility] HPV 2015-01-28 00:00:00 Completed [facility] Meningococcal Vaccine 2015-01-28 00:00:00 Completed [facility] HEPATITIS A 2015-01-28 00:00:00 Completed [facility] HPV 2015-01-28 00:00:00 Completed [facility] Meningococcal Vaccine 2015-01-28 00:00:00 Completed [facility] HEPATITIS A 2015-01-28 00:00:00 Completed [facility] HPV 2015-01-28 00:00:00 Completed [facility] Meningococcal Vaccine 2015-01-28 00:00:00 Completed [facility] HEPATITIS A 2015-01-28 00:00:00 Completed [facility] HEPATITIS A 2015-01-28 00:00:00 Completed [facility] HPV 2015-01-28 00:00:00 Completed [facility] Meningococcal Vaccine 2015-01-28 00:00:00 Completed [facility] HPV 2015-01-28 00:00:00 Completed [facility] Meningococcal Vaccine 2015-01-28 00:00:00 Completed [facility] HEPATITIS A 2015-01-28 00:00:00 Completed [facility] HPV 2015-01-28 00:00:00 Completed [facility] Meningococcal Vaccine 2015-01-28 00:00:00 Completed [facility] HEPATITIS A 2015-01-28 00:00:00 Completed [facility] HPV 2015-01-28 00:00:00 Completed [facility] Meningococcal Vaccine 2015-01-28 00:00:00 Completed [facility] HEPATITIS A 2015-01-28 00:00:00 Completed [facility] HPV 2015-01-28 00:00:00 Completed [facility] Meningococcal Vaccine 2015-01-28 00:00:00 Completed [facility] HEPATITIS A 2015-01-28 00:00:00 Completed [facility] HPV 2015-01-28 00:00:00 Completed [facility] Meningococcal Vaccine 2015-01-28 00:00:00 Completed [facility] HEPATITIS A 2015-01-28 00:00:00 Completed [facility] HPV 2015-01-28 00:00:00 Completed [facility] Meningococcal Vaccine 2015-01-28 00:00:00 Completed [facility] HEPATITIS A 2015-01-28 00:00:00 Completed [facility] HPV 2015-01-28 00:00:00 Completed [facility] Meningococcal Vaccine 2015-01-28 00:00:00 Completed [facility] HEPATITIS A 2015-01-28 00:00:00 Completed [facility] HPV 2015-01-28 00:00:00 Completed [facility] Meningococcal Vaccine 2015-01-28 00:00:00 Completed [facility] HEPATITIS A 2015-01-28 00:00:00 Completed [facility] HPV 2015-01-28 00:00:00 Completed [facility] Meningococcal Vaccine 2015-01-28 00:00:00 Completed [facility] Tdap 2010-06-07 00:00:00 Completed [facility] HEPATITIS A 2010-06-07 00:00:00 Completed [facility] HPV 2010-06-07 00:00:00 Completed [facility] Meningococcal Vaccine 2010-06-07 00:00:00 Completed [facility] Varicella (varivax)(chicken pox) 2010-06-07 00:00:00 Completed [facility] Tdap 2010-06-07 00:00:00 Completed [facility] HEPATITIS A 2010-06-07 00:00:00 Completed [facility] HPV 2010-06-07 00:00:00 Completed [facility] Meningococcal Vaccine 2010-06-07 00:00:00 Completed [facility] Varicella (varivax)(chicken pox) 2010-06-07 00:00:00 Completed [facility] Tdap 2010-06-07 00:00:00 Completed [facility] HEPATITIS A 2010-06-07 00:00:00 Completed [facility] HPV 2010-06-07 00:00:00 Completed [facility] Meningococcal Vaccine 2010-06-07 00:00:00 Completed [facility] Varicella (varivax)(chicken pox) 2010-06-07 00:00:00 Completed [facility] TDAP 2010-06-07 00:00:00 Completed [facility] HEPATITIS A 2010-06-07 00:00:00 Completed [facility] HPV 2010-06-07 00:00:00 Completed [facility] Meningococcal Vaccine 2010-06-07 00:00:00 Completed [facility] Varicella (varivax)(chicken pox) 2010-06-07 00:00:00 Completed [facility] TDAP 2010-06-07 00:00:00 Completed [facility] HEPATITIS A 2010-06-07 00:00:00 Completed [facility] Tdap 2010-06-07 00:00:00 Completed [facility] HPV 2010-06-07 00:00:00 Completed [facility] Meningococcal Vaccine 2010-06-07 00:00:00 Completed [facility] Varicella (varivax)(chicken pox) 2010-06-07 00:00:00 Completed [facility] TDAP 2010-06-07 00:00:00 Completed [facility] HEPATITIS A 2010-06-07 00:00:00 Completed [facility] HPV 2010-06-07 00:00:00 Completed [facility] Meningococcal Vaccine 2010-06-07 00:00:00 Completed [facility] Varicella (varivax)(chicken pox) 2010-06-07 00:00:00 Completed [facility] TDAP 2010-06-07 00:00:00 Completed [facility] HEPATITIS A 2010-06-07 00:00:00 Completed [facility] HEPATITIS A 2010-06-07 00:00:00 Completed [facility] HPV 2010-06-07 00:00:00 Completed [facility] Meningococcal Vaccine 2010-06-07 00:00:00 Completed [facility] Varicella (varivax)(chicken pox) 2010-06-07 00:00:00 Completed [facility] TDAP 2010-06-07 00:00:00 Completed [facility] HEPATITIS A 2010-06-07 00:00:00 Completed [facility] HPV 2010-06-07 00:00:00 Completed [facility] HPV 2010-06-07 00:00:00 Completed [facility] Meningococcal Vaccine 2010-06-07 00:00:00 Completed [facility] Varicella (varivax)(chicken pox) 2010-06-07 00:00:00 Completed [facility] Meningococcal Vaccine 2010-06-07 00:00:00 Completed [facility] TDAP 2010-06-07 00:00:00 Completed [facility] HEPATITIS A 2010-06-07 00:00:00 Completed [facility] HPV 2010-06-07 00:00:00 Completed [facility] Meningococcal Vaccine 2010-06-07 00:00:00 Completed [facility] Varicella (varivax)(chicken pox) 2010-06-07 00:00:00 Completed [facility] TDAP 2010-06-07 00:00:00 Completed [facility] HEPATITIS A 2010-06-07 00:00:00 Completed [facility] HPV 2010-06-07 00:00:00 Completed [facility] Meningococcal Vaccine 2010-06-07 00:00:00 Completed [facility] Varicella (varivax)(chicken pox) 2010-06-07 00:00:00 Completed [facility] TDAP 2010-06-07 00:00:00 Completed [facility] Varicella (varivax)(chicken pox) 2010-06-07 00:00:00 Completed [facility] HEPATITIS A 2010-06-07 00:00:00 Completed [facility] HPV 2010-06-07 00:00:00 Completed [facility] Meningococcal Vaccine 2010-06-07 00:00:00 Completed [facility] Varicella (varivax)(chicken pox) 2010-06-07 00:00:00 Completed [facility] TDAP 2010-06-07 00:00:00 Completed [facility] HEPATITIS A 2010-06-07 00:00:00 Completed [facility] HPV 2010-06-07 00:00:00 Completed [facility] Meningococcal Vaccine 2010-06-07 00:00:00 Completed [facility] Varicella (varivax)(chicken pox) 2010-06-07 00:00:00 Completed [facility] TDAP 2010-06-07 00:00:00 Completed [facility] HEPATITIS A 2010-06-07 00:00:00 Completed [facility] HPV 2010-06-07 00:00:00 Completed [facility] Meningococcal Vaccine 2010-06-07 00:00:00 Completed [facility] Varicella (varivax)(chicken pox) 2010-06-07 00:00:00 Completed [facility] TDAP 2010-06-07 00:00:00 Completed [facility] HEPATITIS A 2010-06-07 00:00:00 Completed [facility] HPV 2010-06-07 00:00:00 Completed [facility] Meningococcal Vaccine 2010-06-07 00:00:00 Completed [facility] Varicella (varivax)(chicken pox) 2010-06-07 00:00:00 Completed [facility] TDAP 2010-06-07 00:00:00 Completed [facility] HEPATITIS A 2010-06-07 00:00:00 Completed [facility] HPV 2010-06-07 00:00:00 Completed [facility] Meningococcal Vaccine 2010-06-07 00:00:00 Completed [facility] Varicella (varivax)(chicken pox) 2010-06-07 00:00:00 Completed [facility] TDAP 2010-06-07 00:00:00 Completed [facility] HEPATITIS A 2010-06-07 00:00:00 Completed [facility] HPV 2010-06-07 00:00:00 Completed [facility] Meningococcal Vaccine 2010-06-07 00:00:00 Completed [facility] Varicella (varivax)(chicken pox) 2010-06-07 00:00:00 Completed [facility] Influenza Virus Vaccine Nasal 2009-07-20 00:00:00 Completed [facility] Influenza Virus Vaccine Nasal 2009-07-20 00:00:00 Completed [facility] Influenza Virus Vaccine Nasal 2009-07-20 00:00:00 Completed [facility] Influenza Virus Vaccine Nasal 2009-07-20 00:00:00 Completed [facility] Influenza Virus Vaccine Nasal 2009-07-20 00:00:00 Completed [facility] Influenza Virus Vaccine Nasal 2009-07-20 00:00:00 Completed [facility] Influenza Virus Vaccine Nasal 2009-07-20 00:00:00 Completed [facility] Influenza Virus Vaccine Nasal 2009-07-20 00:00:00 Completed [facility] Influenza Virus Vaccine Nasal 2009-07-20 00:00:00 Completed [facility] Influenza Virus Vaccine Nasal 2009-07-20 00:00:00 Completed [facility] Influenza Virus Vaccine Nasal 2009-07-20 00:00:00 Completed [facility] Influenza Virus Vaccine Nasal 2009-07-20 00:00:00 Completed [facility] Influenza Virus Vaccine Nasal 2009-07-20 00:00:00 Completed [facility] Influenza Virus Vaccine Nasal 2009-07-20 00:00:00 Completed [facility] Influenza Virus Vaccine Nasal 2009-07-20 00:00:00 Completed [facility] Influenza Virus Vaccine Nasal 2009-07-20 00:00:00 Completed [facility] Influenza Virus Vaccine Nasal 2009-07-20 00:00:00 Completed [facility] DTAP 2002-07-29 00:00:00 Completed [facility] MMR 2002-07-29 00:00:00 Completed [facility] Polio (IPV/OPV) 2002-07-29 00:00:00 Completed [facility] DTAP 2002-07-29 00:00:00 Completed [facility] MMR 2002-07-29 00:00:00 Completed [facility] Polio (IPV/OPV) 2002-07-29 00:00:00 Completed [facility] DTAP 2002-07-29 00:00:00 Completed [facility] MMR 2002-07-29 00:00:00 Completed [facility] Polio (IPV/OPV) 2002-07-29 00:00:00 Completed [facility] DTAP 2002-07-29 00:00:00 Completed [facility] MMR 2002-07-29 00:00:00 Completed [facility] Polio (IPV/OPV) 2002-07-29 00:00:00 Completed [facility] DTAP 2002-07-29 00:00:00 Completed [facility] MMR 2002-07-29 00:00:00 Completed [facility] Polio (IPV/OPV) 2002-07-29 00:00:00 Completed [facility] DTAP 2002-07-29 00:00:00 Completed [facility] MMR 2002-07-29 00:00:00 Completed [facility] DTAP 2002-07-29 00:00:00 Completed [facility] Polio (IPV/OPV) 2002-07-29 00:00:00 Completed [facility] DTAP 2002-07-29 00:00:00 Completed [facility] MMR 2002-07-29 00:00:00 Completed [facility] Polio (IPV/OPV) 2002-07-29 00:00:00 Completed [facility] DTAP 2002-07-29 00:00:00 Completed [facility] MMR 2002-07-29 00:00:00 Completed [facility] Polio (IPV/OPV) 2002-07-29 00:00:00 Completed [facility] DTAP 2002-07-29 00:00:00 Completed [facility] MMR 2002-07-29 00:00:00 Completed [facility] MMR 2002-07-29 00:00:00 Completed [facility] Polio (IPV/OPV) 2002-07-29 00:00:00 Completed [facility] DTAP 2002-07-29 00:00:00 Completed [facility] MMR 2002-07-29 00:00:00 Completed [facility] Polio (IPV/OPV) 2002-07-29 00:00:00 Completed [facility] Polio (IPV/OPV) 2002-07-29 00:00:00 Completed [facility] DTAP 2002-07-29 00:00:00 Completed [facility] MMR 2002-07-29 00:00:00 Completed [facility] Polio (IPV/OPV) 2002-07-29 00:00:00 Completed [facility] DTAP 2002-07-29 00:00:00 Completed [facility] MMR 2002-07-29 00:00:00 Completed [facility] Polio (IPV/OPV) 2002-07-29 00:00:00 Completed [facility] DTAP 2002-07-29 00:00:00 Completed [facility] MMR 2002-07-29 00:00:00 Completed [facility] Polio (IPV/OPV) 2002-07-29 00:00:00 Completed [facility] DTAP 2002-07-29 00:00:00 Completed [facility] MMR 2002-07-29 00:00:00 Completed [facility] Polio (IPV/OPV) 2002-07-29 00:00:00 Completed [facility] DTAP 2002-07-29 00:00:00 Completed [facility] MMR 2002-07-29 00:00:00 Completed [facility] Polio (IPV/OPV) 2002-07-29 00:00:00 Completed [facility] DTAP 2002-07-29 00:00:00 Completed [facility] MMR 2002-07-29 00:00:00 Completed [facility] Polio (IPV/OPV) 2002-07-29 00:00:00 Completed [facility] DTAP 1999-05-18 00:00:00 Completed [facility] HIB 4 Dose Schedule 1999-05-18 00:00:00 Completed [facility] MMR 1999-05-18 00:00:00 Completed [facility] Polio (IPV/OPV) 1999-05-18 00:00:00 Completed [facility] Varicella (varivax)(chicken pox) 1999-05-18 00:00:00 Completed [facility] DTAP 1999-05-18 00:00:00 Completed [facility] HIB 4 Dose Schedule 1999-05-18 00:00:00 Completed [facility] MMR 1999-05-18 00:00:00 Completed [facility] Polio (IPV/OPV) 1999-05-18 00:00:00 Completed [facility] Varicella (varivax)(chicken pox) 1999-05-18 00:00:00 Completed [facility] DTAP 1999-05-18 00:00:00 Completed [facility] HIB 4 Dose Schedule 1999-05-18 00:00:00 Completed [facility] MMR 1999-05-18 00:00:00 Completed [facility] Polio (IPV/OPV) 1999-05-18 00:00:00 Completed [facility] Varicella (varivax)(chicken pox) 1999-05-18 00:00:00 Completed [facility] DTAP 1999-05-18 00:00:00 Completed [facility] HIB 4 Dose Schedule 1999-05-18 00:00:00 Completed [facility] MMR 1999-05-18 00:00:00 Completed [facility] Polio (IPV/OPV) 1999-05-18 00:00:00 Completed [facility] Varicella (varivax)(chicken pox) 1999-05-18 00:00:00 Completed [facility] DTAP 1999-05-18 00:00:00 Completed [facility] HIB 4 Dose Schedule 1999-05-18 00:00:00 Completed [facility] MMR 1999-05-18 00:00:00 Completed [facility] Polio (IPV/OPV) 1999-05-18 00:00:00 Completed [facility] Varicella (varivax)(chicken pox) 1999-05-18 00:00:00 Completed [facility] DTAP 1999-05-18 00:00:00 Completed [facility] HIB 4 Dose Schedule 1999-05-18 00:00:00 Completed [facility] DTAP 1999-05-18 00:00:00 Completed [facility] MMR 1999-05-18 00:00:00 Completed [facility] Polio (IPV/OPV) 1999-05-18 00:00:00 Completed [facility] Varicella (varivax)(chicken pox) 1999-05-18 00:00:00 Completed [facility] HIB 4 Dose Schedule 1999-05-18 00:00:00 Completed [facility] DTAP 1999-05-18 00:00:00 Completed [facility] HIB 4 Dose Schedule 1999-05-18 00:00:00 Completed [facility] MMR 1999-05-18 00:00:00 Completed [facility] Polio (IPV/OPV) 1999-05-18 00:00:00 Completed [facility] Varicella (varivax)(chicken pox) 1999-05-18 00:00:00 Completed [facility] DTAP 1999-05-18 00:00:00 Completed [facility] HIB 4 Dose Schedule 1999-05-18 00:00:00 Completed [facility] MMR 1999-05-18 00:00:00 Completed [facility] Polio (IPV/OPV) 1999-05-18 00:00:00 Completed [facility] Varicella (varivax)(chicken pox) 1999-05-18 00:00:00 Completed [facility] DTAP 1999-05-18 00:00:00 Completed [facility] HIB 4 Dose Schedule 1999-05-18 00:00:00 Completed [facility] MMR 1999-05-18 00:00:00 Completed [facility] MMR 1999-05-18 00:00:00 Completed [facility] Polio (IPV/OPV) 1999-05-18 00:00:00 Completed [facility] Varicella (varivax)(chicken pox) 1999-05-18 00:00:00 Completed [facility] DTAP 1999-05-18 00:00:00 Completed [facility] HIB 4 Dose Schedule 1999-05-18 00:00:00 Completed [facility] Polio (IPV/OPV) 1999-05-18 00:00:00 Completed [facility] MMR 1999-05-18 00:00:00 Completed [facility] Polio (IPV/OPV) 1999-05-18 00:00:00 Completed [facility] Varicella (varivax)(chicken pox) 1999-05-18 00:00:00 Completed [facility] Varicella (varivax)(chicken pox) 1999-05-18 00:00:00 Completed [facility] DTAP 1999-05-18 00:00:00 Completed [facility] HIB 4 Dose Schedule 1999-05-18 00:00:00 Completed [facility] MMR 1999-05-18 00:00:00 Completed [facility] Polio (IPV/OPV) 1999-05-18 00:00:00 Completed [facility] Varicella (varivax)(chicken pox) 1999-05-18 00:00:00 Completed [facility] DTAP 1999-05-18 00:00:00 Completed [facility] HIB 4 Dose Schedule 1999-05-18 00:00:00 Completed [facility] MMR 1999-05-18 00:00:00 Completed [facility] Polio (IPV/OPV) 1999-05-18 00:00:00 Completed [facility] Varicella (varivax)(chicken pox) 1999-05-18 00:00:00 Completed [facility] DTAP 1999-05-18 00:00:00 Completed [facility] HIB 4 Dose Schedule 1999-05-18 00:00:00 Completed [facility] MMR 1999-05-18 00:00:00 Completed [facility] Polio (IPV/OPV) 1999-05-18 00:00:00 Completed [facility] Varicella (varivax)(chicken pox) 1999-05-18 00:00:00 Completed [facility] DTAP 1999-05-18 00:00:00 Completed [facility] HIB 4 Dose Schedule 1999-05-18 00:00:00 Completed [facility] MMR 1999-05-18 00:00:00 Completed [facility] Polio (IPV/OPV) 1999-05-18 00:00:00 Completed [facility] Varicella (varivax)(chicken pox) 1999-05-18 00:00:00 Completed [facility] DTAP 1999-05-18 00:00:00 Completed [facility] HIB 4 Dose Schedule 1999-05-18 00:00:00 Completed [facility] MMR 1999-05-18 00:00:00 Completed [facility] Polio (IPV/OPV) 1999-05-18 00:00:00 Completed [facility] Varicella (varivax)(chicken pox) 1999-05-18 00:00:00 Completed [facility] DTAP 1999-05-18 00:00:00 Completed [facility] HIB 4 Dose Schedule 1999-05-18 00:00:00 Completed [facility] MMR 1999-05-18 00:00:00 Completed [facility] Polio (IPV/OPV) 1999-05-18 00:00:00 Completed [facility] Varicella (varivax)(chicken pox) 1999-05-18 00:00:00 Completed [facility] Hep B, Adol or Pedi Dosage 1999-01-12 00:00:00 Completed [facility] Hep B, Adol or Pedi Dosage 1999-01-12 00:00:00 Completed [facility] Hep B, Adol or Pedi Dosage 1999-01-12 00:00:00 Completed [facility] Hep B, Adol or Pedi Dosage 1999-01-12 00:00:00 Completed [facility] Hep B, Adol or Pedi Dosage 1999-01-12 00:00:00 Completed [facility] Hep B, Adol or Pedi Dosage 1999-01-12 00:00:00 Completed [facility] Hep B, Adol or Pedi Dosage 1999-01-12 00:00:00 Completed [facility] Hep B, Adol or Pedi Dosage 1999-01-12 00:00:00 Completed [facility] Hep B, Adol or Pedi Dosage 1999-01-12 00:00:00 Completed [facility] Hep B, Adol or Pedi Dosage 1999-01-12 00:00:00 Completed [facility] Hep B, Adol or Pedi Dosage 1999-01-12 00:00:00 Completed [facility] Hep B, Adol or Pedi Dosage 1999-01-12 00:00:00 Completed [facility] Hep B, Adol or Pedi Dosage 1999-01-12 00:00:00 Completed [facility] Hep B, Adol or Pedi Dosage 1999-01-12 00:00:00 Completed [facility] Hep B, Adol or Pedi Dosage 1999-01-12 00:00:00 Completed [facility] Hep B, Adol or Pedi Dosage 1999-01-12 00:00:00 Completed [facility] Hep B, Adol or Pedi Dosage 1999-01-12 00:00:00 Completed [facility] DTAP 1998 00:00:00 Completed [facility] HIB 4 Dose Schedule 1998 00:00:00 Completed [facility] DTAP 1998 00:00:00 Completed [facility] HIB 4 Dose Schedule 1998 00:00:00 Completed [facility] DTAP 1998 00:00:00 Completed [facility] HIB 4 Dose Schedule 1998 00:00:00 Completed [facility] DTAP 1998 00:00:00 Completed [facility] HIB 4 Dose Schedule 1998 00:00:00 Completed [facility] DTAP 1998 00:00:00 Completed [facility] HIB 4 Dose Schedule 1998 00:00:00 Completed [facility] DTAP 1998 00:00:00 Completed [facility] DTAP 1998 00:00:00 Completed [facility] HIB 4 Dose Schedule 1998 00:00:00 Completed [facility] HIB 4 Dose Schedule 1998 00:00:00 Completed [facility] DTAP 1998 00:00:00 Completed [facility] HIB 4 Dose Schedule 1998 00:00:00 Completed [facility] DTAP 1998 00:00:00 Completed [facility] HIB 4 Dose Schedule 1998 00:00:00 Completed [facility] DTAP 1998 00:00:00 Completed [facility] HIB 4 Dose Schedule 1998 00:00:00 Completed [facility] DTAP 1998 00:00:00 Completed [facility] HIB 4 Dose Schedule 1998 00:00:00 Completed [facility] DTAP 1998 00:00:00 Completed [facility] HIB 4 Dose Schedule 1998 00:00:00 Completed [facility] DTAP 1998 00:00:00 Completed [facility] HIB 4 Dose Schedule 1998 00:00:00 Completed [facility] DTAP 1998 00:00:00 Completed [facility] HIB 4 Dose Schedule 1998 00:00:00 Completed [facility] DTAP 1998 00:00:00 Completed [facility] HIB 4 Dose Schedule 1998 00:00:00 Completed [facility] DTAP 1998 00:00:00 Completed [facility] HIB 4 Dose Schedule 1998 00:00:00 Completed [facility] DTAP 1998 00:00:00 Completed [facility] HIB 4 Dose Schedule 1998 00:00:00 Completed [facility] DTAP 1998 00:00:00 Completed [facility] HIB 4 Dose Schedule 1998 00:00:00 Completed [facility] Polio (IPV/OPV) 1998 00:00:00 Completed [facility] DTAP 1998 00:00:00 Completed [facility] HIB 4 Dose Schedule 1998 00:00:00 Completed [facility] Polio (IPV/OPV) 1998 00:00:00 Completed [facility] DTAP 1998 00:00:00 Completed [facility] HIB 4 Dose Schedule 1998 00:00:00 Completed [facility] Polio (IPV/OPV) 1998 00:00:00 Completed [facility] DTAP 1998 00:00:00 Completed [facility] HIB 4 Dose Schedule 1998 00:00:00 Completed [facility] Polio (IPV/OPV) 1998 00:00:00 Completed [facility] DTAP 1998 00:00:00 Completed [facility] HIB 4 Dose Schedule 1998 00:00:00 Completed [facility] Polio (IPV/OPV) 1998 00:00:00 Completed [facility] DTAP 1998 00:00:00 Completed [facility] DTAP 1998 00:00:00 Completed [facility] HIB 4 Dose Schedule 1998 00:00:00 Completed [facility] Polio (IPV/OPV) 1998 00:00:00 Completed [facility] HIB 4 Dose Schedule 1998 00:00:00 Completed [facility] DTAP 1998 00:00:00 Completed [facility] HIB 4 Dose Schedule 1998 00:00:00 Completed [facility] Polio (IPV/OPV) 1998 00:00:00 Completed [facility] DTAP 1998 00:00:00 Completed [facility] HIB 4 Dose Schedule 1998 00:00:00 Completed [facility] Polio (IPV/OPV) 1998 00:00:00 Completed [facility] DTAP 1998 00:00:00 Completed [facility] HIB 4 Dose Schedule 1998 00:00:00 Completed [facility] Polio (IPV/OPV) 1998 00:00:00 Completed [facility] DTAP 1998 00:00:00 Completed [facility] Polio (IPV/OPV) 1998 00:00:00 Completed [facility] HIB 4 Dose Schedule 1998 00:00:00 Completed [facility] Polio (IPV/OPV) 1998 00:00:00 Completed [facility] DTAP 1998 00:00:00 Completed [facility] HIB 4 Dose Schedule 1998 00:00:00 Completed [facility] Polio (IPV/OPV) 1998 00:00:00 Completed [facility] DTAP 1998 00:00:00 Completed [facility] HIB 4 Dose Schedule 1998 00:00:00 Completed [facility] Polio (IPV/OPV) 1998 00:00:00 Completed [facility] DTAP 1998 00:00:00 Completed [facility] HIB 4 Dose Schedule 1998 00:00:00 Completed [facility] Polio (IPV/OPV) 1998 00:00:00 Completed [facility] DTAP 1998 00:00:00 Completed [facility] HIB 4 Dose Schedule 1998 00:00:00 Completed [facility] Polio (IPV/OPV) 1998 00:00:00 Completed [facility] DTAP 1998 00:00:00 Completed [facility] HIB 4 Dose Schedule 1998 00:00:00 Completed [facility] Polio (IPV/OPV) 1998 00:00:00 Completed [facility] DTAP 1998 00:00:00 Completed [facility] HIB 4 Dose Schedule 1998 00:00:00 Completed [facility] Polio (IPV/OPV) 1998 00:00:00 Completed [facility] DTAP 1998 00:00:00 Completed [facility] HIB 4 Dose Schedule 1998 00:00:00 Completed [facility] Hep B, Adol or Pedi Dosage 1998 00:00:00 Completed [facility] Polio (IPV/OPV) 1998 00:00:00 Completed [facility] DTAP 1998 00:00:00 Completed [facility] HIB 4 Dose Schedule 1998 00:00:00 Completed [facility] Hep B, Adol or Pedi Dosage 1998 00:00:00 Completed [facility] Polio (IPV/OPV) 1998 00:00:00 Completed [facility] DTAP 1998 00:00:00 Completed [facility] HIB 4 Dose Schedule 1998 00:00:00 Completed [facility] Hep B, Adol or Pedi Dosage 1998 00:00:00 Completed [facility] Polio (IPV/OPV) 1998 00:00:00 Completed [facility] DTAP 1998 00:00:00 Completed [facility] HIB 4 Dose Schedule 1998 00:00:00 Completed [facility] Hep B, Adol or Pedi Dosage 1998 00:00:00 Completed [facility] Polio (IPV/OPV) 1998 00:00:00 Completed [facility] DTAP 1998 00:00:00 Completed [facility] HIB 4 Dose Schedule 1998 00:00:00 Completed [facility] Hep B, Adol or Pedi Dosage 1998 00:00:00 Completed [facility] Polio (IPV/OPV) 1998 00:00:00 Completed [facility] DTAP 1998 00:00:00 Completed [facility] DTAP 1998 00:00:00 Completed [facility] HIB 4 Dose Schedule 1998 00:00:00 Completed [facility] Hep B, Adol or Pedi Dosage 1998 00:00:00 Completed [facility] Polio (IPV/OPV) 1998 00:00:00 Completed [facility] HIB 4 Dose Schedule 1998 00:00:00 Completed [facility] DTAP 1998 00:00:00 Completed [facility] HIB 4 Dose Schedule 1998 00:00:00 Completed [facility] Hep B, Adol or Pedi Dosage 1998 00:00:00 Completed [facility] Polio (IPV/OPV) 1998 00:00:00 Completed [facility] Hep B, Adol or Pedi Dosage 1998 00:00:00 Completed [facility] DTAP 1998 00:00:00 Completed [facility] HIB 4 Dose Schedule 1998 00:00:00 Completed [facility] Hep B, Adol or Pedi Dosage 1998 00:00:00 Completed [facility] Polio (IPV/OPV) 1998 00:00:00 Completed [facility] DTAP 1998 00:00:00 Completed [facility] HIB 4 Dose Schedule 1998 00:00:00 Completed [facility] Hep B, Adol or Pedi Dosage 1998 00:00:00 Completed [facility] Polio (IPV/OPV) 1998 00:00:00 Completed [facility] Polio (IPV/OPV) 1998 00:00:00 Completed [facility] DTAP 1998 00:00:00 Completed [facility] HIB 4 Dose Schedule 1998 00:00:00 Completed [facility] Hep B, Adol or Pedi Dosage 1998 00:00:00 Completed [facility] Polio (IPV/OPV) 1998 00:00:00 Completed [facility] DTAP 1998 00:00:00 Completed [facility] HIB 4 Dose Schedule 1998 00:00:00 Completed [facility] Hep B, Adol or Pedi Dosage 1998 00:00:00 Completed [facility] Polio (IPV/OPV) 1998 00:00:00 Completed [facility] DTAP 1998 00:00:00 Completed [facility] HIB 4 Dose Schedule 1998 00:00:00 Completed [facility] Hep B, Adol or Pedi Dosage 1998 00:00:00 Completed [facility] Polio (IPV/OPV) 1998 00:00:00 Completed [facility] DTAP 1998 00:00:00 Completed [facility] HIB 4 Dose Schedule 1998 00:00:00 Completed [facility] Hep B, Adol or Pedi Dosage 1998 00:00:00 Completed [facility] Polio (IPV/OPV) 1998 00:00:00 Completed [facility] DTAP 1998 00:00:00 Completed [facility] HIB 4 Dose Schedule 1998 00:00:00 Completed [facility] Hep B, Adol or Pedi Dosage 1998 00:00:00 Completed [facility] Polio (IPV/OPV) 1998 00:00:00 Completed [facility] DTAP 1998 00:00:00 Completed [facility] HIB 4 Dose Schedule 1998 00:00:00 Completed [facility] Hep B, Adol or Pedi Dosage 1998 00:00:00 Completed [facility] Polio (IPV/OPV) 1998 00:00:00 Completed [facility] DTAP 1998 00:00:00 Completed [facility] HIB 4 Dose Schedule 1998 00:00:00 Completed [facility] Hep B, Adol or Pedi Dosage 1998 00:00:00 Completed [facility] Polio (IPV/OPV) 1998 00:00:00 Completed [facility] Hep B, Adol or Pedi Dosage 1998 00:00:00 Completed [facility] Hep B, Adol or Pedi Dosage 1998 00:00:00 Completed [facility] Hep B, Adol or Pedi Dosage 1998 00:00:00 Completed [facility] Hep B, Adol or Pedi Dosage 1998 00:00:00 Completed [facility] Hep B, Adol or Pedi Dosage 1998 00:00:00 Completed [facility] Hep B, Adol or Pedi Dosage 1998 00:00:00 Completed [facility] Hep B, Adol or Pedi Dosage 1998 00:00:00 Completed [facility] Hep B, Adol or Pedi Dosage 1998 00:00:00 Completed [facility] Hep B, Adol or Pedi Dosage 1998 00:00:00 Completed [facility] Hep B, Adol or Pedi Dosage 1998 00:00:00 Completed [facility] Hep B, Adol or Pedi Dosage 1998 00:00:00 Completed [facility] Hep B, Adol or Pedi Dosage 1998 00:00:00 Completed [facility] Hep B, Adol or Pedi Dosage 1998 00:00:00 Completed [facility] Hep B, Adol or Pedi Dosage 1998 00:00:00 Completed [facility] Hep B, Adol or Pedi Dosage 1998 00:00:00 Completed [facility] Hep B, Adol or Pedi Dosage 1998 00:00:00 Completed [facility] Hep B, Adol or Pedi Dosage 1998 00:00:00 Completed [facility] TDAP Unknown Completed [facility] HPV Unknown Completed [facility] DTAP Unknown Completed [facility] DTAP Unknown Completed [facility] DTAP Unknown Completed [facility] DTAP Unknown Completed [facility] DTAP Unknown Completed [facility] HIB 4 Dose Schedule Unknown Completed [facility] HIB 4 Dose Schedule Unknown Completed [facility] HIB 4 Dose Schedule Unknown Completed [facility] HIB 4 Dose Schedule Unknown Completed [facility] HEPATITIS A Unknown Completed [facility] HEPATITIS A Unknown Completed [facility] Hep B, Adol or Pedi Dosage Unknown Completed [facility] Hep B, Adol or Pedi Dosage Unknown Completed [facility] Hep B, Adol or Pedi Dosage Unknown Completed [facility] HPV Unknown Completed [facility] HPV Unknown Completed [facility] Meningococcal Vaccine Unknown Completed [facility] Meningococcal Vaccine Unknown Completed [facility] MMR Unknown Completed [facility] MMR Unknown Completed [facility] Polio (IPV/OPV) Unknown Completed [facility] Polio (IPV/OPV) Unknown Completed [facility] Polio (IPV/OPV) Unknown Completed [facility] Polio (IPV/OPV) Unknown Completed [facility] Varicella (varivax)(chicken pox) Unknown Completed [facility] Varicella (varivax)(chicken pox) Unknown Completed [facility] Influenza Virus Vaccine Nasal Unknown Completed [facility] Vital Signs Vital Name Observation Time Observation Value Comments S ource Systolic blood pressure 2023-06-19 13:51:00 109 mm[Hg] [facility] Diastolic blood pressure 2023-06-19 13:51:00 78 mm[Hg] [facility] Heart rate 2023-06-19 13:51:00 85 /min [facility] Body temperature 2023-06-19 13:51:00 36.61 Shara [facility] Respiratory rate 2023-06-19 13:51:00 20 /min [facility] Body height 2023-06-19 13:51:00 167.6 cm [facility] Body weight 2023-06-19 13:51:00 109.43 kg [facility] BMI 2023-06-19 13:51:00 38.94 kg/m2 [facility] Heart rate 2021-10-31 19:43:00 100 /min [facility] Body temperature 2021-10-31 19:43:00 37.28 Shara [facility] Respiratory rate 2021-10-31 19:43:00 17 /min [facility] Body weight 2021-10-31 19:43:00 90.719 kg [facility] BMI 2021-10-31 19:43:00 32.28 kg/m2 [facility] Oxygen saturation in Arterial blood by Pulse oximetry 2021-10-31 19:43:00 100 /min [facility] Systolic blood pressure 2021-10-14 16:15:00 139 mm[Hg] [facility] Diastolic blood pressure 2021-10-14 16:15:00 92 mm[Hg] [facility] Heart rate 2021-10-14 16:15:00 107 /min [facility] Body temperature 2021-10-14 16:15:00 36.67 Shara [facility] Respiratory rate 2021-10-14 16:15:00 18 /min [facility] Body height 2021-10-14 16:15:00 167.6 cm [facility] Body weight 2021-10-14 16:15:00 90.719 kg [facility] BMI 2021-10-14 16:15:00 32.28 kg/m2 [facility] Oxygen saturation in Arterial blood by Pulse oximetry 2021-10-14 16:15:00 97 /min [facility] Systolic blood pressure 2021-05-28 20:00:00 118 mm[Hg] [facility] Diastolic blood pressure 2021-05-28 20:00:00 63 mm[Hg] [facility] Heart rate 2021-05-28 20:00:00 78 /min [facility] Body temperature 2021-05-28 20:00:00 37.17 Shara [facility] Respiratory rate 2021-05-28 20:00:00 17 /min [facility] Oxygen saturation in Arterial blood by Pulse oximetry 2021-05-28 20:00:00 99 /min [facility] Body height 2021-05-28 18:48:00 167.6 cm [facility] Body weight 2021-05-28 18:48:00 103.42 kg [facility] BMI 2021-05-28 18:48:00 36.80 kg/m2 [facility] Systolic blood pressure 2019-11-26 18:00:00 116 mm[Hg] [facility] Diastolic blood pressure 2019-11-26 18:00:00 61 mm[Hg] [facility] Heart rate 2019-11-26 18:00:00 61 /min [facility] Body temperature 2019-11-26 18:00:00 36.39 Shara [facility] Respiratory rate 2019-11-26 18:00:00 18 /min [facility] Oxygen saturation in Arterial blood by Pulse oximetry 2019-11-26 16:00:00 96 /min [facility] Body height 2019-11-26 03:17:00 167.6 cm [facility] Body weight 2019-11-26 03:17:00 83.915 kg [facility] BMI 2019-11-26 03:17:00 29.86 kg/m2 [facility] Systolic blood pressure 2019-06-12 03:00:00 106 mm[Hg] [facility] Diastolic blood pressure 2019-06-12 03:00:00 82 mm[Hg] [facility] Heart rate 2019-06-12 03:00:00 74 /min [facility] Respiratory rate 2019-06-12 03:00:00 20 /min [facility] Oxygen saturation in Arterial blood by Pulse oximetry 2019-06-12 03:00:00 99 /min [facility] Body temperature 2019-06-12 02:29:00 36.78 Shara [facility] Body height 2019-06-12 02:29:00 167.6 cm [facility] Body weight 2019-06-12 02:29:00 77.111 kg [facility] BMI 2019-06-12 02:29:00 27.44 kg/m2 [facility] Procedures Procedure Date / Time Performed Performing Clinician Source THYROID STIMULATING HORMONE 2023-06-19 15:30:00 [facility] COMP. METABOLIC PANEL (81401) 2023-06-19 15:30:00 [facility] CBC WITH DIFF 2023-06-19 15:30:00 [facility] GLYCOSYLATED HEMOGLOBIN (A1C) 2023-06-19 15:30:00 [facility] HEPATITIS B SURFACE ANTIGEN 2023-06-19 15:30:00 [place] [facility] HCV ANTIBODY 2023-06-19 15:30:00 [place] Marilyn [facility] GC & CHLAMYDIA AMPLIFIED ASSAY 2023-06-19 15:30:00 Marilyn Sandoval [facility] HSV 1 AND 2 GLYCOPROTEIN G IGG 2023-06-19 15:30:00 Marilyn Sandoval [facility] HIV 1/2 AG-AB WITH REFLEX 2023-06-19 15:30:00 Marilyn Sandoval [facility] TRICHOMONAS AMPLIFIED ASSAY 2023-06-19 15:30[facility]CP 2023-06-19 15:30:00 Marilyn Sandoval [facility] SYPHILIS IGG/IGM 2023-06-19 15:30:00 Marilyn Sandoval [facility] POCT TEST 2023-06-19 14:56:00 Marilyn Sandoval [facility] ASSIGNMENT OF BENEFITS 2023-06-19 13:19:54 Docto r Unassigned, [place] [facility] CONSENT/REFUSAL FOR DIAGNOSIS AND TREATMENT 2021-10-31 19:26:18 Doctor Unassigned, [place] [facility] NOTICE OF PRIVACY PRACTICES 2021-10-14 16:05:53 Doctor Unassigned, [place] [facility] CONSENT/REFUSAL FOR DIAGNOSIS AND TREATMENT 2021-10-14 16:05:39 Doctor Unassigned, [place] [facility] POCT TEST 2021-05-28 19:09:00 Elodia Gomez [facility] CONSENT/REFUSAL FOR DIAGNOSIS AND TREATMENT 2021-05-28 18:37:11 Doctor Unassigned, [place] [facility] MAGNESIUM 2019-11-26 09:59:00 [facility] COMP. METABOLIC PANEL (95974) 2019-11-26 09:59:00 Josué Bello [facility] CBC WITH DIFFERENTIAL 2019-11-26 09:59:00 Home Bello [facility] CT ABDOMEN PELVIS W CONTRAST 2019-11-26 05:01:56 Gianluca Bustos [facility] LACTIC ACID WHOLE BLOOD 2019-11-26 04:21:00 Dominic Bustos [facility] URINALYSIS 2019-11-26 04:12:00 Gianluca Bustos [facility] XR CHEST 2 VW 2019-11-26 04:03:04 Gianluca Bustos [facility] HEPATIC FUNCTION PANEL (95716) (ALB,T.PRO,BILI T,BU/BC,ALT,AST,ALK PHOS) 2019-11-26 03:38:00 Gianluca Bustos [facility] BASIC METABOLIC PANEL (NA, K, CL, CO2, GLUCOSE, BUN, CREATININE, CA) 2019-11-26 03:38:00 Gianluca Bustos [facility] SEDIMENTATION RATE 2019-11-26 03:38:00 Josué Bello [facility] CBC WITH DIFFERENTIAL 2019-11-26 03:38:00 Gianluca Bustos [facility] GLYCOSYLATED HEMOGLOBIN (A1C) 2019-11-26 03:38:00 Josué Bello [facility] ADC,CLC OR LCC ONLY - INFLUENZA A & B DIRECT ANTIGEN 2019-11-26 03:38:00 Gianluca Bustos [facility] EKG-12 LEAD 2019-11-26 03:35:39 Gianluca Bustos [facility] CONSENT/REFUSAL FOR DIAGNOSIS AND TREATMENT 2019-11-26 03:16:05 Doctor Unassigned, [place] [facility] [id number] 2019-11-14 00:00:00 GILJE.01 [facility] [id number] 2019-11-14 00:00:00 GILJE.01 [facility] [id number] 2019-11-14 00:00:00 GILJE.01 [facility] [id number] 2019-11-14 00:00:00 GILJE.01 [facility] [id number] 2019-11-14 00:00:00 GILJE.01 [facility] LIPASE 2019-06-12 02:55:00 Twila Foley [facility] COMP. METABOLIC PANEL (61783) 2019-06-12 02:55:00 Twila Foley [facility] TOTAL BETA HCG ASSAY 2019-06-12 02:55:00 Earline Pace [facility] CBC WITH DIFFERENTIAL 2019-06-12 02:55:00 Evie Foley [facility] URINALYSIS 2019-06-12 02:55:00 Twila Foley [facility] NOTICE OF PRIVACY PRACTICES 2019-06-12 02:25:19 Doctor Unassigned, [place] [facility] CONSENT/REFUSAL FOR DIAGNOSIS AND TREATMENT 2019-06-12 02:24:56 Doctor Unassigned, [place] [facility] Encounters Start Date/Time End Date/Time Encounter Type Admission Type Attending Clinicians Care Facility Care Department Encounter ID Source 2022-12-29 12:07:[address] [facility] [id number] [facility] 2021-08-30 12:03:28 Emergency [facility] [id number] [facility] 2019-12-04 13:05:00 Inpatient Bonnie Kaba [facility] [id number] [facility] 2019-11-13 17:33:00 Inpatient Bonnie Kaba [facility] [id number] [facility] 2023-07-10 08:00:00 2023-07-10 08:00:00 Outpatient MARILYN LOPEZ [facility] [id number] [facility] 2023-06-27 00:00:00 2023-06-27 00:00:00 Telephone Marilyn Sandoval [facility] MATERNAL & CHILD [facility] ..840.114 350.1.13.10 4.2.7.2.686 [id number] [facility] 2023-06-20 00:00:00 2023-06-20 00:00:00 Telephone Anna Aparicio [facility]ILD [facility] ..840.114 350.1.13.10 4.2.7.2.686 [id number] [facility] 2023-06-20 00:00:00 2023-06-20 00:00:00 Patient Secure Msg Doctor Unassigned, [place] [facility] 1..114 350.1.13.10 4.2.7.2.686 [id number] [facility] 2023-06-19 08:45:00 2023-06-19 10:32:44 [facility] [id number] 2023-06-19 08:45:00 2023-06-19 10:32:44 Office Visit Provider, Sergochantonio Sandoval [facility]ILD [facility] 1..114 350.1.13.10 4.2.7.2.686 [id number] [facility] 2023-06-19 08:45:00 2023-06-19 08:45:00 Outpatient R [facility] [id number] [facility] 2023-06-19 00:00:00 2023-06-19 00:00:00 Orders Only Doctor Unassigned, [place] [facility] 1..114 350.1.13.10 4.2.7.2.686 [id number] [facility] 2023-06-13 00:00:00 2023-06-13 00:00:00 Telephone Deandre Ramirez [facility]ILD [facility] 1..114 350.1.13.10 4.2.7.2.686 [id number] [facility] 2021-11-01 00:00:00 2021-11-01 00:00:00 Letter (Out) Dahlia Gardner [facility] 1..114 350.1.13.10 4.2.7.2.686 [id number] [facility] 2021-10-31 13:44:00 2021-10-31 14:15:00 Emergency SUKHI PLATT [facility] ERT [id number] [facility] 2021-10-31 13:44:00 2021-10-31 14:15:00 Emergency Isaac Mcmanus Rania [facility] 1.2.840.114 350.1.13.10 4.2.7.2.686 [id number] [facility] 2021-10-14 10:17:00 2021-10-14 11:20:00 Emergency SAW BAIRES [facility] ERT [id number] [facility] 2021-10-14 10:17:00 2021-10-14 11:20:00 Emergency Saw Oshea [facility] 1.2.840.114 350.1.13.10 4.2.7.2.686 [id number] [facility] 2021-10-14 00:00:00 2021-10-14 00:00:00 Orders Only Doctor Unassigned, [place] [facility] 1.2.840.114 350.1.13.10 4.2.7.2.686 [id number] [facility] 2021-05-28 13:50:00 2021-05-28 15:09:00 Emergency [facility] 1.2.840.114 350.1.13.10 4.2.7.2.686 [id number] [facility] 2020-01-23 16:00:00 2020-01-23 16:00:00 Outpatient IBNG DOVER [facility] [id number] [facility] 2019-11-27 00:00:00 2019-11-27 00:00:00 Transition of Care Mery Lea 1.2.840.114 350.1.13.10 4.2.7.2.686 [id number] [facility] 2019-11-27 00:00:00 2019-11-27 00:00:00 Transition of Care Leonora Mery Tirado 1.2.840.114 350.1.13.10 4.2.7.2.686 [id number] 2019-11-25 21:08:59 2019-11-26 13:45:00 Hospital Encounter Gianluca [facility]ustos [facility] 1.2.840.114 350.1.13.10 4.2.7.2.686 [id number] [facility] 2019-11-14 11:17:00 2019-11-14 11:17:00 Outpatient Bonnie Kaba [facility] [id number] [facility] 2019-11-13 21:13:00 2019-11-13 21:13:00 Outpatient UNKNOWN [facility] REF [id number] [facility] 2019-06-11 21:31:13 2019-06-12 00:30:00 Emergency [facility] 1.2.840.114 350.1.13.10 4.2.7.2.686 [id number] [facility] Results Test Description Test Time Test Comments Results Result Co mments Source [facility]C)2023-06-20 19:32:42* Test Item Value Reference Range Interpretation Comme nts HGB A1C (test code = 4548-4) 5.2 % 4.0-5.7 KINGSLEY (test code = KINGSLEY) Reference RangesNormal: <5.7%Prediabetes: 5.7 - 6.4%Diabetes: > 6.5% Lab Interpretation (test code = 12387-5) Normal [facility] SURFACE [id number] 19:31:51 * Test Item Value Reference Range Interpretation Comme nts HBsAg Semi-Quantitative (charu t code = 5195-3) 0.10 Negative [facility] [id number] 19:31:50 * Test Item Value Reference Range Interpretation Comme [facility] TSH (test code = 9402418827) 2.21 See_Comment [Automated messa ge] The system which generated this result transmitted reference range: 0.45 - 4.70 mIU/L. The reference range was not used to interpret this result as normal/abnormal. Lab Interpretation (test code = 27746-1) Normal [facility] 2 GLYCOPROTEIN G [id number] 16:59:22* Test Item Value Reference Range Interpretation Comme nts HSV I IgG (test code = 5749215541) Negative Negative HSV II IgG (test code = 0307108415) Negative Negative KINGSLEY (test code = KINGSLEY) Positive - IgG ant ibody to HSV 1 and/or HSV 2 detected.Negative - No HSV 1 and/or HSV 2 antibody detected.Equivocal - A second sample should be sent. [id number]/[id number] 16:01:53* Test Item Value Reference Range Interpretation Comme [facility] Syphilis IgG/IgM (test code = 75649-3) Non-reactive Non-reactive KINGSLEY (test code = KINGSLEY) Non-reactive - No serologic evidence of T. pallidum infection. Cannot exclude incubating or early syphilis. Submit a second specimen in 2-4 weeks if syphilis is clinically suspected. Equivocal - Further testing to follow. Reactive - Further testing to follow. Lab Interpretation (test code = 80731-6) [facility] AG-AB WITH [id number] 13:31:21* Test Item Value Reference Range Interpretation Comme [facility] HIV Semi-quantitative (test code = 00548-3) 0.10 Negative KINGSLEY (test code = KINGSLEY) Non-reactive for HIV-1 antigen and HIV-1/HIV-2 antibodies. ?No laboratory evidence of HIV infection. ?Repeat in 2-4 weeks if acute HIV infection is suspected. [facility] (60098)2023-06-20 12:25:11* Test Item Value Reference Range Interpretation Comme [facility] NA (test code = 3009301524) 139 mmol/L 135-145 K (test code = 6900873366) 4.6 mmol/L 3.5-5.0 CL (test code = 6273247797) 105 mmol/L 98-108 CO2 TOTAL (test code = 0613691896) 18 mmol/L 23-31 L AGAP (test code = 5025376406) 16 2-16 BUN (test code = 9968461389) 14 mg/dL 7-23 GLUCOSE (test code = 6446908787) 87 mg/dL 70-110 CREATININE (test code = 8811839543) 0.75 mg/dL 0.50-1.04 TOTAL BILI (test code = 0615823484) 0.2 mg/dL 0.1-1.1 CALCIUM (test code = 5144581677) 9.7 mg/dL 8.6-10.6 T PROTEIN (test code = 4113229702) 8.6 g/dL 6.3-8.2 H ALBUMIN (test code = 6838379208) 4.7 g/dL 3.5-5.0 ALK PHOS (test code = 3082281714) 111 U/L 34-122 ALTv (test code = 1742-6) 24 U/L 5-35 AST(SGOT) (test code = 0646078859) 23 U/L 13-40 eGFR (test code = 8836794999) 94.2 mL/min/1.73m2 KINGSLEY (test code = KINGSLEY) Association of Glomerular Filtration Rate (GFR) and Staging of Kidney Disease* + --+ --+ ------+| GFR (mL/min/1.73 m2) ?| With Kidney Damage ?| ?Without Kidney Damage+ --------+ --------+ +| ?>90 ?| ?Stage one ?| ? Normal ?+ ---+ ---+ -------+| ?60-89 ?| ?Stage two ?| ? Decreased GFR ? + --+ --+ ------+| ?30-59 ?| ?Stage three ?| ? Stage three ? + --+ --+ ------+| ?15-29 ?| ?Stage four ? | ? Stage four ?+ ---+ ---+ -------+| ?<15 (or dialysis) ? ?| ?Stage five ? | ? Stage five ?+ ---+ ---+ -------+ *Each stage assumes the associated GFR level has been in effect for at least three months. ?Stages 1 to 5, with or without kidney disease, indicate chronic kidney disease. Notes: Determination of stages one and two (with eGFR >59mL/min/1.73 m2) requires estimation of kidney damage for at least three months as defined by structural or functional abnormalities of the kidney, manifested by either:Pathological abnormalities or Markers of kidney damage (including abnormalities in the composition of the blood or urine or abnormalities in imaging tests). Lab Interpretation (test code = 50299-8) Abnormal [facility] WITH [id number] 06:50:51* Test Item Value Reference Range Interpretation Comme nts WBC (test code = 6690-2) 10.67 See_Comment [Automated [employer]] The system which generated this result transmitted reference range: 4.30 - 11.10 10*3/?L. The reference range was not used to interpret this result as normal/abnormal. RBC (test code = 789-8) 4.75 See_Comment [4 the stars] The system which generated this result transmitted reference range: 3.93 - 5.25 10*6/?L. The reference range was not used to interpret this result as normal/abnormal. HGB (test code = 718-7) 12.8 g/dL 11.6-15.0 HCT (test code = 4544-3) 40.6 % 35.7-45.2 MCV (test code = 787-2) 85.5 fL 80.6-95.5 MCH (test code = 785-6) 26.9 pg 25.9-32.8 MCHC (test code = 786-4) 31.5 g/dL 31.6-35.1 L RDW-SD (test code = 84970-6) 46.5 fL 39.0-49.9 RDW-CV (test code = 788-0) 14.7 % 12.0-15.5 PLT (test code = 777-3) 437 See_Comment H [Automated [employer]] The system which generated this result transmitted reference range: 166 - 358 10*3/?L. The reference range was not used to interpret this result as normal/abnormal. MPV (test code = 62969-9) 10.4 fL 9.5-12.9 NRBC/100 WBC (test code = 5963706970) 0.0 See_Comment [Automated me ssage] The system which generated this result transmitted reference range: 0.0 - 10.0 /100 WBCs. The reference range was not used to interpret this result as normal/abnormal. NRBC x10^3 (test code = 3996301810) See_Comment [Automated messa ge] The system which generated this result transmitted reference range: 10*3/?L. The reference range was not used to interpret this result as normal/abnormal. GRAN MAT (NEUT) % (test code = 770-8) 76.0 % IMM GRAN % (test code = 6778857749) 0.30 % LYMPH % (test code = 736-9) 17.7 % MONO % (test code = 5905-5) 4.4 % EOS % (test code = 713-8) 1.1 % BASO % (test code = 706-2) 0.5 % GRAN MAT x10^3(ANC) (test code = 2291458110) 8.11 10*3/uL 1.88-7.09 H IMM GRAN x10^3 (test code = 3743868589) 0.03 10*3/uL 0.00-0.06 LYMPH x10^3 (test code = 731-0) 1.89 10*3/uL 1.32-3.29 MONO x10^3 (test code = 742-7) 0.47 10*3/uL 0.33-0.92 EOS x10^3 (test code = 711-2) 0.12 10*3/uL 0.03-0.39 BASO x10^3 (test code = 704-7) 0.05 10*3/uL 0.01-0.07 Lab Interpretation (test code = 52298-1) [facility]normal [facility] [id number] 15:00:00* Test Item Value Reference Range Interpretation Comme nts POCT PREG (test code = 1605) Negative On board controls acceptable with C Line (test code = 3574) Yes POCT PREG LOT # (test code = 3575) POCT PREG TEST DATE (test code = 3575) KINGSLEY (test code = KINGSLEY) accurate developme nt and interpretation of all internal controls [facility] [id number] 15:00:00* Test Item Value Reference Range Interpretation Comme nts POCT PREG (test code = 1605) Negative On board controls acceptable with C Line (test code = 3574) Yes POCT PREG LOT # (test code = 3575) POCT PREG TEST DATE (test code = 3576) KINGSLEY (test code = KINGSLEY) accurate developme nt and interpretation of all internal controls [facility] [id number] 15:00:00* Test Item Value Reference Range Interpretation Comme nts POCT PREG (test code = 1605) Negative On board controls acceptable with C Line (test code = 3574) Yes POCT PREG LOT # (test code = 3575) POCT PREG TEST DATE (test code = 3576) KINGSLEY (test code = KINGSLEY) accurate developme nt and interpretation of all internal controls [facility] [id number] 19:09:00* Test Item Value Reference Range Interpretation Comme nts POCT PREG (test code = 1605) negative On board controls acceptable with C Line (test code = 3574) yes POCT PREG LOT # (test code = 3575) [id number] POCT PREG TEST DATE ( test code = 3576) 10/29/2022 Lab Interpretation (test cod e = 67837-6) Normal [facility] CenterVONWILLIBRAND FACTOR [id number] 14:36:00 * Test Item Value Reference Range Interpretation Comme nts PLATELET COUNT (test code = PLT) 312 x10 3/uL 130-408 THROMBOPLASTIN TIME PARTIAL (test code = PTT) 25 SECONDS 25-37 VW FACTOR ACTIVITY (test code = VWACT) 194 % () Patient's bl ood type: O Reference range specific for blood types:Type O: 40-126%Types A, B, and AB: 49-163% FACTOR VIII (test code = FAC8) 330 % 50-200 H FACTOR VIII ANTIGEN (test code = FAC8AG) 218 % () Patient's b lood type: O Reference range specific for blood types:Type O: 42-141%Types A, B, and AB: 66-176% RISTOCETIN 0.5 MG (test code = RIS0.5) 2 % 0-10 RISTOCETIN 1.5MG (test code = RIS1.5) 65 % 59-93 VON WILLERBRAND INTERPRETATION (test code = VWFINT) SEE COMMENT () NO EVIDENCE of v on Willebrand's disease. This interpretationis based on the test results. To differentiate between the types of vWD, a vWF antigen,vWF activity and a Factor VIII activity should be performed.If all three values are within the normal range, vWD andHeomphilia A may be excluded. If at least one parameter isabnormally low, it is necessary to calculate ratiosvWF:ACT/vWF:Ag and FVIII/vWF:Ag. Using 0.7 as a cutoff, ifboth ratios are equal to or >0.7, vWD type 1 may bediagnosed. If the vWF:ACT/vWF:Ag is <0.7, types 2A. 2B or 2Mmay be diagnosed. Additional testing such as RistocetinInduced Platelet Aggregation, Multimeric Analysis andBinding Assays are required for differentiation of vWD.Also, when the FVIII/vWF:Ag is <0.7, a type 2N or HemophiliaA may be diagnosed and a FVIII Binding assay is necessary todiscriminate. Conversely, vWF is an acute phase reactant that rises duringphysical stress, , hemorrhage, acute infection,estrogen therapy, and exercise. IS PATIENT ON ANTICOAGULANTS ? NIS PATIENT ON ANTICOAGULANTS ? NDIAGNOSIS: INDUCTIONIS PATIENT ON ANTICOAGULANTS ? NDIAGNOSIS: INDUCTIONIS PATIENT ON ANTICOAGULANTS ? NDIAGNOSIS: INDUCTIONIS PATIENT ON ANTICOAGULANTS ? NDIAGNOSIS: INDUCTIONIS PATIENT ON ANTICOAGULANTS ? NDIAGNOSIS: INDUCTIONCOMP. METABOLIC PANEL (80563)2019-11-26 10:41:00* Test Item Value Reference Range Interpretation Comme nts NA (test code = 2248391765) 140 mmol/L 135-145 K (test code = 8181231582) 4.1 mmol/L 3.5-5 CL (test code = 9183198286) 110 mmol/L 98-108 H CO2 TOTAL (test code = 6255068245) 20 mmol/L 23-31 L AGAP (test code = 8717353909) 2-16 BUN (test code = 9185556797) 14 mg/dL 7-23 GLUCOSE (test code = 3305638797) 123 mg/dL 70-110 H CREATININE (test code = 0658078455) 0.68 mg/dL 0.5-1.04 TOTAL BILI (test code = 4890424745) 0.2 mg/dL 0.1-1.1 CALCIUM (test code = 5190621945) 8.5 mg/dL 8.6-10.6 L T PROTEIN (test code = 8306314650) 6.5 g/dL 6.3-8.2 ALBUMIN (test code = 4013214338) 3.3 g/dL 3.5-5 L ALK PHOS (test code = 5465512333) 105 U/L 34-122 ALTv (test code = 1742-6) 11 U/L 5-35 AST(SGOT) (test code = 5322720894) 24 U/L 13-40 eGFR Calculation (Non-) (test code = 9225164062) mL/min/1.73m2 eGFR Calculation () (test code = 9825336119) mL/min/1.73m2 KINGSLEY (test code = KINGSLEY) Association of Glomerular Filtration Rate (GFR) and Staging of Kidney Disease* + --+ --+ ------+| GFR (mL/min/1.73 m2) ?| With Kidney Damage ?| ?Without Kidney Damage+ --------+ --------+ +| ?>90 ?| ?Stage one ?| ? Normal ?+ ---+ ---+ -------+| ?60-89 ?| ?Stage two ?| ? Decreased GFR ? + --+ --+ ------+| ?30-59 ?| ?Stage three ?| ? Stage three ? + --+ --+ ------+| ?15-29 ?| ?Stage four ? | ? Stage four ?+ ---+ ---+ -------+| ?<15 (or dialysis) ? ?| ?Stage five ? | ? Stage five ?+ ---+ ---+ -------+ *Each stage assumes the associated GFR level has been in effect for at least three months. ?Stages 1 to 5, with or without kidney disease, indicate chronic kidney disease. Notes: Determination of stages one and two (with eGFR >59mL/min/1.73 m2) requires estimation of kidney damage for at least three months as defined by structural or functional abnormalities of the kidney, manifested by either:Pathological abnormalities or Markers of kidney damage (including abnormalities in the composition of the blood or urine or abnormalities in imaging tests). Lab Interpretation (test code = 55723-4) [facility] 10:41:00* Test Item Value Reference Range Interpretation Comme nts MAGNESIUM (test code = 5848686045) 1.7 mg/dL 1.7-2.4 Lab Interpretation (test cod e = 34941-6) [facility] CenterCB WITH [id number] 10:21:00* Test Item Value Reference Range Interpretation Comme nts WBC (test code = 6690-2) See_Comment H [Automated [employer]IO[employer]] The system which generated this result transmitted reference range: 4.30 - 11.10 10*3/?L. The reference range was not used to interpret this result as normal/abnormal. RBC (test code = 789-8) See_Comment [Automated [employer]] The system which generated this result transmitted reference range: 3.93 - 5.25 10*6/?L. The reference range was not used to interpret this result as normal/abnormal. HGB (test code = 718-7) 11.3 g/dL 11.6-15 L HCT (test code = 4544-3) 34.5 % 35.7-45.2 L MCV (test code = 787-2) 86.9 fL 80.6-95.5 MCH (test code = 785-6) 28.5 pg 25.9-32.8 MCHC (test code = 786-4) 32.8 g/dL 31.6-35.1 RDW-SD (test code = 52576-8) 43.7 fL 39-49.9 RDW-CV (test code = 788-0) 13.8 % 12-15.5 PLT (test code = 777-3) See_Comment H [Automated [employer]] The system which generated this result transmitted reference range: 166 - 358 10*3/?L. The reference range was not used to interpret this result as normal/abnormal. MPV (test code = 73327-7) 10.1 fL 9.5-12.9 NRBC/100 WBC (test code = 1969982876) See_Comment [Automated [employer] ssage] The system which generated this result transmitted reference range: 0.0 - 10.0 /100 WBCs. The reference range was not used to interpret this result as normal/abnormal. NRBC x10^3 (test code = 6006315597) <0.01 See_Comment [Automated messa ge] The system which generated this result transmitted reference range: 10*3/?L. The reference range was not used to interpret this result as normal/abnormal. GRAN MAT (NEUT) % (test code = 770-8) 68.5 % IMM GRAN % (test code = 2138994453) 0.30 % LYMPH % (test code = 736-9) 25.9 % MONO % (test code = 5905-5) 3.8 % EOS % (test code = 713-8) 1.2 % BASO % (test code = 706-2) 0.3 % GRAN MAT x10^3(ANC) (test code = 1977622255) 7.93 10*3/uL 1.88-7.09 H IMM GRAN x10^3 (test code = 1685144825) 0.04 10*3/uL 0-0.06 LYMPH x10^3 (test code = 731-0) 3.00 10*3/uL 1.32-3.29 MONO x10^3 (test code = 742-7) 0.44 10*3/uL 0.33-0.92 EOS x10^3 (test code = 711-2) 0.14 10*3/uL 0.03-0.39 BASO x10^3 (test code = 704-7) 0.03 10*3/uL 0.01-0.07 Lab Interpretation (test code = 45955-0) [facility]normal [facility] CenterSEDIMENTATION [id number] 08:15:00* Test Item Value Reference Range Interpretation Comme nts ESR (test code = 2047696984) See_Comment [Automated messa ge] The system which generated this result transmitted reference range: 0 - 20 mm/HR. The reference range was not used to interpret this result as normal/abnormal. Lab Interpretation (test code = 83860-6) Normal [facility] CenterGLYCOSYLATED HEMOGLOBIN (A1C)2019-11-26 07:47:00* Test Item Value Reference Range Interpretation Comments HGB A1C (test code = 4548-4) See_Comment [Automated message] The system which generated this result transmitted reference range: 4.0 - 6.0 % NGSP. The reference range was not used to interpret this result as normal/abnormal. KINGSLEY (test code = KINGSLEY) %A1C (NGSP) Interpretation (ADA)4.8-5.6 ? ? Normal or (Non-Diabetic Range)5.7-6.4 ? ? Increased Risk (Pre-Diabetic)>6.5 ?Diabetes Indicated Lab Interpretation (test code = 57060-1) Normal [facility] CenterCT [facility] PEL[facility] W [id number] 05:36:571. ?Pelvic free fluid which measures slightly higher than simple fluidattenuation, possibly intermixed blood product. 2. ?Mild diffuse small bowel wall thickening with hyperenhancement,possibly related to inflammation. Preliminary Report Dictated by Resident: Chaisty Hameed MD., have reviewed this study and agree with the abovereport.EXAM: CT ABDOMEN/PELVIS WITH CONTRAST HISTORY: ?Abd pain, acute, generalized, with fever, post-op 11 days ? COMPARISON: CT abdomen pelvis 06/14/2016 DOSE: 481 mGycm TECHNIQUE AND FINDINGS: Contiguous axial imaging from the level of the lungbases through the pubic symphysis was performed after the uncomplicatedadministration of intravenous Omnipaque contrast. Coronal and sagittalreconstructions were obtained. ?Auto mA and/or iterativereconstructionwere used to reduce radiation dose. FINDINGS: LOWER THORAX: The lungs bases are clear. No cardiomegaly. LIVER: No focal hepatic lesions. ?Normal contour. GALLBLADDER AND BILIARY TREE: No biliary ductal dilation. ?No gallbladderwall thickening. SPLEEN: No splenomegaly. PANCREAS: No ductal dilation or masses. ADRENAL GLANDS: No adrenal nodules. KIDNEYS: No hydronephrosis, stones, or masses. Left renal cyst. PERITONEUM AND RETROPERITONEUM: No free air. Small to moderate volume freefluid, most pronounced in the pelvis. Fluid in the pelvis measures higherthan simple fluid attenuation. Small fat-containing umbilical hernia. LYMPH NODES: 8 mm perigastric lymph node (2:35) No lymphadenopathy. GI TRACT: No dilation. Normal appendix. Mild diffuse small bowel wallthickening with hyperenhancement. PELVIS/BLADDER: Urinary bladder is decompressed. uterus. VESSELS: Unremarkable. BONES AND SOFT TISSUES: No suspicious lytic or sclerotic bony lesions. [facility], Radiant Results InftUser - 11/25/2019 11:38 PM CSTEXAM: CT ABDOMEN/PELVIS WITH CONTRASTHISTORY: Abd pain, acute, generalized, with fever, post-op 11 days COMPARISON: CT abdomen pelvis 06/14/2016DOSE: 481 mGycmTECHNIQUE AND FINDINGS: Contiguous axial imaging from the level of the lungbases through the pubic symphysis was performed after the uncomplicatedadministration of intravenous Omnipaque contrast. Coronal and sagittalreconstructions were obtained. Auto mA and/or iterative reconstructionwere used to reduce radiation dose.FINDINGS:LOWER THORAX: The lungs bases are clear. No cardiomegaly.LIVER: No focal hepatic lesions. Normal contour.GALLBLADDER AND BILIARY TREE: No biliary ductal dilation. No gallb ladderwall thickening.SPLEEN: No splenomegaly.PANCREAS: No ductal dilation or masses.ADRENAL GLANDS: No adrenal nodules.KIDNEYS: No hydronephrosis, stones, or masses. Left renal cyst.PERITONEUM AND RETROPERITONEUM: No free air. Small to moderate volume freefluid, most pronounced in the pelvis. Fluid in the pelvis measures higherthan simple fluid attenuation. Small fat-containing umbilical hernia.LYMPH NODES: 8 mm perigastric lymph node (2:35) No lymphadenopathy.GI TRACT: No dilation. Normal appendix. Mild diffuse small bowel wallthickening with hyperenhancement.PELVIS/BLADDER: Urinary bladderis decompressed. uterus.VESSELS: Unremarkable.BONES AND SOFT TISSUES: No suspicious lytic or sclerotic bony lesions.IMPRESSION1. Pelvic free fluid which measures slightly higher than simple fluidattenuation, possibly intermixed blood product.2. Mild diffuse small bowel wall thickening with hyperenhancement,possibly related to inflammation.Preliminary Report Dictated by Resident: Duran Rosario, Chasity Hazel MD., have reviewed this study and agree with the abovereport.[facility] WITH [id number] 04:56:00* Test Item Value Reference Range Interpretation Comme nts WBC (test code = 6690-2) See_Comment H [Automated message] The system which generated this result transmitted reference range: 4.30 - 11.10 10*3/?L. The reference range was not used to interpret this result as normal/abnormal. RBC (test code = 789-8) See_Comment [Automated message] The system which generated this result transmitted reference range: 3.93 - 5.25 10*6/?L. The reference range was not used to interpret this result as normal/abnormal. HGB (test code = 718-7) 14.2 g/dL 11.6-15 HCT (test code = 4544-3) 44.9 % 35.7-45.2 MCV (test code = 787-2) 86.8 fL 80.6-95.5 MCH (test code = 785-6) 27.5 pg 25.9-32.8 MCHC (test code = 786-4) 31.6 g/dL 31.6-35.1 RDW-SD (test code = 17303-2) 43.9 fL 39-49.9 RDW-CV (test code = 788-0) 13.7 % 12-15.5 PLT (test code = 777-3) See_Comment H [Automated message] The system which generated this result transmitted reference range: 166 - 358 10*3/?L. The reference range was not used to interpret this result as normal/abnormal. MPV (test code = 82074-7) 9.9 fL 9.5-12.9 NRBC/100 WBC (test code = 8211304757) See_Comment [Automated message] The system which generated this result transmitted reference range: 0.0 - 10.0 /100 WBCs. The reference range was not used to interpret this result as normal/abnormal. NRBC x10^3 (test code = 2391567116) <0.01 See_Comment [Automated message] The system which generated this result transmitted reference range: 10*3/?L. The reference range was not used to interpret this result as normal/abnormal. GRAN MAT (NEUT) % (test code = 770-8) 84.7 % IMM GRAN % (test code = 2541947755) 0.80 % LYMPH % (test code = 736-9) 9.9 % MONO % (test code = 5905-5) 3.7 % EOS % (test code = 713-8) 0.6 % BASO % (test code = 706-2) 0.3 % GRAN MAT x10^3(ANC) (test code = 1280506880) 21.32 10*3/uL 1.88-7.09 H IMM GRAN x10^3 (test code = 6415173325) 0.21 10*3/uL 0-0.06 H LYMPH x10^3 (test code = 731-0) 2.49 10*3/uL 1.32-3.29 MONO x10^3 (test code = 742-7) 0.94 10*3/uL 0.33-0.92 H EOS x10^3 (test code = 711-2) 0.16 10*3/uL 0.03-0.39 BASO x10^3 (test code = 704-7) 0.08 10*3/uL 0.01-0.07 H BANDS (test code = 0824140361) Increased A Lab Interpretation (test code = 41222-5) [facility]normal [facility] CenterUrinalysis2020-01-[facility] 04:56:00* Test Item Value Reference Range Interpretation Comme nts APPEARANCE (test code = 8912875383) Cloudy Clear A COLOR (test code = 0085379670) Gay Yellow A PH (test code = 5712218777) 4.8-8.0 SP GRAVITY (test code = 2712931638) 1.003-1.030 H GLU U QUAL (test code = 5774134763) Normal Normal BLOOD (test code = 0067884614) 2+ Negative A KETONES (test code = 3792837517) Negative Negative PROTEIN (test code = 2887-8) 100 mg/dL Negative A UROBILIN (test code = 8881802440) Normal Normal BILIRUBIN (test code = 4032707313) Negative Negative NITRITE (test code = 9024904934) Negative Negative LEUK DAVIS (test code = 4972613202) 250/uL Negative A RBC/HPF (test code = 2040310860) See_Comment H [Automated messa ge] The system which generated this result transmitted reference range: 0 - 3 HPF. The reference range was not used to interpret this result as normal/abnormal. WBC/HPF (test code = 3641075246) See_Comment H [Automated messa ge] The system which generated this result transmitted reference range: 0 - 5 HPF. The reference range was not used to interpret this result as normal/abnormal. BACTERIA (test code = 6879265906) Many Negative A MUCOUS (test code = 1556191281) Marked Negative LPF A SQ EPITH (test code = 2139801954) HPF HYAL CAST (test code = 7094386881) See_Comment H [Automated messa ge] The system which generated this result transmitted reference range: <=2 LPF. The reference range was not used to interpret this result as normal/abnormal. WBC CAST (test code = 5638278301) See_Comment H [Automated messa ge] The system which generated this result transmitted reference range: <=1 LPF. The reference range was not used to interpret this result as normal/abnormal. GRAN CASTS (test code = 6736734872) See_Comment H [Automated messa ge] The system which generated this result transmitted reference range: <=1 LPF. The reference range was not used to interpret this result as normal/abnormal. Lab Interpretation (test code = 33610-2) [facility]normal [facility] CenterLact Acid Whole [id number] 04:27:00* Test Item Value Reference Range Interpretation Comme nts LACTIC ACID (test code = 8009384760) 1.66 mmol/L 0.5-2.2 Lab Interpretation (test cod e = 22926-9) Normal [facility] CenterAD,CLC OR [facility] ONLY - INFLUENZA A & B DIRECT [id number] 04:21:00* Test Item Value Reference Range Interpretation Comme nts Influenza A (test code = 38095-5) Negative Negative Influenza B (test code = 86813-5) Negative Negative Lab Interpretation (test cod e = 71590-5) Normal [facility] Metabolic Panel (NA, K, CL, CO2, GLUCOSE, BUN, CREATININE, CA)2019-11-26 04:16:00* Test Item Value Reference Range Interpretation Comme nts NA (test code = 1584590703) 140 mmol/L 135-145 K (test code = 2865246900) 3.8 mmol/L 3.5-5 CL (test code = 5430712710) 109 mmol/L 98-108 H CO2 TOTAL (test code = 8671224290) 19 mmol/L 23-31 L AGAP (test code = 4901296095) 2-16 BUN (test code = 3949311412) 18 mg/dL 7-23 GLUCOSE (test code = 8270574831) 117 mg/dL 70-110 H CREATININE (test code = 8046306218) 0.93 mg/dL 0.5-1.04 CALCIUM (test code = 8085003554) 9.1 mg/dL 8.6-10.6 eGFR Calculation (Non-) (test code = 1524317743) mL/min/1.73m2 eGFR Calculation () (test code = 9631569566) mL/min/1.73m2 KINGSLEY (test code = KINGSLEY) Association of Glomerular Filtration Rate (GFR) and Staging of Kidney Disease* + --+ --+ ------+| GFR (mL/min/1.73 m2) ?| With Kidney Damage ?| ?Without Kidney Damage+ --------+ --------+ +| ?>90 ?| ?Stage one ?| ? Normal ?+ ---+ ---+ -------+| ?60-89 ?| ?Stage two ?| ? Decreased GFR ? + --+ --+ ------+| ?30-59 ?| ?Stage three ?| ? Stage three ? + --+ --+ ------+| ?15-29 ?| ?Stage four ? | ? Stage four ?+ ---+ ---+ -------+| ?<15 (or dialysis) ? ?| ?Stage five ? | ? Stage five ?+ ---+ ---+ -------+ *Each stage assumes the associated GFR level has been in effect for at least three months. ?Stages 1 to 5, with or without kidney disease, indicate chronic kidney disease. Notes: Determination of stages one and two (with eGFR >59mL/min/1.73 m2) requires estimation of kidney damage for at least three months as defined by structural or functional abnormalities of the kidney, manifested by either:Pathological abnormalities or Markers of kidney damage (including abnormalities in the composition of the blood or urine or abnormalities in imaging tests). Lab Interpretation (test code = 97384-7) [facility]normal [facility] CenterHep[facility] Function Panel (ALB, T.PRO, BILI T, BU/BC, ALT, AST, ALK PHOS)2019-11-26 04:16:00* Test Item Value Reference Range Interpretation Comme nts TOTAL BILI (test code = 1538586109) 0.2 mg/dL 0.1-1.1 BILI UNCON (test code = 7402557147) 0.1 mg/dL 0.1-1.1 BILI CONJ (test code = 0211745187) 0.0 mg/dL 0-0.3 T PROTEIN (test code = 6914259484) 7.7 g/dL 6.3-8.2 ALBUMIN (test code = 3679469976) 4.0 g/dL 3.5-5 ALK PHOS (test code = 8630992893) 158 U/L 34-122 H ALTv (test code = 1742-6) 12 U/L 5-35 AST(SGOT) (test code = 9499962703) 15 U/L 13-40 Lab Interpretation (test cod e = 52802-5) Abnormal [facility] CenterChes 2 [id number] 04:11:59EXAM: XR CHEST 2 VW HISTORY: cough, fever COMPARISON: None FINDINGS: The lungs are clear. No pleural effusion or pneumothorax is identified. The heart is normal in size. No acute bony abnormalities are noted. Preliminary Report Dictated by Resident: Chasity Hameed MD., have reviewedthis study and agree with the abovereport.[facility], Radiant Results Inft User - 11/25/2019 10:13 PM CSTEXAM: XR CHEST 2 VWHISTORY: cough, fever COMPARISON: NoneFINDINGS:The lungs are clear. No pleural effusion or pneumothorax is identified.The heart is normal in size. No acute bony abnormalities are noted.Preliminary Report Dictated by Resident: Chasity Melgar MD., have reviewed this study and agree with the abovereport.[facility] CenterCB W/AUTO [id number] 05:15:00 * Test Item Value Reference Range Interpretation Comme nts WHITE BLOOD CELL (test code = WBC) 17.2 K/mm3 6.6-12.1 H Results verified by repeat analysis RED BLOOD CELL (test code = RBC) 3.30 M/mm3 3.45-5.01 L HEMOGLOBIN (test code = HGB) 9.5 g/dL 10.7-13.9 L HEMATOCRIT (test code = HCT) 30.0 % 32.1-42.1 L MEAN CELL VOLUME (test code = MCV) 91 fL 84.1-94.8 N MEAN CELL HGB (test code = MCH) 28.8 pg 27-35 N MEAN CELL HGB CONCETRATION (test code = MCHC) 31.7 gm/dL 32.2-34.1 L RED CELL DISTRIBUTION WIDTH (test code = RDW) 13.8 % 12.4-16.5 N PLATELET COUNT (test code = PLT) 276 K/mm3 133-385 N IMMATURE PLATELET FRACTION (test code = IPF) 0.0 % 0.0-10.8 N MEAN PLATELET VOLUME (test code = MPV) 11.5 fl 9.1-12.7 N NEUTROPHIL % (test code = NT%) 78.3 % 56.5-79.4 N LYMPHOCYTE % (test code = LY%) 12.3 % 14.3-34.3 L MONOCYTE % (test code = MO%) 8.3 % 5.1-10.4 N EOSINOPHIL % (test code = EO%) 0.4 % 0.1-3.0 N BASOPHIL % (test code = BA%) 0.2 % 0.1-1.0 N NEUTROPHIL # (test code = NT#) 13.5 K/mm3 LYMPHOCYTE # (test code = LY#) 2.1 K/mm3 MONOCYTE # (test code = MO#) 1.4 K/mm3 EOSINOPHIL # (test code = EO#) 0.07 K/mm3 BASOPHIL # (test code = BA#) 0.0 K/mm3 RBC MORPHOLOGY REQUIRED (test code = RBCM) NORMAL NORMAL PLATELET MORPHOLOGY REQUIRED (test code = PLTMR) NORMAL NORMAL AG HEPATITIS B [id number] 16:07:00* Test Item Value Reference Range Interpretation Comme nts AG HEPATITIS B SURFACE (test code = HBSAG) NONREACTIVE NONREACTIVE IS CONSENT FORM SIGNED FOR HIV TESTING? YAB HEPATITIS C [id number] 16:07:00* Test Item Value Reference Range Interpretation Comme nts AB HEPATITIS C (test code = HCVAB) NONREACTIVE NONREACTIVE SIGNAL TO CUTOFF (test code = CUTOFF) 0.02 <0.80 N IS CONSENT FORM SIGNED FOR HIV TESTING? KELSY [id number] 16:07:00* Test Item Value Reference Range Interpretation Comme nts AB TREPONEMA (test code = TREPAB) NONREACTIVE NONREACTIVE IS CONSENT FORM SIGNED FOR HIV TESTING? KELSY HIV 1 16:07:00* Test Item Value Reference Range Interpretation Comme nts AB HIV 1 2 (test code = DTC10ID) Nonreactive NonReactive It is recognized that currently available assays for thedetection of antibodies to HIV-1 and/or HIV-2 may notdetect all infected individuals. A negative test result doesnot exclude the possibility of exposure to or infection withHIV. HIV antibodies may be undetectable in some stages ofthe infection and in some clinical conditions. IS CONSENT FORM SIGNED FOR HIV TESTING? KELSY HIV 1 16:06:00* Test Item Value Reference Range Interpretation Comme nts AB HIV 1 2 (test code = RLJ54II) Nonreactive NonReactive It is recognized that currently available assays for thedetection of antibodies to HIV-1 and/or HIV-2 may notdetect all infected individuals. A negative test result doesnot exclude the possibility of exposure to or infection withHIV. HIV antibodies may be undetectable in some stages ofthe infection and in some clinical conditions. IS CONSENT FORM SIGNED FOR HIV TESTING? HARINIRivasRODRIGUEZAMINATITA FACTOR [id number] 10:18:00* Test Item Value Reference Range Interpretation Comments PLATELET COUNT (test code = PLT) 312 x10 3/uL 130-408 N THROMBOPLASTIN TIME PARTIAL (test code = PTT) 25 SECONDS 25-37 N PLATELET FUNCTION ANALYSIS (test code = PFA) Test not performed SECONDS 80-184 VW FACTOR ACTIVITY (test code = VWACT) 194 % Patient's bl ood type: O Reference range specific for blood types:Type O: 40-126%Types A, B, and AB: 49-163% FACTOR VIII (test code = FAC8) 330 % 50-200 H FACTOR VIII ANTIGEN (test code = FAC8AG) 218 % Patient's b lood type: O Reference range specific for blood types:Type O: 42-141%Types A, B, and AB: 66-176% RISTOCETIN 0.5 MG (test code = RIS0.5) 2 % 0-10 N RISTOCETIN 1.5MG (test code = RIS1.5) 65 % 59-93 N VON W[place]BRAND INTERPRETATION (test code = VWFINT) SEE COMMENT NO EVIDENCE of v on Willebrand's disease. This interpretationis based on the test results. To differentiate between the types of vWD, a vWF antigen,vWF activity and a Factor VIII activity should be performed.If all three values are within the normal range, vWD andHeomphilia A may be excluded. If at least one parameter isabnormally low, it is necessary to calculate ratiosvWF:ACT/vWF:Ag and FVIII/vWF:Ag. Using 0.7 as a cutoff, ifboth ratios are equal to or >0.7, vWD type 1 may bediagnosed. If the vWF:ACT/vWF:Ag is <0.7, types 2A. 2B or 2Mmay be diagnosed. Additional testing such as RistocetinInduced Platelet Aggregation, Multimeric Analysis andBinding Assays are required for differentiation of vWD.Also, when the FVIII/vWF:Ag is <0.7, a type 2N or HemophiliaA may be diagnosed and a FVIII Binding assay is necessary todiscriminate. Conversely, vWF is an acute phase reactant that rises duringphysical stress, , hemorrhage, acute infection,estrogen therapy, and exercise. IS PATIENT ON ANTICOAGULANTS ? NDIAGNOSIS: INDUCTIONNUNIVERSITY HOSP[facility]ALS [facility]AGE MEDICAL CENTERIBRAND FACTOR PANEL 2019-11-14 10:18:00* Test Item Value Reference Range Interpretation Comme nts PLATELET COUNT (test code = PLT) 312 x10 3/uL 130-408 THROMBOPLASTIN TIME PARTIAL (test code = PTT) 25 SECONDS 25-37 PLATELET FUNCTION ANALYSIS (test code = PFA) VW FACTOR ACTIVITY (test code = VWACT) 194 % () Patient's bl ood type: O Reference range specific for blood types:Type O: 40-126%Types A, B, and AB: 49-163% PFA COLLAGEN/ADP (test code = COLADP) RISTOCETIN COFACTOR (test code = RIST) FACTOR VIII (test code = FAC8) 330 % 50-200 H FACTOR VIII ANTIGEN (test code = FAC8AG) 218 % () Patient's b lood type: O Reference range specific for blood types:Type O: 42-141%Types A, B, and AB: 66-176% RISTOCETIN 0.5 MG (test code = RIS0.5) 2 % 0-10 RISTOCETIN 1.5MG (test code = RIS1.5) 65 % 59-93 VON WILLERBRAND INTERPRETATION (test code = VWFINT) SEE COMMENT () NO EVIDENCE of v on Willebrand's disease. This interpretationis based on the test results. To differentiate between the types of vWD, a vWF antigen,vWF activity and a Factor VIII activity should be performed.If all three values are within the normal range, vWD andHeomphilia A may be excluded. If at least one parameter isabnormally low, it is necessary to calculate ratiosvWF:ACT/vWF:Ag and FVIII/vWF:Ag. Using 0.7 as a cutoff, ifboth ratios are equal to or >0.7, vWD type 1 may bediagnosed. If the vWF:ACT/vWF:Ag is <0.7, types 2A. 2B or 2Mmay be diagnosed. Additional testing such as RistocetinInduced Platelet Aggregation, Multimeric Analysis andBinding Assays are required for differentiation of vWD.Also, when the FVIII/vWF:Ag is <0.7, a type 2N or HemophiliaA may be diagnosed and a FVIII Binding assay is necessary todiscriminate. Conversely, vWF is an acute phase reactant that rises duringphysical stress, , hemorrhage, acute infection,estrogen therapy, and exercise. IS PATIENT ON ANTICOAGULANTS ? NIS PATIENT ON ANTICOAGULANTS ? NDIAGNOSIS: INDUCTIONIS PATIENT ON ANTICOAGULANTS ? NDIAGNOSIS: INDUCTIONIS PATIENT ON ANTICOAGULANTS ? NDIAGNOSIS: INDUCTIONIS PATIENT ON ANTICOAGULANTS ? NDIAGNOSIS: INDUCTIONIS PATIENT ON ANTICOAGULANTS ? NDIAGNOSIS: INDUCTIONVONWILLIBRAND FACTOR [id number] 10:15:00* Test Item Value Reference Range Interpretation Comme nts PLATELET COUNT (test code = PLT) 312 x10 3/uL 130-408 N THROMBOPLASTIN TIME PARTIAL (test code = PTT) SECONDS 25-37 PLATELET FUNCTION ANALYSIS (test code = PFA) SECONDS 80-184 VW FACTOR ACTIVITY (test code = VWACT) 194 % Patient's bl ood type: O Reference range specific for blood types:Type O: 40-126%Types A, B, and AB: 49-163% FACTOR VIII (test code = FAC8) 330 % 50-200 H FACTOR VIII ANTIGEN (test code = FAC8AG) 218 % Patient's b lood type: O Reference range specific for blood types:Type O: 42-141%Types A, B, and AB: 66-176% RISTOCETIN 0.5 MG (test code = RIS0.5) 2 % 0-10 N RISTOCETIN 1.5MG (test code = RIS1.5) 65 % 59-93 N VON WILLEBRAND INTERPRETATION (test code = VWFINT) IS PATIENT ON ANTICOAGULANTS ? NDIAGNOSIS: INDUCTIONVONFLLLIBRAND FACTOR PANEL 2019-11-14 10:15:00* Test Item Value Reference Range Interpretation Comme nts PLATELET COUNT (test code = PLT) 312 x10 3/uL 130-408 THROMBOPLASTIN TIME PARTIAL (test code = PTT) PLATELET FUNCTION ANALYSIS (test code = PFA) VW FACTOR ACTIVITY (test code = VWACT) 194 % () Patient's bl ood type: O Reference range specific for blood types:Type O: 40-126%Types A, B, and AB: 49-163% PFA COLLAGEN/ADP (test code = COLADP) RISTOCETIN COFACTOR (test code = RIST) FACTOR VIII (test code = FAC8) 330 % 50-200 H FACTOR VIII ANTIGEN (test code = FAC8AG) 218 % () Patient's b lood type: O Reference range specific for blood types:Type O: 42-141%Types A, B, and AB: 66-176% RISTOCETIN 0.5 MG (test code = RIS0.5) 2 % 0-10 RISTOCETIN 1.5MG (test code = RIS1.5) 65 % 59-93 VON WILLERBRAND INTERPRETATION (test code = VWFINT) IS PATIENT ON ANTICOAGULANTS ? NIS PATIENT ON ANTICOAGULANTS ? NDIAGNOSIS: INDUCTIONIS PATIENT ON ANTICOAGULANTS ? NDIAGNOSIS: INDUCTIONIS PATIENT ON ANTICOAGULANTS ? NDIAGNOSIS: INDUCTIONIS PATIENT ON ANTICOAGULANTS ? NDIAGNOSIS: INDUCTIONVONWILLIBRAND FACTOR [id number] 10:14:00* Test Item Value Reference Range Interpretation Comme nts PLATELET COUNT (test code = PLT) 312 x10 3/uL 130-408 N THROMBOPLASTIN TIME PARTIAL (test code = PTT) SECONDS 25-37 PLATELET FUNCTION ANALYSIS ( test code = PFA) SECONDS 80-184 VW FACTOR ACTIVITY (test cod e = VWACT) % FACTOR VIII (test code = FAC8) 330 % 50-200 H FACTOR VIII ANTIGEN (test co de = FAC8AG) % RISTOCETIN 0.5 MG (test code = RIS0.5) 2 % 0-10 N RISTOCETIN 1.5MG (test code = RIS1.5) 65 % 59-93 N VON WILLEBRAND INTERPRETATIO N (test code = VWFINT) IS PATIENT ON ANTICOAGULANTS ? NDIAGNOSIS: INDUCTIONVON[facility] FACTOR PANEL 2019-11-14 10:14:00* Test Item Value Reference Range Interpretation Comme nts PLATELET COUNT (test code = PLT) 312 x10 3/uL 130-408 THROMBOPLASTIN TIME PARTIAL (test code = PTT) PLATELET FUNCTION ANALYSIS ( test code = PFA) VW FACTOR ACTIVITY (test cod e = VWACT) % PFA COLLAGEN/ADP (test code = COLADP) RISTOCETIN COFACTOR (test co de = RIST) FACTOR VIII (test code = FAC8) 330 % 50-200 H FACTOR VIII ANTIGEN (test co de = FAC8AG) RISTOCETIN 0.5 MG (test code = RIS0.5) 2 % 0-10 RISTOCETIN 1.5MG (test code = RIS1.5) 65 % 59-93 VON WILLERBRAND INTERPRETATI ON (test code = VWFINT) IS PATIENT ON ANTICOAGULANTS ? NIS PATIENT ON ANTICOAGULANTS ? NDIAGNOSIS: INDUCTIONIS PATIENT ON ANTICOAGULANTS ? NDIAGNOSIS: INDUCTIONIS PATIENT ON ANTICOAGULANTS ? NDIAGNOSIS: [facility] FACTOR [id number] 09:38:00* Test Item Value Reference Range Interpretation Comme nts PLATELET COUNT (test code = PLT) 312 x10 3/uL 130-408 THROMBOPLASTIN TIME PARTIAL (test code = PTT) PLATELET FUNCTION ANALYSIS ( test code = PFA) VW FACTOR ACTIVITY (test cod e = VWACT) % PFA COLLAGEN/ADP (test code = COLADP) RISTOCETIN COFACTOR (test co de = RIST) FACTOR VIII (test code = FAC8) FACTOR VIII ANTIGEN (test co de = FAC8AG) RISTOCETIN 0.5 MG (test code = RIS0.5) 2 % 0-10 RISTOCETIN 1.5MG (test code = RIS1.5) 65 % 59-93 VON WILLERBRAND INTERPRETATI ON (test code = VWFINT) IS PATIENT ON ANTICOAGULANTS ? NIS PATIENT ON ANTICOAGULANTS ? NDIAGNOSIS: INDUCTIONIS PATIENT ON ANTICOAGULANTS ? NDIAGNOSIS: INDUCTIONVONWILLIBRAND FACTOR [id number] 09:37:00* Test Item Value Reference Range Interpretation Comme nts PLATELET COUNT (test code = PLT) 312 x10 3/uL 130-408 N THROMBOPLASTIN TIME PARTIAL (test code = PTT) SECONDS 25-37 PLATELET FUNCTION ANALYSIS ( test code = PFA) SECONDS 80-184 VW FACTOR ACTIVITY (test cod e = VWACT) % FACTOR VIII (test code = FAC8) % 50-200 FACTOR VIII ANTIGEN (test co de = FAC8AG) % RISTOCETIN 0.5 MG (test code = RIS0.5) 2 % 0-10 N RISTOCETIN 1.5MG (test code = RIS1.5) 65 % 59-93 N VON WILLEBRAND INTERPRETATIO N (test code = VWFINT) IS PATIENT ON ANTICOAGULANTS ? NDIAGNOSIS: INDUCTIONVONWILLIBRAND FACTOR PANEL 2019-11-14 09:16:00* Test Item Value Reference Range Interpretation Comme nts PLATELET COUNT (test code = PLT) 312 x10 3/uL 130-408 N THROMBOPLASTIN TIME PARTIAL (test code = PTT) SECONDS 25-37 PLATELET FUNCTION ANALYSIS ( test code = PFA) SECONDS 80-184 VW FACTOR ACTIVITY (test cod e = VWACT) % FACTOR VIII (test code = FAC8) % 50-200 FACTOR VIII ANTIGEN (test co de = FAC8AG) % RISTOCETIN 0.5 MG (test code = RIS0.5) % 0-10 RISTOCETIN 1.5MG (test code = RIS1.5) % 59-93 VON WILLEBRAND INTERPRETATIO N (test code = VWFINT) IS PATIENT ON ANTICOAGULANTS ? NDIAGNOSIS: INDUCTIONVONWILLIBRAND FACTOR PANEL 2019-11-14 09:16:00* Test Item Value Reference Range Interpretation Comme nts PLATELET COUNT (test code = PLT) 312 x10 3/uL 130-408 THROMBOPLASTIN TIME PARTIAL (test code = PTT) PLATELET FUNCTION ANALYSIS ( test code = PFA) VW FACTOR ACTIVITY (test cod e = VWACT) % PFA COLLAGEN/ADP (test code = COLADP) RISTOCETIN COFACTOR (test co de = RIST) FACTOR VIII (test code = FAC8) FACTOR VIII ANTIGEN (test co de = FAC8AG) RISTOCETIN 0.5 MG (test code = RIS0.5) RISTOCETIN 1.5MG (test code = RIS1.5) VON WILLEHAYLEY INTERPRETATI ON (test code = VWFINT) IS PATIENT ON ANTICOAGULANTS ? NIS PATIENT ON ANTICOAGULANTS ? NDIAGNOSIS: INDUCTIONPROTHROMBIN [id number] 03:12:00* Test Item Value Reference Range Interpretation Comme nts PROTHROMBIN TIME PATIENT (te st code = PTP) 11.0 secs 10.4-12.4 N THROMBOPLASTIN TIME [id number] 03:12:00* Test Item Value Reference Range Interpretation Comme nts THROMBOPLASTIN TIME PARTIAL (test code = PTT) 27.1 secs 22-38 N [id number] 03:12:00* Test Item Value Reference Range Interpretation Comme nts FIBRINOGEN (test code = FIB) 708 mg/dL 309-518 H CBC W/AUTO [id number] 21:07:00* Test Item Value Reference Range Interpretation Comme nts WHITE BLOOD CELL (test code = WBC) [...] pg 27-35 N MEAN CELL HGB CONCETRATION ( test code = MCHC) 31.9 gm/dL 32.2-34.1 L RED CELL DISTRIBUTION WIDTH (test code = RDW) 13.9 % 12.4-16.5 N PLATELET COUNT (test code = PLT) 306 K/mm3 133-385 N IMMATURE PLATELET FRACTION ( test code = IPF) 0.0 % 0.0-10.8 N MEAN PLATELET VOLUME (test c ode = MPV) 11.0 fl 9.1-12.7 N NEUTROPHIL % (test code = NT%) 63.5 [...] = BA#) 0.0 K/mm3 RBC MORPHOLOGY REQUIRED (charu t code = RBCM) NORMAL NORMAL PLATELET MORPHOLOGY REQUIRED (test code = PLTMR) NORMAL NORMAL AG HEPATITIS B [id number] 19:20:00* Test Item Value Reference Range Interpretation Comme nts AG HEPATITIS B SURFACE (test code = HBSAG) NONREACTIVE NONREACTIVE IS CONSENT FORM SIGNED FOR HIV TESTING? B HEPATITIS C [id number] 19:20:00* Test Item Value Reference Range Interpretation Comme nts AB HEPATITIS C (test code = HCVAB) NONREACTIVE NONREACTIVE SIGNAL TO CUTOFF (test code = CUTOFF) 0.02 <0.80 N IS CONSENT FORM SIGNED FOR HIV TESTING? YAB [id number] 19:20:00* Test Item Value Reference Range Interpretation Comme nts AB TREPONEMA (test code = TREPAB) NONREACTIVE NONREACTIVE IS CONSENT FORM SIGNED FOR HIV TESTING? B HIV 1 19:20:00* Test Item Value Reference Range Interpretation Comme nts AB HIV 1 2 (test code = YBK61OS) NONREACTIVE IS CONSENT FORM SIGNED FOR HIV TESTING? YAG HEPATITIS B [id number] 18:55:00* Test Item Value Reference Range Interpretation Comme nts AG HEPATITIS B SURFACE (test code = HBSAG) NONREACTIVE NONREACTIVE IS CONSENT FORM SIGNED FOR HIV TESTING? YAB HEPATITIS C [id number] 18:55:00* Test Item Value Reference Range Interpretation Comme nts AB HEPATITIS C (test code = HCVAB) NONREACTIVE SIGNAL TO CUTOFF (test code = CUTOFF) <0.80 IS CONSENT FORM SIGNED FOR HIV TESTING? YAB [id number] 18:55:00* Test Item Value Reference Range Interpretation Comme nts AB TREPONEMA (test code = TREPAB) NONREACTIVE NONREACTIVE IS CONSENT FORM SIGNED FOR HIV TESTING? YAB HIV 1 18:55:00* Test Item Value Reference Range Interpretation Comme nts AB HIV 1 2 (test code = XVW74UX) NONREACTIVE IS CONSENT FORM SIGNED FOR HIV TESTING? YCBC W/AUTO [id number] 18:14:00* Test Item Value Reference Range Interpretation Comme nts WHITE BLOOD CELL (test code = WBC) [...] pg 27-35 N MEAN CELL HGB CONCETRATION ( test code = MCHC) 31.8 gm/dL 32.2-34.1 L RED CELL DISTRIBUTION WIDTH (test code = RDW) 13.9 % 12.4-16.5 N PLATELET COUNT (test code = PLT) 300 K/mm3 133-385 N IMMATURE PLATELET FRACTION ( test code = IPF) 0.0 % 0.0-10.8 N MEAN PLATELET VOLUME (test c ode = MPV) 11.2 fl 9.1-12.7 N NEUTROPHIL % (test code = NT%) 68.4 [...] = BA#) 0.0 K/mm3 RBC MORPHOLOGY REQUIRED (charu t code = RBCM) NORMAL NORMAL PLATELET MORPHOLOGY REQUIRED (test code = PLTMR) NORMAL NORMAL [id number] 13:24:00* Test Item Value Reference Range Interpretation Comme nts FIBRONECTIN (test code = FFN) NEGATIVE Among symptoma tic women, elevated levels (>0.05 ug/mL) offFN between 24 weeks and 34 weeks, 6 days indicate increasedrisk of delivery in <= 7 or <= 14 days from samplecollection. Similarly, among asymptomatic women, elevated levels of fFNbetween 22 weeks and 30 weeks, 6 days indicate increasedrisk of delivery in <= 34 weeks, 6 days of gestation. - US [id number] 11:54:00Patient Name: YUMIKO MEI Unit No: [id number] EXAMS: CPT CODE: [id number] [place] LTD [address] [facility] [address] [address] LIMITED OBSTETRICAL ULTRASOUND REPORT Pat. Name: YUMIKO MEI Pat. No: [id number] Study Date: 10/07/2019 11:11am , Age: 05 2000, 19 Pregnancies: 1 LMP: Unknown GA Selected: 31w5d (From Known E) JOVITA: 12/04/2019 Referring MD: BONNIE KABA Budget Record Clerk: Jenniffer Vaca RDMS CPT4: USPREGLTD Admitting MD: BONNIE KABA Hist/Ind: 2ND SCAN: CX LENGHT AND HUA Cervical Length:2.3 cm Heart Rate: 130 bpm Amniotic Fluid Index: 11.4cm (08.7-24.1) Q1: 2.7cm Q2: 2.5cm Q3: 2.9cm Q4: 3.3cm MATERNAL ANATOMY Ovaries LxHxW (cm) Right 2.5 x 1.8 x 2.0 Vol: 4.7cc Left 2.5 x 1.8 x 1.6 Vol: 3.8cc CLINICAL SUMMARY Type of Gestation: Taylor Intrauterine in vertex presentation. motion and organs seen: heart motion seen Placental location: Anterior Placental maturity : Grade 2 There is no evidence of placenta previa. Amniotic fluid volume is normal. Uterus and adnexa: Nosignificant abnormality is seen. Cervix length 2.3 cm TL. Tamela Soriano M.D. Electronic Signature 10/07/2019 11:54am [id number] Reported and signed by: Tamela Soriano MD [facility] NAME: YUMIKO MEI Radiology Department PHYS: Bonnie Garg DO [address] : 2000 AGE: 19 SEX: F [place] [address] LOC: QuentinDOMINIC PHONE #: [phone] EXAM DATE: 10/07/2019 STATUS: REG ER FAX #: [phone] RAD NO: Page 1 Signed Report (CONTINUED) Patient Name: YUMIKO MEI Unit No: [id number] EXAMS: CPT CODE: [id number] [place] LTD [address] (Continued) CC: Bonnie Kaba DO Technologist: Jenniffer Vaca RDMS Probe: Trnscrbd D/ (1154) t.ROBLESR.NMG Orig Print D/T: S: 10/07/2019 (1154) [facility] NAME: YUMIKO MEI [place] Radiology Department PHYS: Bonnie Garg DO [address] : 2000 AGE: 19 SEX: F [place] [address] LOC: QuentinDOMINIC PHONE #: [phone] EXAM DATE: 10/07/2019 STATUS: REG ERFAX #: [phone] RAD NO: Page 2 Signed Report Patient Name: YUMIKO MEI Unit No: [id number] EXAMS: CPT CODE: [id number] [place] LTD [address]18 (Continued) [facility] NAME: YUMIKO MEI SYBIL Radiology Department PHYS: Bonnie Garg DO [address] : 2000 AGE: 19 SEX: F [place] [address] LOC: QuentinDOMINIC PHONE #: [phone] EXAMDATE: 10/07/2019 STATUS: REG ER FAX #: [phone] RAD NO: Page 3 Signed Report- US [id number] 21:34:00 Patient Name: YUMIKO MEI Unit No: [id number] EXAMS: CPT CODE: [id number] [place] LTD [address]20 ULTRASOUND; LIMITED EVALUATION: HISTORY: Second trimester with decreased movement. Vaginal bleeding. Evaluate placenta. COMPARISON EXAMS: None available. TECHNIQUE: Sonographic evaluation was performed using high resolution B-mode, pulse and color Doppler imaging. FINDINGS: A single living fetus is identified in cephalic presentation with cardiac activity documented at 137 bpm. The placenta is positioned anteriorly, is grade 1, with no evidence of placenta previa ormarginal extra chorionic fluid collections. Amniotic fluid volume is subjectively normal. The cervix is closed and measures 4.2 cm in length. IMPRESSION: 1. Single living intrauterine gestation. 2. Anterior placenta without evidence of placenta previa or subchorionic fluid collections. SL:01 at 2133 Reported and signed by: Ramin Louis MD CC: Bonnie Kaba DO Technologist: Manuela Dougherty RDMS Probe: Trnscrbd D/ (2133) t.AJJ Orig Print D/T: S: 08/16/2019 (2136) [facility] NAME: YUMIKO MEI Radiology Department PHYS: Bonnie Garg DO [address] : 2000 AGE: 19 SEX: F [place] [address] LOC: QuentinDOMINIC PHONE #: [phone] EXAM DATE: 08/16/2019 STATUS: REG FAX #: [phone] RAD NO: Page 1 Signed Report Patient Name: YUMIKO MEI Unit No: [id number] EXAMS: CPT CODE: [id number] [place] LTD [address]44 (Continued) [facility] NAME: YUMIKO MEI SYBIL Radiology Department PHYS: Bonnie GargDO [address] : 2000 AGE: 19 SEX: F [place] [address] LOC: QuentinDOMINIC PHONE #: [phone] EXAM DATE: 08/16/2019 STATUS: REG ER FAX #: [phone] RAD NO: Page 2 Signed ReportTOTAL BHCG (QUANTITATIVE)2019-06-12 04:28:00* Test Item Value Reference Range Interpretation Comme nts BETA HCG (test code = 4360215809) See_Comment [Automated messa ge] The system which generated this result transmitted reference range: Non- female and male patients: <5 mIU/mL. The reference range was not used to interpret this result as normal/abnormal. KINGSLEY (test code = KINGSLEY) Gestational Age?Range (mIU/mL)1-10?Weeks?4 6-60201775-75 Weeks?83567-21122286 -22 Weeks?7480-27876249- 40 Weeks?1531-769024Obw tin has been reported to cause a negative bias, interpret results relative to patient's use of biotin. [facility] WITH [id number] 03:31:00* Test Item Value Reference Range Interpretation Comme nts WBC (test code = 6690-2) See_Comment [Automated messa ge] The system which generated this result transmitted reference range: 4.30 - 11.10 10*3/?L. The reference range was not used to interpret this result as normal/abnormal. RBC (test code = 789-8) See_Comment L [Automated messa ge] The system which generated this result transmitted reference range: 3.93 - 5.25 10*6/?L. The reference range was not used to interpret this result as normal/abnormal. HGB (test code = 718-7) 11.1 g/dL 11.6-15 L HCT (test code = 4544-3) 33.1 % 35.7-45.2 L MCV (test code = 787-2) 86.9 fL 80.6-95.5 MCH (test code = 785-6) 29.1 pg 25.9-32.8 MCHC (test code = 786-4) 33.5 g/dL 31.6-35.1 RDW-SD (test code = 38482-6) 50.8 fL 39-49.9 H RDW-CV (test code = 788-0) 16.0 % 12-15.5 H PLT (test code = 777-3) See_Comment [Automated messa ge] The system which generated this result transmitted reference range: 166 - 358 10*3/?L. The reference range was not used to interpret this result as normal/abnormal. MPV (test code = 33157-1) 11.0 fL 9.5-12.9 NRBC/100 WBC (test code = 4972323857) See_Comment [Automated [employer] ssage] The system which generated this result transmitted reference range: 0.0 - 10.0 /100 WBCs. The reference range was not used to interpret this result as normal/abnormal. NRBC x10^3 (test code = 5158802034) <0.01 See_Comment [Automated messa ge] The system which generated this result transmitted reference range: 10*3/?L. The reference range was not used to interpret this result as normal/abnormal. GRAN MAT (NEUT) % (test code = 770-8) 63.7 % IMM GRAN % (test code = 2689537454) 0.30 % LYMPH % (test code = 736-9) 24.6 % MONO % (test code = 5905-5) 8.2 % EOS % (test code = 713-8) 2.9 % BASO % (test code = 706-2) 0.3 % GRAN MAT x10^3(ANC) (test code = 5382598626) 6.70 10*3/uL 1.88-7.09 IMM GRAN x10^3 (test code = 6624193912) 0.03 10*3/uL 0-0.06 LYMPH x10^3 (test code = 731-0) 2.59 10*3/uL 1.32-3.29 MONO x10^3 (test code = 742-7) 0.86 10*3/uL 0.33-0.92 EOS x10^3 (test code = 711-2) 0.30 10*3/uL 0.03-0.39 BASO x10^3 (test code = 704-7) 0.03 10*3/uL 0.01-0.07 Lab Interpretation (test code = 16817-3) Abnormal [facility] CenterLipase, [id number] 03:25:00* Test Item Value Reference Range Interpretation Comme nts LIPASE (test code = 4103384966) 36 U/L 0-220 Lab Interpretation (test cod e = 92552-1) Normal [facility] CenterUrinalysis2019-08-14 03:25:00* Test Item Value Reference Range Interpretation Comme nts APPEARANCE (test code = 8478936468) Clear Clear COLOR (test code = 2320893821) Yellow Yellow PH (test code = 2553352529) 4.8-8.0 SP GRAVITY (test code = 7408735782) 1.003-1.030 GLU U QUAL (test code = 8829225734) Negative Negative BLOOD (test code = 9769588974) Negative Negative KETONES (test code = 7881823796) Negative Negative PROTEIN (test code = 2887-8) Negative Negative UROBILIN (test code = 7691704042) 0.2 mg/dL See_Comment [Automated [employer] ge] The system which generated this result transmitted reference range: 0-1.0 mg/dL. The reference range was not used to interpret this result as normal/abnormal. BILIRUBIN (test code = 6883038228) Negative Negative NITRITE (test code = 4174580688) Negative Negative LEUK DAVIS (test code = 8183245555) Trace Negative A RBC/HPF (test code = 2082618652) See_Comment [Automated [employer] ge] The system which generated this result transmitted reference range: 0 - 3 HPF. The reference range was not used to interpret this result as normal/abnormal. WBC/HPF (test code = 0934281034) See_Comment [Automated [employer] ge] The system which generated this result transmitted reference range: 0 - 5 HPF. The reference range was not used to interpret this result as normal/abnormal. BACTERIA (test code = 6976351770) Moderate Negative A AMORPHOUS (test code = 0613161965) >10 mg/dL HPF SQ EPITH (test code = 8592901957) HPF Lab Interpretation (test code = 25490-1) Abnormal [facility] CenterComplete Metabolic [id number] 03:24:00* Test Item Value Reference Range Interpretation Comme nts NA (test code = 4399963857) 141 mmol/L 135-145 K (test code = 2620115139) 3.8 mmol/L 3.5-5 CL (test code = 8786406527) 110 mmol/L 98-108 H CO2 TOTAL (test code = 8823290146) 20 mmol/L 23-31 L AGAP (test code = 7261437086) 2-16 BUN (test code = 6767427393) 9 mg/dL 7-23 GLUCOSE (test code = 7570750584) 81 mg/dL 70-110 CREATININE (test code = 6239978705) 0.54 mg/dL 0.5-1.04 TOTAL BILI (test code = 3890126654) 0.2 mg/dL 0.1-1.1 CALCIUM (test code = 7990383149) 8.7 mg/dL 8.6-10.6 T PROTEIN (test code = 2350919809) 7.2 g/dL 6.3-8.2 ALBUMIN (test code = 5546164623) 3.8 g/dL 3.5-5 ALK PHOS (test code = 1461890954) 66 U/L 34-122 ALT(SGPT) (test code = 1765481677) 14 U/L 9-51 AST(SGOT) (test code = 0058839310) 32 U/L 13-40 eGFR Calculation (Non-) (test code = 0194165579) mL/min/1.73m2 eGFR Calculation () (test code = 1826153449) mL/min/1.73m2 KINGSLEY (test code = KINGSLEY) Association of Glomerular Filtration Rate (GFR) and Staging of Kidney Disease*+ + + +| GFR (mL/min/1.73 m2)?| With Kidney Damage?|?Without Kidney Damage+ --------+ --------+ +|?>90?|?S tage one?|? Normal?+ ---------+ ---------+ +|?60-89? |?Stage two?|? Decreased GFR? + --+ --+ ------+|?30-59?|?Stage three?|? Stage three? + --+ --+ ------+|?15-29?|?Stage four? |? Stage four?+ -------+ -------+ +|?<15 (or dialysis)?|?Stage five? |? Stage five?+ -------+ -------+ +*Each stage assumes the associated GFR level has been in effect for at least three months.?Stages 1 to 5, with or without kidney disease, indicate chronic kidney disease.Notes: Determination of stages one and two (with eGFR >59mL/min/1.73 m2) requires estimation of kidney damage for at least three months as defined by structural or functional abnormalities of the kidney, manifested by either:Pathological abnormalities or Markers of kidney damage (including abnormalities in the composition of the blood or urine or abnormalities in imaging tests). Lab Interpretation (test code = 86304-9) Abnormal [facility] CenterGLUBED2019-07-03 14:27:00* Test Item Value Reference Range Interpretation Comme nts GLUBED (test code = GLUBED) 79 mg/dL 65-110 N PROTHROMBIN [id number] 14:20:00* Test Item Value Reference Range Interpretation Comme [facility] PROTHROMBIN TIME PATIENT (te st code = PTP) 12.6 secs 10.4-12.4 H THROMBOPLASTIN TIME [id number] 14:20:00* Test Item Value Reference Range Interpretation Comme nts THROMBOPLASTIN TIME PARTIAL (test code = PTT) 29.8 secs 22-38 N COMPREHENSIVE METABOLIC [id number] 14:09:00* Test Item Value Reference Range Interpretation Comme nts SODIUM (test code = NA) 135 mEq/L 135-145 N POTASSIUM (test code = K) 4.1 mEq/L 3.5-5.0 N CHLORIDE (test code = CL) 102 mEq/L 100-115 N CARBON DIOXIDE (test code = CO2) 25 mEq/L 22-31 N ANION GAP (test code = GAP) 11.70 10-20 N GLUCOSE (test code = GLU) 86 mg/dL 65-110 N BLOOD UREA NITROGEN (test co de = BUN) 9 mg/dL 7-18 N GLOMERULAR FILTRATION RATE ( test code = GFR) 106 ml/min >60 N CREATININE (test code = CREAT) 0.7 mg/dL [...] 15 units/L 12-78 N ALKALINE PHOSPHATASE TOTAL ( test code = ALKP) 79 units/L 46-116 N CREATINE KINASE (CK)2019-05-01 14:09:00* Test Item Value Reference Range Interpretation Comme nts CREATINE KINASE (CK) (test c ode = CK) 50 Units/L 26-192 N [id number] 14:09:00* Test Item Value Reference Range Interpretation Comme nts TROPONIN-I (test code = TROPI) <0.017 ng/mL <0.056 N UA RFLX MICR CULT IF WZQFUYVRF9600-31-38 13:52:00* Test Item Value Reference Range Interpretation Comme nts UA COLOR (test code = COLU) YELLOW YELLOW UA APPEARANCE (test code = APPU) Slightly-Cloudy CLEAR UA GLUCOSE DIPSTICK (test code = DGLUU) NEGATIVE NEG UA BILIRUBIN DIPSTICK (test code = BILU) NEGATIVE NEG UA KETONE DIPSTICK (test cod e = KETU) NEGATIVE NEG UA SPECIFIC GRAVITY (test code = SGU) 1.012 1.001-1.035 N UA BLOOD DIPSTICK (test code = MARY) NEG NEG UA PH DIPSTICK (test code = PREMA) 8.0 5-9 UA PROTEIN DIPSTICK (test code = PROU) NEGATIVE NEG UA UROBILINIOGEN DIPSTICK (test code = URO) NEGATIVE mg/dL NEG UA NITRITE DIPSTICK (test code = ANDREZ) NEG NEG UA LEUKOCYTE ESTERASE DIPSTICK (test code = LEUU) NEG NEG UA WBC (test code = WBCU) 0-2 #/hpf NONE SEEN UA RBC (test code = RBCU) 0-2 #/hpf NONE SEEN UA EPITHELIAL CELLS (test code = EPIU) RARE #/HPF RARE-FEW UA MUCUS (test code = MUCU) RARE NONE SEEN Indication for culture: Dysuria/FrequencyCBC W/AUTO MVOW4896-17-02 13:46:00* Test Item Value Reference Range Interpretation Comme nts WHITE BLOOD CELL (test code = WBC) [...] pg 27-35 N MEAN CELL HGB CONCETRATION ( test code = MCHC) 32.7 gm/dL 32.2-34.1 N RED CELL DISTRIBUTION WIDTH (test code = RDW) 17.3 % 12.4-16.5 H PLATELET COUNT (test code = PLT) 329 K/mm3 133-385 N IMMATURE PLATELET FRACTION ( test code = IPF) 0.0 % 0.0-10.8 N MEAN PLATELET VOLUME (test c ode = MPV) 10.5 fl 9.1-12.7 N NEUTROPHIL % (test code = NT%) 61.7 [...] = BA#) 0.0 K/mm3 RBC MORPHOLOGY REQUIRED (charu t code = RBCM) NORMAL NORMAL PLATELET MORPHOLOGY REQUIRED (test code = PLTMR) NORMAL NORMAL - CT HEAD/BRAIN W/O EBPS5131-95-04 13:33:00Patient Name: YUMIKO MEI Unit No: [id number] EXAMS: CPT CODE: [id number] CT HEAD/BRAIN W/O CONT 28685 CT HEAD WITHOUT CONTRAST: 05/01/2019 COMPARISON: None CLINICAL HISTORY: fall One or more of the following dose techniques were utilized; automated exposure control, adjustment of the mA and/orkV according to patient size, and/or utilization of iterative reconstruction technique. DLP: 641.50mGy-cm. Examination was performed on an emergency basis. The ventricles were normal in size, shape and position. No evidence of extra-axial fluid collection or midline shift. No areas of abnormal attenuation or acute intracranial hemorrhage were identified. Small amount of fluid/mucosal thickening identified in the posterior left maxillary sinus. No acute calvarial abnormality was seen. CONCLUSION: No evidence of acute intracranial abnormality. Electronically Signed by Doe Serrano MD on 12/2018 at 1333 Reported and signed by: Doe Serrano MD CC: Susan Fajardo MD; [facility] Technologist: Janie Pace, RT, CT CTDI: 40.09 DLP: 641.50 Trnscrbd D/ (1333) t.ROBLESR.AJ13 [facility] NAME: YUMIKO MEI Radiology Department PHYS: Susan Mackey MD [address] : 2000 AGE: 19 SEX: F [place] [address] LOC: QuentinERS PHONE #: [phone] EXAM DATE: 05/01/2019 STATUS: REG ER FAX #: [phone] RAD NO: Page 1 Signed Report 1 Patient Name: YUMIKO MEI Unit No: [id number] EXAMS: CPT CODE: [id number] CT HEAD/BRAIN W/O CONT 64667 (Continued) Orig Print D/T: S: 05/01/2019 (1336) [facility] NAME: YUMIKO MEI SYBIL Radiology Department PHYS: Susan Mackey MD [address] : 2000 AGE: 19 SEX: F [place], [place] [address] LOC: Miko.ERS PHONE #: [phone] EXAM DATE: 05/01/2019 STATUS: REG ER FAX #: [phone] RAD NO: Page 2 Signed Report 1- XR CHEST 1 V 2019-05-01 13:05:00Patient Name: YUMIKO MEI Unit No: [id number] EXAMS: CPT CODE: [id number] XR CHEST 1 V 47643DSIVW 1 VIEW: 05/01/2019 COMPARISON: NONE CLINICAL HISTORY: WEAKNESS FINDINGS: The cardiovascular silhouette is normal in size. No infiltrates or pulmonary edema is present. No pleural effusions are see n. IMPRESSION: No acute pulmonary disease. at 1305 Reported and signed by: Doe Serrano MD CC: Susan Fajardo MD; [facility] Technologist: RT Nithya Trnscrbd D/ (1590) tWILFRIDORAidanAJ13 Orig Print D/T: S: 05/01/2019(9949) [facility] NAME: YUMIKO MEI SYBIL Radiology Department PHYS: Susan Santa MD [address] : 2000 AGE: 19 SEX: F [place], [place] [address] LOC: F.ERS PHONE #: [phone] EXAM DATE: 05/01/2019 STATUS: REG ER FAX #: [phone] RAD NO: Page 1 Signed Report Notes Date/Time Note Provider Source 2023-06-27 14:23:20 Usa+NVBDLihoPbAVMoAaCTERMXt27Ej/tSo7q+ hHWBanRanMklN7KwwpIfIy1w7z6117-14-27B4 4:23:20 Noted, thank you. 27620-6Xhgsgepag encounter RazlRF5025-18-04Z09:24:07Telephone encounter NoteTXT1.2.840.784536.1.13.104.2.7.2.7 57005|[id number] for patient ozvu50899-0FmpyXS250289726Ntx M Navarro RNUTMBUTMB - [address] XqetVrtwmwpzuMawmxqdsrUJPA0315481009BR DVCZKXMWTTRJQYTGQDKV0259-91-71O69:24:0 71.2.840.818513.1.72.3.15|1.2.840.1143 50.1.13.104.2.7.2.727879_[id number] Bess Parmar RN [facility] 2023-06-27 10:21:12 7ofzW54FyEVWcO37iIX4tE06lCzsgliUUpI/D+ gTIYKHkwP6TWYp50bcRjlcBbMC9030-94-59L2 0:21:12 Attempted to call patient as requested to review concerns with Provider physical exam. Documentation reviewed and corrected for accuracy. No lumps/mass was palpated during clinic exam. Patient reports lumps/mass that is new to her but possible dense breast tissue palpated by provider.Screening US ordered to evaluate patient concerns and confirm/determine significance of density [place] [address]-4Rocbxxdha encounter RjhyBR7633-50-78J34:25:26Telephone encounter NoteTXT1.2.840.212802.1.13.104.2.7.2.7 28345|[id number] for patient scwg49327-7DbnvQXCP-TSKZV PRACTITIONER MIDLEVEL PROVIDERNP-NURSE PRACTITIONER MIDLEVEL PROVIDER[address] HmobS[id number] SIYQPSSZFVLQJHNMCNKT1743-51-26K40:25:2 61.2.840.149988.1.72.3.15|1.2.840.1143 50.1.13.104.2.7.2.727879_[id number] [employer] DRIVER-NURSE PRACTITIONER MIDLEVEL PROVIDER [facility] 2023-06-20 14:57:29 MWmiEaRo2OLKxWhWQ8H0WfwZucCTQMMSXy7N7s TmweTEuqOzs3t1va3F/dgj5O/z3111-90-54Z2 4:57:29 Patient wanted to go over results for her cbc, results given. Pt upset that she did not receive a call today from her provider about her results. Informed patient calls are usually not made unless something comes back abnormal. Patient is also upset that radiology department has not called her to schedule her USG. Informed patient will have ethylbenzene cracking supervisor look over chart and talk with patient. Call transferred to ethylbenzene cracking supervisor. 37819-2Ynpdunmsi encounter ZkloXQ5062-64-72V02:59:38Telephone encounter NoteTXT1.2.840.687917.1.13.104.2.7.2.7 07403|[id number] for patient spbg23210-9IyevVC169623311Hdodmfnm Garcia [address]DimvRwyzcgprcPzrixexipUPWS9836160601LW SSOKYVHKWWKEBZUIZOLG4822-81-69E18:59:3 81.2.840.319114.1.72.3.15|1.2.840.1143 50.1.13.104.2.7.2.727879_[id number] Amanda Henriquez [facility] 2023-06-20 14:19:33 sAfG2KEaFjkkYSNhy25jTO8IFZ8otEoW7xzp3g XsQXj9FurP8doT4s7laEuBbEu+2449-26-36N7 4:19:33 Attempted to call patient regarding mychart message wanting to discuss results, no answer, [place]. [address]-5Pzgquiypc encounter YlgwEF8211-53-24X24:20:14Telephone encounter NoteTXT1.2.840.985185.1.13.104.2.7.2.7 92417|[id number] for patient qyzx89039-4AyqkSIQMVTJTAT[address] StreetTXTX7755577555US WNKXQCFFCHSNKUVQGCJC3754-76-75Q57:20:1 41.2.840.476613.1.72.3.15|1.2.840.1143 50.1.13.104.2.7.2.727879_[id number] [facility] 2023-06-13 15:00:23 roJ7+2YcBJY21ZtJ/jEK7B8d6TKRsuWfZdg5j3 0k6uIEqv+dx2OqdW13Posm12yk7433-70-74D8 5:00:23 Patient scheduled for 06/19/23 02819-5Stdximfjv encounter KtryJC2145-78-47Y62:00:42Telephone encounter NoteTXT1.2.840.562860.1.13.104.2.7.2.7 82457|[id number] for patient igks64208-5ZmzqIS40986716Dqtpokb [address]TXTX[address]5577555US URTANCSTFTIKNYOHXYXU1667-12-27F42:00:4 21.2.840.692511.1.72.3.15|1.2.840.1143 50.1.13.104.2.7.2.727879_[id number] Vasiliy Amaral [facility] 2023-06-13 14:36:01 dTwHJN4W5wFjfnJAKSdGU7Tv4aF2uAOLO0U3ZS oQ2T0U3bHgzZGqjOcwOUNMDNhb5518-81-09Y6 4:36:01 Yumiko Mei is a 23 year old femalePt returning missed call. Please advise 34548-4Nponfujor encounter FtlgCM4865-60-42Z98:36:30Telephone encounter NoteTXT1.2.840.869948.1.13.104.2.7.2.7 61382|[id number] for patient hqac35448-2OhhbRC804879688Ehzshba R McDani[address]TXTX[address]5577555US ZFPSYXYLRNASNDIUPQWA0713-65-04V01:36:3 01.2.840.763303.1.72.3.15|1.2.840.1143 50.1.13.104.2.7.2.727879_[id number] Catarino Morris [facility] 2023-06-13 14:25:59 0Ueggjfe2Z8odsScjytTOTDjHxCWqLADJfpJgN o0hacn/q7dtU1QMOU7CbJ9hrpK6066-97-91W2 4:25:59 Yumiko Mei is a 23 year old femaleAttempted to call, no answer. Left voicemail. 00389-8Yawbdwzxt encounter QzrzRZ1301-16-01E88:29:31Telephone encounter NoteTXT1.2.840.629092.1.13.104.2.7.2.7 33682|[id number] for patient jpxp48644-2PtkdMB387368302Zws M Navarro RN[id number] EWZWSNXQPTUEBCNWPOGO4817-40-46A48:29:3 11.2.840.618537.1.72.3.15|1.2.840.1143 50.1.13.104.2.7.2.727879_[id number] Bess Parmar RN [facility] 2023-06-13 11:17:32 LpaEF+cvHRW/HhgUcqCTLT5FmmwA4hu2DCgLIe f2Cl9+yzlu+673tXo8qBy/6uc81598-53-37H1 1:17:32 Yumiko Mei is a 23 year old femalePt calling to make appt and was scheduled 06/27. Pt states multiple lumps in right breast and rash or raised spots on both breasts which she calls a "breast cancer rash". Also states has family history of breast cancer which is why she is concerned and knows what to look for. Please call patient back if she can be seen sooner than 06/27. [phone] 51921-4Otzpbsqwe encounter XuabTT4948-81-41C19:21:29Telephone encounter NoteTXT1.2.840.167492.1.13.104.2.7.2.7 58939|[id number] for patient lqdo39069-2XyvqOZ0686135Vxvon L Martinez[address] FvitUhbxqlmvkTzdjjiqqpIQHT8752964273JL EAPHECCJHJWQEEVRXLRE7773-06-17C21:21:2 91.2.840.881256.1.72.3.15|1.2.840.1143 50.1.13.104.2.7.2.727879_[id number] Mima Doty [facility] 2019-11-16 10:10:00 XDtuczcqnkm00123443tTXyfyC3Kw/sMYUzH/M JGaTM6YDbSLt6St6eL/mqepDFETxXTlK54yMxj JJmcxB48876-76-63A15:10:00 [facility])OB Disch PostpartumREPORT#:[id number] REPORT STATUS: SignedDATE:11/16/19 TIME: 1010 PATIENT: YUMIKO MEI UNIT #: [id number]#: [id number] ROOM/BED: 2037-ADOB: [birth year] AGE: 19 SEX: F ATTEND: Bonnie Kaba DOADM AUTHOR: Nataly Mcduffie MD * ALL edits or amendments must be made on the electronic/computer document * Subjective SubjectiveAdmission EGA (wks/days): 37 weeksEGA at delivery (wks/days): 37 weeks (1d)Status/day: post (day 2)Patient reports: Patient reports: Yes: normal lochia, pain management effective, tolerating po well, voiding well. No: complaints. Nursing reports: Nursing reports: No: complaints. Objective GeneralVS:Vital Signs Date Temp Pulse Resp B/P B/P Mean Pulse Ox FiO2 11/15 98.5 82 18 114/74 Last Documented: Result Date Time B/P 114/74 11/15 164 Temp 98.5 11/15 1641 Pulse 82 11/15 1641 Resp 18 11/15 1641 B/P Mean 93.0 11/14 2057 Patient Weight Weight (lb): 205Weight (oz): Weight (kg): 92.986 Notes:resting comfortably in bed, infant and partner at bedside Physical ExamBreasts: Breasts: filling, soft Flow: none Nipples: intact Feeding: formulaLungs: no increased work of breathing Neuro: Exam: alert, oriented x3, normal speechAbdomen: post gravid, soft, no abnormal tenderness, no guardingIncision site: noneFundus: firm, at the umbilicusLochia: normalLower extremities: Edema: none ResultsFindings/Data:Laboratory Tests: 11/15 0353 Hematology WBC (6.6 - 12.1 K/mm3) 17.2 H RBC (3.45 - 5.01 M/mm3) 3.30 L Hgb (10.7 - 13.9 g/dL) 9.5 L Hct (32.1 - 42.1 %) 30.0 L MCV (84.1 - 94.8 fL) 91 MCH (27 - 35 pg) 28.8 MCHC (32.2 - 34.1 gm/dL) 31.7 L RDW (12.4 - 16.5 %) 13.8 Plt Count (133 - 385 K/mm3) 276 MPV (9.1 - 12.7 fl) 11.5 Neut % (Auto) (56.5 - 79.4 %) 78.3 Lymph % (Auto) (14.3 - 34.3 %) 12.3 L [place] % (Auto) (5.1 - 10.4 %) 8.3 Eos % (Auto) (0.1 - 3.0 %) 0.4 Baso % (Auto) (0.1 - 1.0 %) 0.2 Neut # (Auto) (K/mm3) 13.5 Lymph # (Auto) (K/mm3) 2.1 [place] # (Auto) (K/mm3) 1.4 Eos # (Auto) (K/mm3) 0.07 Baso # (Auto) (K/mm3) 0.0 Immature Plt Fraction (0.0 - 10.8 %) 0.0 Discharge Summary Discharge SummaryFree Text A P:19 yo s/p , PPD 2. She has a normal exam, and normal, stable VS. She isanemic s/p delivery, no evidence of ongoing bleeding. Will dc home on oral iron Date of admission:Date of admission: 11/13/19 Admission diagnosis: induction-medically indicHospital course: induction of labor, spontaneous vag delivery, epidural anesthesia, nml postop/postpart careProcedures: spontaneous vaginal delivBaby A: Vaginal delivery: spontaneous status: live born Gender: male 1 minute: 8 5 minutes: 9Nursing data:The data set between the solid lines has been imported from nursing documentation. Any exceptions have been noted below under Provider comments. EGA (weeks/days): 37.1EGA at admit (weeks): Delivery date infant A: 11/14/19 Delivery time infant A: 1859Birthweight (gm) infant A: 2940Feeding preference: Gender A: MaleApgar 1 minute infant A: 8Apgar 5 minutes A: 9Apgar 10 minutes A: __ Provider comments on imported nursing data: [] Plan: routine care, discharge today, Von Willebrand Type 1 Disease - no evidence of delayed PPH, reviewed precatuions with patient Instructions: instr and warnings rev'dDiet: regularActivity and restrictions: up ad getachew, may shower, pelvic restContraception discussed: abstinence for 4-6 weeksDischarge meds:Continue taking these medications:PNV/FE FUM/FA ( MULTIVITAMIN) 1 TAB TAB 1 TABLET ORAL DAILY. FLUTICASONE PROPIONATE/SALMETEROL (ADVAIR DISKUS 100/50 MCG/ACT) 14 INH DISK.W.DEV 1 PUFF INHALATION RT - TWICE DAILY. FERROUS SULFATE (FEOSOL) 325 MG TAB 325 MILLIGRAM ORAL TWICE DAILY. ALBUTEROL (PROAIR HFA 90 MCG/ACT) 90 MCG INHALER Start taking the following new medications:IBUPROFEN (MOTRIN) 600 MG TAB 600 MILLIGRAM ORAL EVERY 6 HOURS NEEDED. as needed for PAIN SCALE 1-3 (USE 1ST) Qty = 30 No Refills Prescriptions: noneRx drug database reviewed: noConsultation(s): Consultation performed: anesthesiaDischarge condition: stableDischarge to: homeFollow up in: 4 weeksDischarge diagnosis: full-term uncomp delivery, Von Willibrands diseaseDischarge management: less than 30 minsTime spent: Time spent with patient (minutes): 15 >50% spent on counseling/coordination of care: yes at 1013 RPT #:[id number] OF REPORT OBObstetric jizg7449-82-77Q09:10:00F.NNNN38794422- 0134AVAvailable for patient hksnKOBGSGISPBCMCM0206-43-52A50:14:12 [facility] 2019-11-15 12:46:00 WNtfwggvzkd60738922eD7wwgBsKEh3Rp/3MOF TuV9Eyj8QE2B2b5TUocNy3ZkstsXJGo8AdQH7D pKynl4s7919-35-88F10:46:00 [facility] ([facility])OB Postpart Progr NoteREPORT#:[id number] REPORT STATUS: SignedDATE:11/15/19 TIME: 1246 PATIENT: YUMIKO MEI UNIT #: [id number]#: [id number] [address] [birth year] AGE: 19 SEX: F ATTEND: Bonnie Kaba DOADM AUTHOR: Tanya Young DO * ALL edits or amendments must be made on the electronic/computer document * Subjective SubjectiveAdmission EGA (wks/days): 37 weeksEGA at delivery (wks/days): 37 weeks (1d)Status/day: post (day 1)Comments:Doing well without complaints. Pain is well controlled. Lochia wnl. Voiding freely. Tolerating reg diet, no n/v. Baby doing well. Objective Nursing Documentation ReviewNursing data:The data set between the solid lines has been imported from nursing documentation. Any exceptions have been noted below under Provider comments. Feeding preference: ____ Provider comments on imported nursing data: [] GeneralVS:Vital Signs Date Temp Pulse Resp B/P B/P Mean Pulse Ox FiO2 11/14-11/15 98.1-98.7 78-116 - 95-141/6-94 71.0-108.0 Last Documented: Result Date Time B/P 112/72 11/15 0749 Temp 98.5 11/15 0749 Pulse 89 11/15 0749 Resp 19 11/15 0749 B/P Mean 93.0 11/14 2057 Patient Weight Weight (lb): 205Weight (oz): Weight (kg): 92.986 Physical ExamNeuro: Exam: alert, oriented x3, normal speechAbdomen: soft, no abnormal tenderness, no guarding, no rebound tendernessIncision site: noneUterus: firm, involution appropriate, non-tenderFundus: firm, at the umbilicus, non-tenderLochia: normalLacerations: Perineal laceration(s): left labial lacerationLower extremities: Edema: none ResultFindings/data:Laboratory Tests: 11/15 0353 Hematology WBC (6.6 - 12.1 K/mm3) 17.2 H RBC (3.45 - 5.01 M/mm3) 3.30 L Hgb (10.7 - 13.9 g/dL) 9.5 L Hct (32.1 - 42.1 %) 30.0 L MCV (84.1 - 94.8 fL) 91 MCH (27 - 35 pg) 28.8 MCHC (32.2 - 34.1 gm/dL) 31.7 L RDW (12.4 - 16.5 %) 13.8 Plt Count (133 - 385 K/mm3) 276 MPV (9.1 - 12.7 fl) 11.5 Neut % (Auto) (56.5 - 79.4 %) 78.3 Lymph % (Auto) (14.3 - 34.3 %) 12.3 L [place] % (Auto) (5.1 - 10.4 %) 8.3 Eos % (Auto) (0.1 - 3.0 %) 0.4 Baso % (Auto) (0.1 - 1.0 %) 0.2 Neut # (Auto) (K/mm3) 13.5 Lymph # (Auto) (K/mm3) 2.1 [place] # (Auto) (K/mm3) 1.4 Eos # (Auto) (K/mm3) 0.07 Baso # (Auto) (K/mm3) 0.0 Immature Plt Fraction (0.0 - 10.8 %) 0.0 Diagnosis, Assessment Plan Diagnosis, Assessment PlanAssessment: nml progressPlan: routine care, discharge tomorrow, Von Willebrand Type 1 Disease- at risk for delayed PPH, continue to monitor closely. [facility]. at 1248 RPT #:[id number] OF REPORT PRProgress Hfnq6449-80-09P47:46:00F.KQIE69772292- 0295AVAvailable for patient mpxnNCMZCHADHCZSZF2606-21-97G02:48:30 [facility] 2019-11-14 19:17:00 GPszeeaqdzn67418851ZsCJxgbM/k8/FaOXf0X xMTSEKgOhPOrvi+5mOo+hStIf602I+Y4w28Eo0 NjPn41t9033-58-28E33:17:00 [facility] ([facility])OB Delivery NoteREPORT#:[id number] REPORT STATUS: SignedDATE:11/14/19 TIME: 1916 PATIENT: YUMIKO MEI UNIT #: [id number]#: [id number] ROOM/BED: 020-ADOB: [birth year] AGE: 19 SEX: F ATTEND: Bonnie Kaba AUTHOR: Tanya Young DO * ALL edits or amendments must be made on the electronic/computer document * OB Delivery Pre-deliveryGBS status: GBS status: positive Prophylaxis administered: penicillinNewborn evaluation at delivery: NRP certified personnelAdmission EGA (wks/days): 37 weeksEGA at delivery (wks/days): 37 weeks (1d) GeneralVS:Last Documented: Result Date Time B/P Mean 91.0 11/14 1827 B/P 115/76 11/14 182 Pulse 100 11/14 1827 Temp 98.1 11/14 1653 Resp 18 11/14 165 Membranes: AROMROM date: 11/14/19ROM time: 1245Amniotic fluid: clear Baby A InformationBaby A information Delivery date: 11/14/19 status: live born Wt of baby (grams): 2940 Gender: male 1 minute: 8 5 minutes: 9 Presentation: vertexABG details Baby A Cord blood gases: not collectedNuchal cord Baby A Nuchal cord: no Vaginal DeliveryVaginal delivery Labor: induced Medications/Devices used: oxytocin, cervidil Vaginal delivery: spontaneous Amniotic fluid: clear Anesthesia type: epidural anesthesia Episiotomy: none Episiotomy repair: not applicable Laceration repair: yes Episiotomy/laceration suture: 3-0 (vicryl) Placenta: spontaneous, intact Post delivery meds used: oxytocin Count: correct Mother's condition: mother stable 's condition: stable in roomLacerations: Perineal laceration(s): left labial lacerationExtraction details OVD performed: noManeuver(s): Action: Frances maneuverShoulder dystocia present: no Blood Loss/DetailsEBL (ml's): 350 at 1920 RPT #:[id number] OF REPORT OBObstetric aeza0052-99-34G37:17:00F.RORG56130910- 0389AVAvailable for patient hqlkDNJOXYXFAWSFFZ3817-52-16G00:20:27 [facility] 2019-11-14 12:49:00 ARewpqryual78440495OI2NA8VNTN39RYetM1l KqQVTMzMlo+Y/QtPQwkN2Pi/eHQiGXZ6y8hxB7 fz8LUgC5748-66-13L28:49:00 [facility] ([facility])Clinical NoteREPORT#:[id number] REPORT STATUS: SignedDATE:11/14/19 TIME: 1249 PATIENT: YUMIKO MEI UNIT #: [id number]#: [id number] ROOM/BED: [facility]-ADOB: [birth year] AGE: 19 SEX: F ATTEND: Bonnie Kaba DOADM AUTHOR: Tanya Young DO * ALL edits or amendments must be made on the electronic/computer document * Clinical NoteNote:S: Pt resting comfortably s/p epidural. No complaints O:Vital Signs: Date Time Temp Pulse Resp B/P B/P Pulse O2 O2 Flow FiO2 Mean Ox Delivery Rate 11/14 1158 87.0 11/14 1158 74 108/76 11/14 1144 83.0 11/14 1144 81 112/67 11/14 1130 87.0 11/14 1130 74 110/72 11/14 1113 77.0 11/14 1113 74 101/63 11/14 1058 86.0 11/14 1058 87 117/72 11/14 1044 78.0 11/14 1044 84 113/57 11/14 1028 78.0 11/14 1028 75 106/59 11/14 1013 78.0 11/14 1013 78 105/55 11/14 0958 92.0 11/14 0958 86 115/79 11/14 0943 87.0 11/14 0943 85 111/74 11/14 0928 88.0 11/14 0928 77 114/72 11/14 0913 97.0 11/14 0913 88 117/82 11/14 0858 84.0 11/14 0858 75 116/64 11/14 0844 93.0 11/14 0844 88 126/72 11/14 0838 82.0 11/14 0838 90 108/67 11/14 0829 81.0 11/14 0829 76 109/63 11/14 0820 92.0 11/14 0820 72 125/70 11/14 0813 63.0 01/16 0813 78 85/50 / 0759 82.0 11/14 0759 76 107/68 11/14 0743 82.0 11/14 0743 74 105/69 11/14 0728 77.0 / 0728 98.0 72 18 99/63 / 0714 72.0 / 0714 67 97/55 /16 0659 72.0 / 0659 74 102/50 11/14 0643 76.0 11/14 0643 83 103/62 16 0629 78.0 / 0629 75 104/67 11/14 0613 80.0 11/14 0613 72 103/67 11/14 0558 80.0 11/14 0558 80 103/66 11/14 0543 74.0 11/14 0543 77 100/57 11/14 0528 75.0 11/14 0528 81 101/62 11/14 0513 76.0 11/14 0513 67 104/61 11/14 0458 69.0 11/14 0458 73 92/53 11/14 0444 71.0 11/14 0444 78 97/56 11/14 0428 78.0 11/14 0428 74 105/65 11/14 0408 85.0 11/14 0408 81 113/67 11/14 0405 87.0 11/14 0405 74 114/71 11/14 0353 98.1 11/14 0353 88.0 11/14 0353 72 117/74 11/14 0349 75.0 11/14 0349 82 108/55 11/14 0344 98.0 11/14 0344 85 134/78 11/13 210 96.0 11/13 2100 98.5 84 124/77 SVE: 4/50/-2, AROM clr fluidFHTs: 130, mod jeffrey, +accel, neg decelToco: ctx q 2-3mins 19yo at 37wk1d by LMP c/w 9wk US with h/o VWD Type 1, Asthma presents for scheduled IOL 2/2 VWD h/o elevated S/D Ratio 1. IOL-s/p cervidil, s/p AROM clr fluid at 1245pm, continue pitocin 2x2s. -GBS Positive - PCN prophylaxis-Cephalic, EFW by US on 10/31 5lb3oz, S/D ratio of 2.6 at that time 2. Von Willebrand Type 1 Disease-f/b Dr. Moses and Dr. Mitchell (Heme at [facility])-Per recommendations, will check Factor VIII activity on admission. If level is >50, plan to recheck . If <50, will give DDAVP 0.3mg/kg prior to delivery, and [id number] to maintain level >50-Level wnl on admission-Will monitor closely for bleeding precautions 3. Asthma - well controlled with Advair albuterol prn. at 1251 RPT #:[id number] OF REPORT CLClinical [id number]:49:00F.[id number] for patient [id number]:51:33 [facility] 2019-11-13 20:45:00 [id number] Qfextpizkyx/1vIdWU4oW9FqR9BtS4x3EHCiaf [id number]:45:00 [facility] ([facility])OB Admission / H PREPORT#:[id number] REPORT STATUS: SignedDATE:11/13/19 TIME: 2044 PATIENT: YUMIKO MEI UNIT #: [id number]#: [id number] ROOM/BED: 020-ADOB: [birth year] AGE: 19 SEX: F ATTEND: Bonnie Kaba DOADM AUTHOR: Tanya oYung DO * ALL edits or amendments must be made on the electronic/computer document * OB Admission H P HxChief complaint: scheduled inductionHPI:19yo at 37wk0d by LMP c/w 9wk US presents for scheduled IOL 2/2 Von Willebrand Disease Type 1 and h/o elevated S/D ration on US. She began PNC with Dr. Thea at 9wks. She had normal routine OB labs includinga normal NIPT testing, and normal 1hr GTT. She is s/p flu shot. She also has a h/o asthma which is stable with albuterol use 1-2x wkly. She did have a syncopalepisode at 8wks with subsequent cardio workup including normal Echo and holter monitor in May. She is followed by [facility] (Dr. Moses), and [facility] for her VWD. She reports a h/o nose bleeds, she has received desmopressin during a tooth extraction in the past. history: : 1 Term: 0 : 0 Abortus: 0 Living children: 0 Complications (prev preg): none Previous : noneCurrent : LMP: 02/27/19 EDC: 12/04/19 Admission EGA (wks/days): 37 weeks EGA based on: LMP, ultrasound, 1st trimesterConditions of : VWD Type 1 , elevated S/D ratioLabs: Blood type: O Rh: positive Rubella: non-immune Hepatitis B: negative HIV: negative STD: negative Syphilis: currently negative GBS: positiveGenetic testing: NIPT neg Past medical history: asthma, Von Willebrand Type 1 Past surgical history: tooth extractionSocial history: no alcohol use, no tobacco use, no drug useMedications:Home Medications:PNV/FE FUM/FA ( MULTIVITAMIN) 1 TAB PO DAILY FLUTICASONE PROPIONATE/SALMETEROL (ADVAIR DISKUS 100/50 MCG/ACT) 1 PUFF INH RTBID FERROUS SULFATE (FEOSOL) 325 MG PO BID ALBUTEROL (PROAIR HFA 90 MCG/ACT) AllergiesCoded Allergies:No Known Allergies (08/16/19) Review of SystemsAll systems rev neg: except as marked Objective GeneralVS:Patient Weight Weight (lb): 205Weight (oz): Weight (kg): 92.986 Physical ExamNeuro: Exam: alert, oriented x3, normal speechAbdomen: gravid, soft, no abnormal tenderness, no guardingPelvic exam: Pelvis clinically adequate: yesMembranes: Membranes: IntactBaby A: Baby A baseline: 140 bpm Baby A variability: moderate 6-25 bpm Baby A accelerations: 15 X 15 Baby A decelerations: none Baby A FHR category: category 1 Diagnosis, Assessment Plan Diagnosis, Assessment PlanFree Text A P:19yo at 37wk0d by LMP c/w 9wk US with h/o VWD Type 1, Asthma presents for scheduled IOL 2/2 VWD h/o elevated S/D Ratio 1. IOL-Hobbs score unfavorable, will place cervidil overnight for ripening, then planto start pitocin 2x2s and AROM -FHTs category 1 -GBS Positive - will start PCN prophylaxis-Cephalic, EFW by US on 10/31 5lb3oz, S/D ratio of 2.6 at that time 2. Von Willebrand Type 1 Disease-f/b Dr. Moses and Dr. Mitchell (Heme at [facility])-Per recommendations, will check Factor VIII activity on admission. If level is >50, plan to recheck . If <50, will give DDAVP 0.3mg/kg prior to delivery, and [id number] to maintain level >50-Will monitor closely for bleeding precautions 3. Asthma - well controlled with Advair albuterol prn. at 2100 RPT #:[id number] OF REPORT HPHistory and physical kqwutbtofgu0310-72-95K17:45:00F.PDOC20 [id number] for patient qbaaUPZBNNEODWSJEX6737-95-90P12:00:43 [facility] 2019-08-16 19:24:00 [id number] 3+HYa/4GiPdUDs5PL4cy1fZ0/LL8PNuCdXQqTp GGznxtW5724-24-71B74:24:00 [facility] ([facility])EMERGENCY PROVIDER REPORTREPORT#:[id number] REPORT STATUS: SignedDATE:08/16/19 TIME: 1923 PATIENT: YUMIKO MEI UNIT #: [id number]#: [id number] ROOM/BED:AGE: 19 SEX: F PCP PHYS: Bonnie Kaba DOSERVICE AUTHOR: Low Holden MD * ALL edits or amendments must be made on the electronic/computer document * DOMINIC HistoryChief complaint: Vaginal bleedingHPI:19yo G1 at 24 2/7 wk gestation presenting 6 hr after coitus with vaginal bleeding, rn home health than day#1 of her typical menses. No pains.FM+ No fever or chills.Past medical history: Asthma since childhood. Needed prednisone mara at 9 wk gestation, Von Willebrand disease. Presents with menorrhagia and jayson-operatove bleeding.Past surgical history: Resection of leg bone tumor remotelyMedications:Home Medications:Medication Dose/Rte/Freq Days Qty Entered Last Max Daily Dose Reviewed PNV/FE FUM/FA 1 TAB PO DAILY 05/01/19 08/16/19 ( MULTIVITAMIN) 1208 1812Strength: 1 TAB TAB FLUTICASONE 1 PUFF INH RTBID 08/16/19 PROPIONATE/SALMETEROL 1812 (ADVAIR DISKUS 100/50 MCG/ACT)Strength: 14 INH DISK.W.DEV AllergiesCoded Allergies:No Known Allergies (08/16/19) Review of SystemsConstitutional:Denies: chills, fatigue, fever. Respiratory:Denies: pleuritic pain, SOB. Cardiovascular:Denies: chest pain, edema, orthopnea, palpitations. GI:Reports: constipation (Intermittently ), diarrhea (Frequently. Nil today). Denies: vomiting. :Reports: frequency (x 4 weeks). Denies: dysuria. Neuro:Denies: headache, lightheaded, seizure. Objective GeneralVS:Last Documented: Result Date Time B/P Mean 87.0 08/16 1812 B/P 119/68 08/16 1812 Temp 98.4 08/16 1812 Pulse 78 08/16 1812 Resp 18 08/16 1812 Vital Signs Date Temp Pulse Resp B/P B/P Mean Pulse Ox FiO2 08/16 98.4 78 18 119/68 87.0 Patient Weight Weight (lb): Weight (oz): Weight (kg): Physical ExamCardiac: normal rhythm, no clinically sig murmurAbdomen: gravid, soft, no abnormal tenderness, No actively bleeding FHR evaluation: Baseline: 130 bpm FHR category: category 1Lower extremities: Edema: none Warren's sign: negative Calf tenderness: negative ResultFindings/Data:Recent Impressions:ULTRASOUND - US LTD 08/16 1925 Report Impression - Status: SIGNED Entered: 08/16/20192136 IMPRESSION:1. Single living intrauterine gestation.2. Anterior placenta without evidence of placenta previa orsubchorionic fluid collections. SL:01Impression By: Andrea Louis MD Diagnosis, Assessment Plan Diagnosis, Assessment PlanFree Text A P:(1) 19yo primigravida at 24 2/7 weeks gstation with light post-coital bleeding. Last bleed 5-6 hours ago. U/S (as per OBGYN) wnl. Discharge home. at 0030 RPT #:[id number] OF REPORT OBObstetric nafu5988-70-40W24:24:00F.[id number]- [id number] for patient fiaaFMHXTRRNEAWCRP7038-43-63N50:30:49 [facility] 2019-05-22 13:38:00 [id number]+h9LG85r54VH7V vayrtqAL2j2ZDBQlkYVe9ZD359YbiPBFipZkLz TPAjQaA3915-93-68P08:38:00 [facility] ([facility])EMERGENCY PROVIDER REPORTREPORT#:[id number] REPORT STATUS: SignedDATE:05/22/19 TIME: 1338 PATIENT: YUMIKO MEI UNIT #: [id number]#: [id number] ROOM/BED:AGE: 19 SEX: F PCP PHYS: Bonnie Kaba DOSERVREAGAN AUTHOR: Rock Jackson MD * ALL edits or amendments must be made on the electronic/computer document * HPI-General Illness GeneralInitial Greet Date/Time 05/22/19 1236 PresentationChief Complaint wheezing ContextAdditional Wdkphyu28 years old patient past medical hx of asthma never intubated or in the icu, presents complaining of 1 day of sob and wheezing despite several breathing treatments and after completing 5 days of steroids, denies fever, chills or any other complaints. Review of Systems ROS StatementsAll systems rev neg except as marked. Free Text ROS NotesFree Text ROS NotesCONSTITUTIONAL: Normal; negative for fever, weight change, fatigue, or aching.HEENT: Eyes normal; Negative for glasses, cataracts, glaucoma, retinopathy, irritation, or visual field defects. Ears normal; Negative for hearing or balance problems. Nose normal; Negative for runny nose, sinus problems, or nosebleeds. Mouth normal; Negative for dental problems, dentures, or bleeding gums. Throat normal; Negative for hoarseness, difficulty swallowing, or sore throat.CARDIOVASCULAR: Normal; Negative for angina, previous MA, irregular heartbeat, heart murmurs, bad heart valves, palpitations, swelling of feet, high blood pressure, orthopnea, paroxysmal nocturnal dyspnea, or history of stress test, arteriogram, or pacemaker implantation.GASTROINTESTINAL: Normal; Negative for pain, vomiting, heartburn, peptic ulcer disease, change in stool, rectal pain, hernia, hepatitis, gallbladder disease, hemorrhoids, or bleeding.GENITOURINARY: Normal female OR male; Negative for incontinence, UTI, dysuria, hematuria, vaginal discharge, abnormal bleeding, breast lumps, nipple discharge,skin or nipple changes, sexually transmitted diseases, incontinence, yeast infections, or itching.SKIN: Normal; Negative for rashes, keratoses, skin cancers, or acne.MUSCULOSKELETAL: Normal; Negative for back pain, joint pain, joint swelling, arthritis, joint deformity, problems with ambulation, stiffness, osteoporosis, or injuries.NEUROLOGIC: Normal; Negative for blackouts, headaches, seizures, stroke, or dizziness.PSYCHIATRIC: Normal; Negative for anxiety, depression, or phobias.ENDOCRINE: Normal; Negative for diabetes, thyroid, or problems with cholesterol or hormones.HEMATOLOGIC/LYMPHATIC: Normal; Negative for anemia, swollen glands, or blood disorders.IMMUNOLOGIC: Negative; Negative for steroids, chemotherapy, or cancer.VASCULAR: Normal; Negative for varicose veins, blood clots, atherosclerosis, or leg ulcers. Past Medical History - AdultStated Complaint ASTHMAAllergiesCoded Allergies:No Known Allergies (05/01/19) Home MedicationsReported MedicationsPNV/FE FUM/FA ( MULTIVITAMIN) 1 TAB PO DAILY ALBUTEROL (PROAIR HFA 90 MCG/ACT) 1 PUFF INH RTQ4H Review of Nursing Notes Rev avail, and agree Physical Exam Vital SignsVital SignsFirst Documented: Result Date Time Pulse Ox 99 05/22 1240 B/P 126/70 05/22 1240 B/P Mean 88 05/22 1240 O2 Delivery Room air 05/22 1240 Temp 36.7 05/22 1240 Pulse 96 05/22 1240 Resp 16 05/22 1240 Last Documented: Result Date Time Pulse Ox 100 05/22 1422 B/P 114/67 05/22 1422 B/P Mean 82 05/22 1422 O2 Delivery Room air 05/22 1422 Pulse 98 05/22 1422 Resp 19 05/22 1422 Temp 36.7 05/22 1240 Review of Vital Signs Reviewed, Vital signs normal Basic Physical ExamBasic PE GEN: Well appearing/NAD, HEAD: Atraumatic/NC, NECK: Supple, CV: Reg rate rhythm, EXT: No gross abnormality, SKIN: No rashes, warm/dry, NEURO: alert oriented, NEURO: gross movement NL Physical ExamResp/Chest Wheezing/Retractions Wheezing expiratory. Re-Evaluation MDM ED CourseMedication(s) OrderedMedication(s) Ordered:Autonomic Drugs Sig/Tobi Start time Last Medication Dose Route Stop Time Status Admin Albuterol/Ipratropium 3 ML ONCE ONE 05/22 1300 DC 05/22 NEB 05/22 1301 1320 Albuterol/Ipratropium 3 ML ONCE ONE 05/22 1300 DC 05/22 NEB 05/22 1301 1324 Albuterol/Ipratropium 3 ML ONCE ONE 05/22 1300 DC 05/22 NEB 05/22 1301 1329 Patient Discharge Departure Vital Signs/ConditionVital SignsFirst Documented: Result Date Time Pulse Ox 99 05/22 1240 B/P 126/70 05/22 1240 B/P Mean 88 05/22 1240 O2 Delivery Room air 05/22 1240 Temp 36.7 05/22 1240 Pulse 96 05/22 1240 Resp 16 05/22 1240 Last Documented: Result Date Time Pulse Ox 100 05/22 1422 B/P 114/67 05/22 1422 B/P Mean 82 05/22 1422 O2 Delivery Room air 05/22 1422 Pulse 98 05/22 1422 Resp 19 05/22 1422 Temp 36.7 05/22 1240 All vital signs available at the time of this entry have been reviewed. Condition Stable Clinical ImpressionClinical ImpressionPrimary Impression: BronchitisTime of Impression 1356 Disposition DecisionDischarge )( Discharged to Home Yes )( Time 1356 )( Date 05/22/19 at 0609RPT #:[id number] OF REPORTEDEmergency department vyjvqb0180-37-69L19:38:00F.[id number] [id number] for patient iaadYHYGDPIFDJSFFY8240-75-75V15:09:25 [facility] 2019-05-07 11:48:00 [id number]/EMksbWs2P8 rEbaONoHCNiU0rR+Urp1BJkcRznlWO5p4KG+yy hHzxRXF8567-87-82W59:48:00 [facility] ([facility])EMERGENCY PROVIDER REPORTREPORT#:[id number] REPORT STATUS: SignedDATE:05/07/19 TIME: 1148 PATIENT: YUMIKO MEI UNIT #: [id number]#: [id number] ROOM/BED:AGE: 19 SEX: F PCP PHYS: Bonnie Kaba DOSERVREAGAN AUTHOR: Rock Jackson MD * ALL edits or amendments must be made on the electronic/computer document * HPI-General Illness GeneralInitial Greet Date/Time 05/07/19 1139 PresentationChief Complaint Vaginal bleeding ContextAdditional Rxuvgpum8s0 10 weeks while getting a pap smear started noticing some blood , no pelvic pain. no blood clots, no leakage of fluid, no urinary symptoms no other complaints. unkown blood type. Review of Systems ROS StatementsAll systems rev neg except as marked. Free Text ROS NotesFree Text ROS NotesCONSTITUTIONAL: Normal; negative for fever, weight change, fatigue, or aching.HEENT: Eyes normal; Negative for glasses, cataracts, glaucoma, retinopathy, irritation, or visual field defects. Ears normal; Negative for hearing or balance problems. Nose normal; Negative for runny nose, sinus problems, or nosebleeds. Mouth normal; Negative for dental problems, dentures, or bleeding gums. Throat normal; Negative for hoarseness, difficulty swallowing, or sore throat.CARDIOVASCULAR: Normal; Negative for angina, previous MA, irregular heartbeat, heart murmurs, bad heart valves, palpitations, swelling of feet, high blood pressure, orthopnea, paroxysmal nocturnal dyspnea, or history of stress test, arteriogram, or pacemaker implantation.PULMONARY: Normal; Negative for cough, sputum, shortness of breath, wheezing, asthma, or emphysema.GASTROINTESTINAL: Normal; Negative for pain, vomiting, heartburn, peptic ulcer disease, change in stool, rectal pain, hernia, hepatitis, gallbladder disease, hemorrhoids, or bleeding.SKIN: Normal; Negative for rashes, keratoses, skin cancers, or acne.MUSCULOSKELETAL: Normal; Negative for back pain, joint pain, joint swelling, arthritis, joint deformity, problems with ambulation, stiffness, osteoporosis, or injuries.NEUROLOGIC: Normal; Negative for blackouts, headaches, seizures, stroke, or dizziness.PSYCHIATRIC: Normal; Negative for anxiety, depression, or phobias.ENDOCRINE: Normal; Negative for diabetes, thyroid, or problems with cholesterol or hormones.HEMATOLOGIC/LYMPHATIC: Normal; Negative for anemia, swollen glands, or blood disorders.IMMUNOLOGIC: Negative; Negative for steroids, chemotherapy, or cancer.VASCULAR: Normal; Negative for varicose veins, blood clots, atherosclerosis, or leg ulcers. Past Medical History - AdultStated Complaint SENT BY MD FOR BLOOD WORKAllergiesCoded Allergies:No Known Allergies (05/01/19) Home MedicationsReported MedicationsPNV/FE FUM/FA ( MULTIVITAMIN) 1 TAB PO DAILY Discontinued Reported Medications[ CONTROL ] LANSOPRAZOLE ODT (PREVACID SOLUTAB) 15 MG PO DAILY PRN PRN REFLUX [TYLENOL WITH CODEINE] ALBUTEROL (VENTOLIN HFA 90 MCG/ACT) 2 PUFF INH RTQ4H PRN PRN WHEEZING ON EXERTION Review of Nursing Notes Rev avail, and agree Physical Exam Vital SignsVital SignsFirst Documented: Result Date Time Pulse Ox 100 05/07 1138 B/P 121/64 05/07 1138 B/P Mean 83 / 1138 O2 Delivery Room air 05/07 1138 Temp 36.6 / 1138 Pulse 83 / 1138 Resp 16 05/07 1138 Last Documented: Result Date Time Pulse Ox 100 07/ 1237 B/P 118/66 / 1237 B/P Mean 83 / 1237 Temp 36.8 07/ 1237 Pulse 74 07/ 1237 Resp 16 05/07 1237 O2 Delivery Room air 05/07 1138 Review of Vital Signs Reviewed, Vital signs normal Basic Physical ExamBasic PE GEN: Well appearing/NAD, HEAD: Atraumatic/NC, ENT: Membranes moist, NECK: Supple, CV: Reg rate rhythm, ABD: Soft/non-tender, EXT: No gross abnormality, SKIN: No rashes, warm/dry, NEURO: alert oriented, NEURO: gross movement NL Physical ExamAbdomen/GI Text/Dict Notesfhr 145 Patient Discharge Departure Vital Signs/ConditionVital SignsFirst Documented: Result Date Time Pulse Ox 100 05/07 1138 B/P 121/64 / 1138 B/P Mean 83 / 1138 O2 Delivery Room air 05/07 1138 Temp 36.6 05/07 1138 Pulse 83 05/07 1138 Resp 16 05/07 1138 Last Documented: Result Date Time Pulse Ox 100 05/07 1237 B/P 118/66 / 1237 B/P Mean 83 / 1237 Temp 36.8 / 1237 Pulse 74 07/ 1237 Resp 16 05/07 1237 O2 Delivery Room air 05/07 1138 All vital signs available at the time of this entry have been reviewed. Condition Stable Clinical ImpressionClinical ImpressionPrimary Impression: Vaginal bleeding affecting early pregnancyTime of Impression 1232 Disposition DecisionDischarge )( Discharged to Home Yes )( Time 1232 )( Date 05/07/19 at 1322RPT #:[id number] OF REPORTEDEmermercy emergency department department cunirs3733-48-65N85:48:00F.[id number] [id number] for patient nbfsKKYCPSRERLKMJF5592-77-06B35:22:50 [facility] 2019-05-01 13:28:00 [id number]/Mzb0eWyqiR3/kz/kh5 +3gH5Dx6O79nPEQQ3HQXBTB/J6ySxqMc/p3CMC MYK83K77001-12-18B51:28:945210-1128 [facility] [address], [place] [address] PATIENT NAME: YUMIKO MEI ADMIT DATE: 05/01/19ACCOUNT NO: [id number] ROOM NO: AGE: 19 SEX: F ADMITTING PHYSICIAN: ATTENDING PHYSICIAN: Susan Fajardo MD Order:[id number] Reason : DIZZINESS Test Date/Time Stamp:MonMay 01 2019 13:28:10Blood Pressure : / mmHGVent. Rate : 064 BPM Atrial Rate : 064 BPM P-R Int : 130 ms QRS Dur : 084 ms QT Int : 410 ms P-R-T Axes : 044 070 042 degrees QTc Int : 422 ms Normal sinus rhythmPossible Left atrial enlargementBorderline ECGNo previous ECGs availableConfirmed by KARLA MESA MD ([id number]) on 05/05/2019 7:47:30 PM Referred By: Susan Fajardo Confirmed by:KARLA MESA MD at 1947 PATIENT NAME: YUMIKO MEI .CPS20 [id number] for patient alrfQPOEUEZZDHVJTY3656-90-01G25:47:53 [facility] 2019-05-01 12:45:00 [id number]/ NvrkwCYh2zQIAEEooYAlBIxtWI2ZbUZvxOQ7bm DmHf53c1681-16-04D61:45:00 [facility] ([facility])EMERGENCY PROVIDER REPORTREPORT#:[id number] REPORT STATUS: SignedDATE:05/01/19 TIME: 1245 PATIENT: YUMIKO MEI UNIT #: [id number]#: [id number] ROOM/BED:AGE: 19 SEX: F PCP PHYS: Bonnie Kaba DOSERVICE AUTHOR: Susan Fajardo MD * ALL edits or amendments must be made on the electronic/computer document * HPI-Dizziness/Weakness GeneralConfirmed Patient YesPatient Type New patientInitial Greet Date/Time 05/01/19 1157 PresentationChief Complaint Dizzy Free Text HPI NotesFree Text HPI Notes 19yo F without sig. PMH p/w intermittent dizziness x 2 d. Pt describes it as a room-spinning sensation. She states she "thought [she] was going to throw up andfelt really weak". Assoc. nausea. Denies changes in vision, FENG, syncope, abd pain, CP, SOB, or emesis. Review of Systems ROS StatementsAll systems rev neg except as marked. Free Text ROS NotesFree Text ROS Notes-ConstitutionalDenies: Fever. Chills.-GIDenies: Vomiting. Abdominal pain. Diarrhea constipation+Nausea, -GUDenies: Dysuria, Hematuria,-MusculoskeletalDenies: Extremity pain, Ext Swelling-SkinDenies: Rash, Swelling.-NeurologicDenies: Numbness, Tingling.+dizziness-EyesDenies:visual loss, blurred vision-RespiratoryDenies: Shortness of breath. dyspnea on exertion-CardiovascularDenies: Chest pain, Dyspnea on exertion, Edema.-Allergy:Denies Hives, Itching Past Medical History - AdultStated Complaint FALL/DIZZY, 9 WEEKSAllergiesCoded Allergies:No Known Allergies (05/01/19) Home MedicationsReported MedicationsPNV/FE FUM/FA ( MULTIVITAMIN) 1 TAB PO DAILY Discontinued Reported Medications[ CONTROL ] LANSOPRAZOLE ODT (PREVACID SOLUTAB) 15 MG PO DAILY PRN PRN REFLUX [TYLENOL WITH CODEINE] ALBUTEROL (VENTOLIN HFA 90 MCG/ACT) 2 PUFF INH RTQ4H PRN PRN WHEEZING ON EXERTION Review of Nursing Notes Rev avail, and agreePt reports no significant: Past medical historyAdditional Surgical HistoryLLE radiofreq ablationSmoking status for patients 13 years old or older: Former Smoker Physical Exam Vital SignsVital SignsFirst Documented: Result Date Time Pulse Ox 99 05/01 1157 B/P 117/57 05/01 1157 B/P Mean 77 05/01 1157 O2 Delivery Room air 05/01 1157 Temp 36.9 05/01 1157 Pulse 87 05/01 1157 Resp 18 05/01 1157 Last Documented: Result Date Time Pulse Ox 98 05/01 1455 B/P 102/78 05/01 1455 B/P Mean 86 05/01 1455 Pulse 74 05/01 1455 Resp 18 05/01 1455 O2 Delivery Room air 05/01 1342 Temp 36.9 05/01 1342 Review of Vital Signs Reviewed Free Text PE NotesFree Text PE Notes General/Const General/Const Awake, AlertMS Head Head Atraumatic, NormocephalicEyes Eyes Atraumatic, No scleral icterusMS Neck Neck Atraumatic, Full range of motionResp/Chest CTAB, -wCardiovascular RRR, good cap refillExt: moving all 4 ext, no swelling/ cyanosis noted on UE BlSkin Skin no apparent rashes, Dry, IntactNeurologic Neurologic Oriented X3, Speech NLOriented X3, Speech NL, patellar Reflexes equal bilat, EOMI, PERRLA, 3distributions of the facial nerve intact bilat, full ROM of the head, tongue midline, uvula midline,symmetrical smile, shoulder shrug intact, sensation to upper and lower extremities bilat intactdistally and proximally to soft touch, strength 5/5 to BUE and BLE distal and proximal,alternating hand movements intact, nl gait, can rpt no if and or buts Interpretation Diagnostics Lab Results InterpretationResultsLaboratory Tests 05/01/19 1337:[Embedded Image Not Available]Laboratory Tests: 05/01 05/01 1340 1337 Chemistry Sodium (135 - 145 mEq/L) 135 Potassium (3.5 - 5.0 mEq/L) 4.1 Chloride (100 - 115 mEq/L) 102 Carbon Dioxide (22 - 31 mEq/L) 25 Anion Gap (10 - 20) 11.70 BUN (7 - 18 mg/dL) 9 Creatinine (0.5 - 1.0 mg/dL) 0.7 Glomerular Filtr Rate (>60 ml/min) 106 Glucose (65 - 110 mg/dL) 86 POC Glucose (65 - 110 mg/dL) 79 Calcium (8.4 - 10.2 mg/dL) 8.8 Total Bilirubin (0.2 - 1.0 mg/dL) 0.2 AST (15 - 37 units/L) 12 L ALT (12 - 78 units/L) 15 Total Alk Phosphatase (46 - 116 units/L) 79 Total Creatine Kinase (26 - 192 Units/L) 50 Troponin I (<0.056 ng/mL) <0.017 Total Protein (6.3 - 8.2 gm/dL) 7.3 Albumin (3.4 - 4.8 gm/dL) 3.5 Coagulation PT (10.4 - 12.4 secs) 12.6 H PTT ([place]) (22 - 38 secs) 29.8 Hematology WBC (6.6 - 12.1 K/mm3) 8.8 RBC (3.45 - 5.01 M/mm3) 3.99 Hgb (10.7 - 13.9 g/dL) 11.2 Hct (32.1 - 42.1 %) 34.3 MCV (84.1 - 94.8 fL) 86 MCH (27 - 35 pg) 28.1 MCHC (32.2 - 34.1 gm/dL) 32.7 RDW (12.4 - 16.5 %) 17.3 H Plt Count (133 - 385 K/mm3) 329 MPV (9.1 - 12.7 fl) 10.5 Neut % (Auto) (56.5 - 79.4 %) 61.7 Lymph % (Auto) (14.3 - 34.3 %) 27.5 [place] % (Auto) (5.1 - 10.4 %) 7.5 Eos % (Auto) (0.1 - 3.0 %) 2.6 Baso % (Auto) (0.1 - 1.0 %) 0.5 Neut # (Auto) (K/mm3) 5.4 Lymph # (Auto) (K/mm3) 2.4 [place] # (Auto) (K/mm3) 0.7 Eos # (Auto) (K/mm3) 0.23 Baso # (Auto) (K/mm3) 0.0 Immature Plt Fraction (0.0 - 10.8 %) 0.0 Urines Urine Color (YELLOW) YELLOW Urine Appearance (CLEAR) Slightly-Cloudy Urine pH (5 - 9) 8.0 Ur Specific [place] (1.001 - 1.035) 1.012 Urine Protein (NEG) NEGATIVE Urine Glucose (UA) (NEG) NEGATIVE Urine Ketones (NEG) NEGATIVE Urine Blood (NEG) NEG Urine Nitrite (NEG) NEG Urine Bilirubin (NEG) NEGATIVE Urine Urobilinogen (NEG mg/dL) NEGATIVE Ur Leukocyte Esterase (NEG) NEG Urine RBC (NONE SEEN #/hpf) 0-2 Urine WBC (NONE SEEN #/hpf) 0-2 Ur Epithelial Cells (RARE - FEW #/HPF) RARE Urine Mucus (NONE SEEN) RARE Recent Impressions:RADIOLOGY - XR CHEST 1 V 05/01 1250 Report Impression - Status: SIGNED Entered: 05/01/2019 1309 IMPRESSION: No acute pulmonary disease.Impression By: [email or web address] - Doe Serrano MD Lab Imaging StatementLaboratory radiographic studies reviewed and considered in the medical decision-making. Point of Care TestingPulse Oximetry Pulse Ox % 98 On: Room air Interpretation Interpreted by me, Pulse oximetry normal Time 1455 ECG #1 InterpretationECG Documented in MUSE YesDate 05/01/19Time 1330Interpreted by ED physicianNL ECG Interpretation Normal rate, Normal sinus rhythm, No STEMIRate 64 Re-Evaluation MDM Free Text MDM NotesFree Text MDM Gifin06tb F with HPI and PE as above: VSS 1. labs2. CXR3. re-assess Patient Discharge Departure Vital Signs/ConditionVital SignsFirst Documented: Result Date Time Pulse Ox 99 05/01 1157 B/P 117/57 / 1157 B/P Mean 77 / 1157 O2 Delivery Room air 05/01 1157 Temp 36.9 / 1157 Pulse 87 07/ 1157 Resp 18 / 1157 Last Documented: Result Date Time Pulse Ox 98 / 1455 B/P 102/78 07/ 1455 B/P Mean 86 / 1455 Pulse 74 07/ 1455 Resp 18 / 1455 O2 Delivery Room air 05/01 1342 Temp 36.9 07/ 1342 All vital signs available at the time of this entry have been reviewed. Condition Stable Clinical ImpressionClinical ImpressionPrimary Impression: Dizziness Disposition DecisionDischarge )( Discharged to Home Yes )( Time 1456 )( Date 05/01/19 Discharge/Care PlanCounseled Regarding Diagnosis, Lab results, Imaging studies, Need for follow-up,When to return to ED Discharge NoteI have spoken with the patient and/or caregivers. I have explained the patient'scondition, diagnoses and treatment plan based on the information available to meat this time. I have answered the patient's and/or caregiver's questions and addressed any concerns. The patient and/or caregivers have as good an understanding of the patient's diagnosis, condition and treatment plan as can beexpected at this point. The vital signs have been stable. The patient's condition is stable and appropriate for discharge from the emergency department. The patient will pursue further outpatient evaluation with the primary care physician or other designated or consulting physician as outlined in the discharge instructions. The patient and/or caregivers are agreeable to this planof care and follow-up instructions have been explained in detail. The patient and/or caregivers have received these instructions in written format and have expressed an understanding of the discharge instructions. The patient and/or caregivers are aware that any significant change in condition or worsening of symptoms should prompt an immediate return to this or the closest emergency department or a call to 911. at [id number] #:[id number] OF [facility]ED[facility] department [id number] for patient [id number] [facility]
[2024-02-19 12:51] LABS: Specific Gravity 1.027 (1.005-1.030)
[2024-02-19 12:54] LABS: Specific Gravity 1.027 (1.005-1.030); Transitional Epithelial <5 /HPF (None Seen); Urine Bacteria None Seen /HPF (<20); Urine Bilirubin NEGATIVE (Negative); Urine Blood Negative (Negative); Urine Clarity Extremely Turbid (Clear); Urine Color Light-Yellow (Yellow); Urine Culture Reflex Order REFLEXED; Urine Glucose NEGATIVE (Negative); Urine Ketones NEGATIVE (Negative); Urine Microscopic Reflex YN ORDER UMIC; Urine Mucus Slight /HPF (None Seen); Urine Nitrite NEGATIVE (Negative); Urine Protein TRACE (Negative); Urine RBC <5 /HPF (None Seen); Urine Urobilinogen Normal (Normal)
[2024-02-19] MEDS ORDERED: ONDANSETRON 4 MG/2 ML VIAL ONE (13:13)
[2024-02-19] MEDS ORDERED: NA CHLORIDE 0.9% 1,000 ML ONE (13:14)
[2024-02-19] MEDS ORDERED: MORPHINE 4 MG/ML SYR ONE (13:14)
[2024-02-19 13:15] LABS: Absolute Basophils 0.1 K/uL (0-0.5); Absolute Eosinophils 0.2 K/uL (0-0.5); Absolute Lymphocytes (CBC) 2.8 K/uL (0.7-4.9); Absolute Monocytes 0.8 K/uL (0.1-1.3); Absolute Neutrophil 7.1 K/uL (1.8-8.0); Basophils % 0.5 % (0-1.3); Hematocrit 36.4 % (36.0-45.0); Hemoglobin 11.8 g/dL (12.0-15.0); Lymphocytes % 25.4 % (15.3-44.8); MCH 26.9 pg (27.0-35.0); MCHC 32.5 g/dL (32.0-36.0); MCV 82.9 fL (80-100); Monocytes % 7.5 % (3.3-12.3); Neutrophils % 64.6 % (41.7-73.7); Platelets 407 thou/uL (152-406); RBC Red Blood Cell Count 4.39 M/uL (3.86-4.86); Red Cell Distribution Width 15.2 % (12.1-15.2)
[2024-02-19 13:33] LABS: Albumin 3.4 g/dL (3.4-5.0); Albumin/Globulin Ratio 0.8 (1.1-1.8); Bilirubin Total 0.2 mg/dL (0.2-1.0); Globulin 4.4 g/dL (2.3-3.5); Protein, Total 7.8 g/dL (6.4-8.2)
--- NOTE | 2024-02-19 13:37 | RAD REPORT ---
EXAM DESCRIPTION: CTAbdomen Pelvis W Contrast - 02/19/2024 1:27 pm CLINICAL HISTORY: Abdominal pain. ABD PAIN COMPARISON: No comparisons TECHNIQUE: Biphasic CT imaging of the abdomen and pelvis was performed with 100 ml non-ionic IV cont rast. All CT scans are performed using dose optimization technique as appropriate and may include automated exposure control or mA/KV adjustment according to patient size. FINDINGS: The lung bases are clear. The liver, spleen, pancreas, adrenal glands and kidneys are within normal limits. Small benign left r enal cyst. No bowel obstruction, free air, free fluid or abscess. Moderate fat containing umbilical hernia. Mode rate stool is present throughout the colon. The appendix is normal. No evidence of significant lymph adenopathy. No suspicious bony findings. IMPRESSION: No acute intra-abdominal or pelvic finding.
[2024-02-19] MEDS ORDERED: FENTANYL CITR 100 MCG/2 ML ONE (13:53)
--- NOTE | 2024-02-19 14:17 | RAD REPORT ---
EXAM DESCRIPTION: US - Abdomen Exam Limited - 02/19/2024 2:09 pm CLINICAL HISTORY: ABD PAIN COMPARISON: No comparisons FINDINGS: The gallbladder demonstrates no gallstones. No pericholecystic fluid or gallbladder wall t hickening. The common bile duct is normal measuring 3 mm. The liver demonstrates no findings of intrahepatic biliary dilatation. IMPRESSION: Unremarkable examination.
[2024-02-19] MEDS ORDERED: FAMOTIDINE 20 MG/2 ML VIAL IV ONE (14:24)
--- NOTE | 2024-02-19 15:25 | EDPHYS ---
Physician Documentation [facility] Name: Ariella Mei Age: 23 yrs Sex: Female : 2000 Arrival Date: 02/19/2024 Time: 11:51 Bed DX3 Private MD: ED Physician Denis Soto HPI: 02/18 12:16 This 23 yrs old Female presents to ER via Ambulatory with complaints of jh7 Nausea/Vomiting, Abdominal Pain. 12:16 The patient presents to the emergency department with nausea, vomiting, abdominal pain. jh7 Onset: The symptoms/episode began/occurred 3 day(s) ago. Possible causes: unknown. 23-year-old female with a past medical history of asthma and von Willebrand disease presents to the ER for nausea, vomiting, and right upper quadrant pain for the past 3 days. She denies fever, constipation, diarrhea, chest pain, or any other symptoms. She reports that it feels like her abdomen is mandeep.. Historical: - Allergies: 12:16 NKDA; ko1 - PMHx: 12:16 Asthma; bleeding disorder; Von Willebrand disease; ko1 - PSHx: 12:16 None; ko1 - Immunization history:: Adult Immunizations up to date. - Infectious Disease History:: Denies. - Social history:: Smoking status: Reported history of juuling and/or vaping. ROS: 12:16 Constitutional: Per HPI jh7 Exam: 12:16 Head/Face: Normocephalic, atraumatic. Eyes: Pupils equal round and reactive to light, jh7 extra-ocular motions intact. Lids and lashes normal. Conjunctiva and sclera are non-icteric and not injected. Cornea within normal limits. Periorbital areas with no swelling, redness, or edema. Neck: Trachea midline, no thyromegaly or masses palpated, and no cervical lymphadenopathy. Supple, full range of motion without nuchal rigidity, or vertebral point tenderness. No Meningismus. Cardiovascular: Regular rate and rhythm with a normal S1 and S2. No gallops, murmurs, or rubs. Normal PMI, no JVD. No pulse deficits. Respiratory: Lungs have equal breath sounds bilaterally, clear to auscultation and percussion. No rales, rhonchi or wheezes noted. No increased work of breathing, no retractions or nasal flaring. Back: No spinal tenderness. No costovertebral tenderness. Full range of motion. Skin: Warm, dry with normal turgor. Normal color with no rashes, no lesions, and no evidence of cellulitis. MS/ Extremity: Pulses equal, no cyanosis. Neurovascular intact. Full, normal range of motion. Neuro: Awake and alert, GCS 15, oriented to person, place, time, and situation. Motor strength 5/5 in all extremities. Sensory grossly intact. Normal gait. 12:16 Constitutional: The patient appears alert, awake, in obvious pain, 12:16 Abdomen/GI: Inspection: abdomen appears normal, Bowel sounds: normal, Palpation: soft, mild abdominal tenderness, in the epigastric area and right upper quadrant, Vital Signs: 12:14 BP 114 / 71; Pulse 84; Resp 16; Temp 97.4; Pulse Ox 100% ; ko1 15:29 BP 117 / 75; Pulse 65; Resp 16; Pulse Ox 100% ; as6 MDM: 11:58 Patient medically screened. [facility] 15:15 Differential diagnosis: gastritis, cholecystitis, pancreatitis, viral gastroenteritis, 7 gastroenteritis. Data reviewed: vital signs, nurses notes, lab test result(s), radiologic studies, CT scan, ultrasound. Management of patient was discussed with the following: Attending MD Dr. Gil Brunson. I considered the following discharge prescriptions or medication management in the emergency department Medications were administered in the Emergency Department. See MAR. Counseling: I had a detailed discussion with the patient and/or guardian regarding the historical points, exam findings, and any diagnostic results supporting the discharge/admit diagnosis, to return to the emergency department if symptoms worsen or persist or if there are any questions or concerns that arise at home. Response to treatment: the patient's symptoms have mildly improved after treatment. ED course: Reviewed all labs and imaging with the patient. She reported that she was still in pain and that the medications only slightly improved her symptoms. Advised her to avoid spicy and greasy foods (since she had a Sonic bag with her at discharge), take medication as directed, and return to the ER with any new concerning symptoms such as fever, worsening pain, chest pain, or shortness of breath.. 02/18 12:21 Order name: CBC with Diff; Complete Time: 13:42 jh7 02/18 12:21 Order name: CMP; Complete Time: 13:42 [facility] 02/18 12:21 Order name: Lipase; Complete Time: 13:42 [facility] 02/18 12:21 Order name: Test, Urine; Complete Time: 13:04 [facility] 02/18 12:21 Order name: Urinalysis w/ reflexes; Complete Time: 13:04 [facility] 02/18 12:58 Order name: Urine Culture [facility] 02/18 12:21 Order name: CT Abd/Pelvis - IV Contrast Only; Complete Time: 13:42 [facility] 02/18 13:43 Order name: Abdomen Limited US; Complete Time: 14:20 [facility] 02/18 12:21 Order name: IV Saline Lock; Complete Time: 13:10 [facility] 02/18 12:21 Order name: Labs collected and sent; Complete Time: 13:10 [facility] 02/18 14:21 Order name: PO challenge; Complete Time: 14:26 [facility] Administered Medications: 13:18 Drug: NS 0.9% IV 1000 ml IV at 1 bolus Per protocol; 1000 mL bolus Route: IV; Rate: 1 as6 bolus; Site: right antecubital; 15:33 Follow up: Response: No adverse reaction; IV Status: Completed infusion; IV Intake: as6 1000ml 13:18 Drug: Ondansetron IVP 4 mg IVP once; over 2 minutes Route: IVP; Site: right antecubital;as6 15:33 Follow up: Response: No adverse reaction as6 13:18 Drug: morphine IVP or IV 4 mg IVP once over 4 mins Route: IVP; Infused Over: 4 mins; as6 Site: right antecubital; 15:33 Follow up: Response: No adverse reaction as6 14:06 Drug: fentaNYL (PF) IVP 50 mcg IVP once Route: IVP; Site: right antecubital; as6 15:33 Follow up: Response: No adverse reaction as6 14:26 Drug: Famotidine IVP 20 mg IVP once; dilute with 10 mL 0.9% NaCl; give over 2 minutes as6 Route: IVP; Site: right antecubital; 15:33 Follow up: Response: No adverse reaction as6 15:02 Drug: Droperidol IVP 1.25 mg IVP once Route: IVP; Site: right antecubital; as6 15:33 Follow up: Response: No adverse reaction as6 Disposition: 19:56 Co-signature as Attending Physician, Denis Soto MD I reviewed the patient's care rn provided by the Advanced Practice Provider and agree with the diagnosis and treatment plan. Disposition Summary: 02/19/24 15:25 Discharge Ordered Notes: Location: Home [facility] Problem: new jh7 Symptoms: are unchanged jh7 Condition: Stable jh7 Diagnosis - Abdominal pain, unspecified jh7 - Nausea with vomiting, unspecified jh7 Followup: [facility] - With: Private Physician - When: 2 - 3 days - Reason: Recheck today's complaints Discharge Instructions: - Discharge Summary Sheet jh7 - Abdominal Pain, Adult jh7 - Nausea and Vomiting, Adult jh7 Forms: - Work release form as6 - Medication Reconciliation Form jh7 - Thank You Letter jh7 - Patient Portal Instructions 7 - Leadership Thank You Letter 7 Prescriptions: - ondansetron 4 mg Oral Tablet,disintegrating - take 1 tablet ORAL route every 4-6 hours As needed; 20 tablet; Refills: 0, jh7 Product Selection Permitted - Levsin 0.125 mg Oral Tablet - take 1 tablet ORAL route every 8 hours; 30 tablet; Refills: 0, Product jh7 Selection Permitted Signatures: Dispatcher [employer] Denis Khan MD MD rn Slawson, Ashby RN RN as6 Leticia Agarwal FNP [place] [id number] Billie Armendariz, RN RN ko1
--- NOTE | 2024-02-19 15:25 | ER ---
Nurse's Notes [facility] Name: Ariella Mei Age: 23 yrs Sex: Female : 2000 Arrival Date: 02/19/2024 Time: 11:51 Bed DX3 Private MD: Diagnosis: Abdominal pain, unspecified;Nausea with vomiting, unspecified Presentation: 02/18 12:14 Chief complaint: Patient states: missed monthly cycle, has had negative preg tests, ko1 pain continues to RUQ. Coronavirus screen: At this time, the client does not indicate any symptoms associated with coronavirus-19. Ebola Screen: No symptoms or risks identified at this time. Initial Sepsis Screen: Does the patient meet any 2 criteria? No. Patient's initial sepsis screen is negative. Does the patient have a suspected source of infection? No. Patient's initial sepsis screen is negative. Risk Assessment: Do you want to hurt yourself or someone else? Patient reports no desire to harm self or others. Onset of symptoms is unknown. 12:14 Method Of Arrival: Ambulatory ko1 12:14 Acuity: JEFF 3 ko1 Triage Assessment: 12:16 General: Appears in no apparent distress. Behavior is calm, cooperative, appropriate ko1 for age. Pain: Complains of pain in right upper quadrant. GI: Reports upper abdominal pain. Historical: - Allergies: 12:16 NKDA; ko1 - PMHx: 12:16 Asthma; bleeding disorder; Von Willebrand disease; ko1 - PSHx: 12:16 None; ko1 - Immunization history:: Adult Immunizations up to date. - Infectious Disease History:: Denies. - Social history:: Smoking status: Reported history of juuling and/or vaping. Screenin:34 [facility] ED Fall Risk Assessment (Adult) History of falling in the last 3 months, as6 including since admission No falls in past 3 months (0 pts). Abuse screen: Denies threats or abuse. Denies injuries from another. Nutritional screening: No deficits noted. Tuberculosis screening: No symptoms or risk factors identified. Assessment: 15:35 Reassessment: pt states slight improvements in pain. as6 Vital Signs: 12:14 BP 114 / 71; Pulse 84; Resp 16; Temp 97.4; Pulse Ox 100% ; ko1 15:29 BP 117 / 75; Pulse 65; Resp 16; Pulse Ox 100% ; as6 ED Course: 11:53 Patient arrived in ED. mg5 11:58 Leticia Agarwal FNP [facility] jh7 11:58 Denis Soto MD is Attending Physician. jh7 12:16 Triage completed. ko1 12:16 Arm band placed on right wrist. Patient placed in waiting room, Patient notified of ko1 wait time. 13:10 CBC with Diff Sent. as6 13:10 CMP Sent. as6 13:10 Lipase Sent. as6 13:28 CT Abd/Pelvis - IV Contrast Only In Process Unspecified. EDMS 14:11 Abdomen Limited US In Process Unspecified. EDMS 15:33 Patient has correct armband on for positive identification. Provided Education on: as6 follow up. 15:33 No provider procedures requiring assistance completed. IV discontinued, intact, as6 bleeding controlled, No redness/swelling at site. Pressure dressing applied. Administered Medications: 13:18 Drug: NS 0.9% IV 1000 ml IV at 1 bolus Per protocol; 1000 mL bolus Route: IV; Rate: 1 as6 bolus; Site: right antecubital; 15:33 Follow up: Response: No adverse reaction; IV Status: Completed infusion; IV Intake: as6 1000ml 13:18 Drug: Ondansetron IVP 4 mg IVP once; over 2 minutes Route: IVP; Site: right antecubital;as6 15:33 Follow up: Response: No adverse reaction as6 13:18 Drug: morphine IVP or IV 4 mg IVP once over 4 mins Route: IVP; Infused Over: 4 mins; as6 Site: right antecubital; 15:33 Follow up: Response: No adverse reaction as6 14:06 Drug: fentaNYL (PF) IVP 50 mcg IVP once Route: IVP; Site: right antecubital; as6 15:33 Follow up: Response: No adverse reaction as6 14:26 Drug: Famotidine IVP 20 mg IVP once; dilute with 10 mL 0.9% NaCl; give over 2 minutes as6 Route: IVP; Site: right antecubital; 15:33 Follow up: Response: No adverse reaction as6 15:02 Drug: Droperidol IVP 1.25 mg IVP once Route: IVP; Site: right antecubital; as6 15:33 Follow up: Response: No adverse reaction as6 Medication: 15:34 VIS not applicable for this client. as6 Intake: 15:33 IV: 1000ml; Total: 1000ml. as6 Outcome: 15:25 Discharge ordered by . jh7 15:34 Discharged to home ambulatory, with friend, as6 15:34 Condition: stable 15:34 Discharge instructions given to patient, Instructed on discharge instructions, follow up and referral plans. medication usage, Demonstrated understanding of instructions, follow-up care, medications, Prescriptions given X 2, 15:35 Patient left the ED. as6 Signatures: Dispatcher [employer] Evaristo Johns, RN RN as6 Leticia Agarwal FNP FNP jh7 Billie Armendariz, RN RN ko1 Cheryl Briscoe mg5
[2024-02-19 16:17] VITALS: BP 117/75; TEMP 97.4; O2SAT 100
== END 2024-02-19 15:35 | disposition home or self-care (01) ==
LOC: ER 11:51
DX: R10.11 Right upper quadrant pain (principal); R11.2 Nausea with vomiting, unspecified
CPT/HCPCS: 96361; 87088; 85025; 81001; 87086; 36415; 81025; 83690; 80053; 74177; 76705; 96375; 96374; 99284; Q9967; J3010; J2405; J7030